=== PATIENT | male | born 1955 | race Caucasian/White ===

== ENCOUNTER → 2020-02-24 18:46 | Outpatient (ROUT) | payer MEDICARE, SELFPAY ==
[2020-02-24 19:03] LABS: Add Manual Diff / Slide Review NO; Basophils Absolute Auto 0 /uL (0-100); Basophils Percent Auto 0.3 % (0-2); Eosinophils Absolute Auto 0 /uL (0-450); Eosinophils Percent Auto 0.2 % (2-4); Hematocrit 49.6 % (41-53); Hemoglobin 16.5 g/dL (13.5-17.5); Lymphocytes Absolute Auto 2300 /uL (1100-4500); Lymphocytes Percent Auto 23.7 % (25-40); Mean Corpuscular HGB Conc 33.3 % (30-36); Mean Corpuscular Hemoglobin 30.3 PG (26-34); Mean Corpuscular Volume 90.8 fL (80-100); Monocytes Absolute Auto 700 /uL (0-900); Monocytes Percent Auto 7.3 % (3-14); Neutrophils Absolute Auto 6500 /uL (1500-7000); Neutrophils Percent Auto 68.5 % (50-75); Platelet Count 314 X10^3/uL (150-400); Red Blood Cell Count 5.47 X10^6/uL (4.5-5.9); Red Cell Distribution Width 14.3 % (11.6-14.8); White Blood Cell Count 9.5 X10^3/uL (4.5-11.0)
[2020-02-24 19:07] LABS: HEMOLYSIS < 15 (0-50); Iron 90 ug/dL (49-181)
[2020-02-24 19:13] LABS: Alanine Aminotransferase 26 IU/L (<50); Albumin 4.9 g/dL (3.5-5.0); Albumin Globulin Ratio 1.8 (1.0-2.8); Alkaline Phosphatase 121 U/L (38-126); Aspartate Aminotransferase 36 IU/L (17-59); BUN Creatinine Ratio 14.7 (6-22); Bilirubin Total 0.7 mg/dL (0.2-1.3); Blood Urea Nitrogen 10 mg/dL (9-20); Carbon Dioxide 21 mmol/L (22-32); Chloride 106 mmol/L (98-107); Cholesterol 255 mg/dL (140-199); Estimated Glomerular Filt Rate > 60.0 mL/min (>60); Globulin 2.8 g/dL (1.7-4.1); Glucose 97 mg/dL (80-110); HDL Cholesterol 46 mg/dL (40-60); HEMOLYSIS < 15 (0-50); LDL Cholesterol Calculated 175 mg/dL (<100); Potassium 4.1 mmol/L (3.4-5.1); Sodium 138 mmol/L (137-145); Total Protein 7.7 g/dL (6.3-8.2); Triglycerides 170 mg/dL (35-150)
[2020-02-24 19:18] LABS: Percent Iron Saturation 24 % (20-50); Total Iron Binding Capacity 377 ug/dL (261-462); Transferrin 296 mg/dL (206-381)
[2020-02-24 19:40] LABS: Prostate Specific Antigen 0.555 ng/mL (0.10-4.00)
[2020-02-24 19:44] LABS: Ferritin 27 ng/mL (18-464)
[2020-02-24 19:58] LABS: Vitamin B12 219 pg/mL (239-931)
== END ==
PROVIDERS: PCP Internal Medicine; Visit Provider Internal Medicine
DX: Z00.00 Encounter for general adult medical examination without abnormal findings (principal); R53.83 Other fatigue; D50.0 Iron deficiency anemia secondary to blood loss (chronic); E53.8 Deficiency of other specified B group vitamins; R39.9 Unspecified symptoms and signs involving the genitourinary system
CPT/HCPCS: 80053; 80061; 82607; 82728; 83540; 83550; 84153; 85025; 87086

== ENCOUNTER 2020-10-19 14:36 | Observation (INO) | payer OTHER, SELFPAY ==
[2020-10-19] VITALS (14 sets, daily range): BP systolic 150–201; BP diastolic 97–114; PULSE 80–99; RESP 17–22; TEMP 36.9; O2SAT 96–99
--- NOTE | 2020-10-19 14:49 | ED_ITS ---
HPI - General Adult General Chief complaint: Chest Pain Stated complaint: Chest pain, left arm pain, elev BP Time Seen by Provider: 10/19/20 14:48 Source: patient Mode of arrival: Ambulatory Limitations: no limitations History of Present Illness HPI narrative: Patient is a 65-year-old male. Has had a prior history of hypertension but is not currently on any medications. He states that he has new provider to come off his medications and he has been maintaining his high blood pressure based on diet and exercise. He states that 3 days ago he started to have upper back discomfort. He thinks that he woke up with the symptoms. Has been worsening slightly since then. Does not seem to get worse with palpation or movement however he does think it is worse with sitting. He denies any chest pain or shortness of breath. He also started to have left arm discomfort this morning. He describes it as a pressure sensation in his left arm and also somewhat into the left side of his neck. Is not worse with movement or touching. He also took his blood pressure today and it was elevated and was not going down on its own so decided come to the emergency department for evaluation. Related Data Allergies Allergy/AdvReac Type Severity Reaction Status Date / Time Morphine Allergy Unknown Uncoded 11/13/17 12:13 Review of Systems Constitutional Constitutional: Denies chills and Denies fever(s) ENT Ears, Nose, Mouth, and Throat: Denies sore throat Cardiovascular Cardiovascular: Denies chest pain, Denies dyspnea and Denies dyspnea on exertion Respiratory Respiratory: Denies cough, Denies dyspnea and Denies dyspnea on exertion Gastrointestinal Gastrointestinal: Denies abdominal pain, Denies nausea and Denies vomiting Musculoskeletal Musculoskeletal: Reports back pain (Upper back pain) Comments: Left arm pain Integumentary/Breasts Skin/Breast: Denies rash Neurologic Neurologic: Denies behavioral changes Psychiatric Psychiatric: Denies behavioral changes Hematologic/Lymphatic On Anticoagulants: No Patient History Medical History Hypertension Social History lives independently: Yes Exam Initial Vital Signs Initial Vital Signs: Vital Signs Temperature 98.5 F 10/19/20 15:05 Pulse Rate 98 H 10/19/20 15:05 Respiratory Rate 22 10/19/20 15:05 Blood Pressure 201/114 H 10/19/20 15:05 Pulse Oximetry 99 10/19/20 15:05 Const General: cooperative Limitations: mental status not altered HENMT Head: normal to inspection and normocephalic Chest Chest: No crepitus and No tenderness Resp Effort & Inspection: normal respiratory effort Auscultation: clear to auscultation bilaterally Cardio Rate: regular rate Rhythm: regular rhythm Pulses: dorsalis pedis present bilaterally GI Inspection: non-distended Palpation: soft, No firm and No tender Back/Spine/Pelvis Cervical Spine: No cervical spinal tenderness Thoracic/Lumbar Spine: No paraspinal tenderness, No thoracic spinal tenderness and No lumbar spinal tenderness Skin Lesions: no lesions Rashes: no rashes Neuro General: patient alert, patient awake and patient oriented x3 Cognition: normal cognition Speech: speech normal Extrem General: normal to inspection and capillary refill normal Psych Appearance: grossly normal and well kempt Scores HEART Score Heart Score history: Moderately Suspicious Heart Score EKG: Non-Specific repolarization disturbance Heart Score Age: > or = 65 years old Heart Score risk factors: 1-2 risk factors Heart Score troponin: < or = to normal limit Heart Score Total: 5 Course Orders Ordered: ED Orders 10/19/20 13:45 Complete Blood Count AUTO DIFF Stat Comprehensive Metabolic Panel Stat Lipase Stat Partial Thromboplastin Time Stat Prothrombin Time INR Stat Troponin & CK Cardiac Panel Stat 10/19/20 14:49 EKG-12 Lead Stat 10/19/20 14:50 XR chest 1V Stat 10/19/20 15:00 CT angio chest abdomen pelvis Stat 10/19/20 17:35 COVID19 - ADMIT ([facility] OPER[facility] swab/PCR) Stat Discontinued Medications Lisinopril (Lisinopril 10 Mg Tablet) 10 mg PO NOW ONE Stop: 10/19/20 17:25 Last Admin: 10/19/20 17:36 Dose: 10 mg Documented by: Vital Signs Vital signs: Vital Signs - 8 hr 10/19/20 15:05 10/19/20 15:38 10/19/20 16:00 Temperature 98.5 F Pulse Rate 98 H 92 H 94 H Respiratory Rate 22 17 20 Blood Pressure 201/114 H 171/108 H Pulse Oximetry 99 98 10/19/20 16:01 10/19/20 16:53 10/19/20 16:54 Temperature Pulse Rate 90 91 H 94 H Respiratory Rate 18 Blood Pressure 199/102 H 195/105 H Pulse Oximetry 98 96 98 10/19/20 17:00 10/19/20 17:30 10/19/20 17:36 Temperature Pulse Rate 93 H 91 H 99 H Respiratory Rate Blood Pressure 195/104 H 199/113 H 199/113 H Pulse Oximetry 98 98 Medical Decision Making Lab Data Lab results reviewed: Yes I reviewed the patient's lab results. Result diagrams: 10/19/20 13:45 10/19/20 13:45 Labs: Lab Results 10/19/20 10/19/20 10/19/20 Range/Units 13:45 13:45 13:45 WBC 13.1 H (4.5-11.0) X10^3/uL RBC 5.64 (4.5-5.9) X10^6/uL Hgb 17.4 (13.5-17.5) g/dL Hct 51.2 (41-53) % MCV 90.8 (80-100) fL MCH 30.8 (26-34) PG MCHC 33.9 (30-36) % RDW 13.2 (11.6-14.8) % Plt Count 362 (150-400) X10^3/uL Neut % (Auto) 56.6 (50-75) % Lymph % (Auto) 32.8 (25-40) % [place] % (Auto) 9.4 (3-14) % Eos % (Auto) 0.4 L (2-4) % Baso % (Auto) 0.8 (0-2) % Neut # (Auto) 7400 H (3597-8145) /uL Lymph # (Auto) 4300 (1840-7587) /uL [place] # (Auto) 1200 H (0-900) /uL Eos # (Auto) 100 (0-450) /uL Baso # (Auto) 100 (0-100) /uL PT 12.1 (10.1-12.7) SECONDS INR 1.1 (0.9-1.3) APTT 34 (26.4-36.2) SECONDS Sodium 138 (137-145) mmol/L Potassium 4.0 (3.4-5.1) mmol/L Chloride 103 (98-107) mmol/L Carbon Dioxide 23 (22-32) mmol/L BUN 14 (9-20) mg/dL Creatinine 0.77 (0.66-1.25) mg/dL Estimated GFR > 60.0 (>60) mL/min BUN/Creatinine Ratio 18.2 (6-22) Glucose 113 H (80-110) mg/dL Calcium 9.6 (8.4-10.2) mg/dL Total Bilirubin 0.4 (0.2-1.3) mg/dL AST 39 (17-59) IU/L ALT 36 (<50) IU/L Alkaline Phosphatase 129 H (38-126) U/L Total Creatine Kinase 98 (55-170) U/L CK-MB (CK-2) TNP CK-MB (CK-2) Rel Index TNP Troponin I < 0.012 (0.01-0.034) ng/mL Total Protein 8.6 H (6.3-8.2) g/dL Albumin 5.1 H (3.5-5.0) g/dL Globulin 3.5 (1.7-4.1) g/dL Albumin/Globulin Ratio 1.5 (1.0-2.8) Lipase 64 (23-300) U/L Imaging Data Chest x-ray: Radiologist's Impression: [address] [id number] ReportSigned Patient: Harrison Will R#: [id number]: 5Acct:[id number]/Sex: 65 / MDate of Service: 10/19/20Loc: EDAccession Number: [id number] Procedure: XR chest 1V Ordering Provider: Ryan Kennedy D.O. PROCEDURE: XR CHEST 1V INDICATIONS: Chest pain TECHNIQUE: One view of the chest was acquired. COMPARISON: None. FINDINGS: Surgical changes and devices: None. Lungs and pleura: Lungs are clear. No pleural effusions or pneumothorax. Mediastinum: Mediastinal contours appear normal. Heart size is normal. Bones and chest wall: No suspicious bony lesions. Overlying soft tissues appear unremarkable. IMPRESSION: No acute cardiopulmonary abnormality. Dictated by: Christopher Dawn M.D. on 10/19/2020 at 14:19 Approved by: Christopher Dawn M.D. on 10/19/2020 at 14:20 CT chest/abd/pelvis: Radiologist's Impression: [place] [id number] [place] [id number] Scan ReportSigned Patient: Harrison Will LMR#: [id number]: 5Acct:[id number]/Sex: 65 / MDate of Service: 10/19/20Loc: EDAccession Number: [id number] Procedure: CT angio chest abdomen pelvis Ordering Provider: Ryan Kennedy D.O. PROCEDURE: CT ANGIO CHEST ABDOMEN PELVIS INDICATIONS: Upper back pain and L arm pain, HTN eval for dissection TECHNIQUE: Precontrast 5 mm thick sections acquired from the lung apices to the iliac crests. After the administration of intravenous contrast, 2.5 mm thick sections again acquired from the lung apices to the iliac crests. Maximum intensity projection (MIP) oblique sagittal and coronal reformats were then acquired. For radiation dose reduction, the following was used: automated exposure control. COMPARISON: Merged With [facility], CT, ABDOMEN/PELVIS WITH CONTRAST, 02/28/2012, 10:01. [facility], CT, CT ABDOMEN PELVIS WITHOUT CONTRAST, 06/12/2017, 17:00. FINDINGS: Image quality: Excellent. AORTA: Aorta is normal in caliber. No dissection. There is mild atherosclerosis. CHEST: Lungs and pleura: Mild ground-glass infiltrates in the right lower lobe. There is a 2 mm nodule in the right upper lobe (series 6 image 100). No pleural effusions or pneumothorax. Central and peripheral airways are patent and normal in caliber. Mediastinum: Heart size is normal. There is moderate coronary artery calcification. No pericardial effusion. No mediastinal or hilar adenopathy by size criteria. Central pulmonary arteries are normal in size. Esophagus is normal in caliber. Small hiatal hernias. Bones and chest wall: No axillary adenopathy by size criteria. Thyroid gland is normal. No suspicious bony lesions. No vertebral body compression fractures. ABDOMEN: Vasculature: Celiac trunk and mesenteric arteries are patent. Renal arteries are also patent. Solid organs: Liver is normal in size and enhancement. Gallbladder is surgically absent. Biliary system is non dilated. Pancreas enhances normally. Spleen is normal in size and enhancement. No adrenal nodules. Both kidneys are normal in size and enhancement, without hydronephrosis. Peritoneum and bowel: No free fluid or air. Bowel loops are normal in caliber and wall thickness. There are numerous colonic diverticula. No CT findings to suggest acute diverticulitis. Nodes and vessels: No retroperitoneal or mesenteric adenopathy by size criteria. Inferior vena cava is normal in morphology. Miscellaneous: There are 3 small ventral hernias. A subxiphoid ventral hernia contains fat only. Just inferior and right, another ventral hernia contains a small segment of transverse colon. A periumbilical hernia contains a small segment of small intestine. Postsurgical changes related to prior ventral hernia repair. PELVIS: Genitourinary: Bladder wall thickness is normal. Miscellaneous: No inguinal adenopathy. Small fat containing inguinal hernias bilaterally. Bones: No suspicious bony lesions. No vertebral body compression fractures. IMPRESSION: 1. No aortic aneurysm or dissection. 2. Moderate coronary artery calcification. 3. A 2 mm right upper lobe lung nodule. Please see in close follow-up recommendation. 4. Diverticulosis without acute diverticulitis. 5. Multiple ventral hernias. Fleischner Society criteria for SOLID lung nodule followup. Nodule size (mm)Low-risk patientHigh-risk patient?4No follow-up neededFollow-up at 12 mo; if no change, no further follow-up>[id number] CT at 12 mo; if no change, no further follow-up needed.Initial follow-up CT at 6-12 mo, then 18-24 mo if no change. >6-8Initial follow-up CT at 6-12 mo, then 18-24 mo if no change. Initial follow- up CT at 3-6 mo, then 9-12 mo and 24 mo if no change. >8Follow-up CT at 3, 9, 24 mo. Or PET and/or biopsy.Same as for low-risk pts. Dictated by: Lucas Milton M.D. on 10/19/2020 at 15:30 Approved by: Lucas Milton M.D. on 10/19/2020 at 15:52 ECG Data Attestation: I personally reviewed and interpreted this ECG as follows: Prior ECG tracings: not available for review Interpretation: Sinus tachycardia Ventricular rate 101 Normal axis Normal QRS Normal QTC Nonspecific ST T wave changes MDM Narrative Medical decision making narrative: Patient does have nonspecific changes on his EKG. Troponin was negative. Has a heart score of 5. CT scan does not show any signs of aortic dissection. Had a discussion with him regarding his symptoms. Discussed options to include being discharged home versus staying for 2nd troponin versus being admitted to the hospital for risk stratification. He opted to be admitted to the hospital. Discussed the case with Dr. Greenberg with Internal Medicine who will admit for further evaluation. Patient expressed understanding and agreement. Discharge Plan Departure Patient Disposition: Admitted as Observation Admit Date/Time: 10/19/20 17:36 Admit Provider: Ash Greenberg
[2020-10-19 14:54] LABS: Add Manual Diff / Slide Review NO; Basophils Absolute Auto 100 /uL (0-100); Basophils Percent Auto 0.8 % (0-2); Eosinophils Absolute Auto 100 /uL (0-450); Eosinophils Percent Auto 0.4 % (2-4); Hematocrit 51.2 % (41-53); Hemoglobin 17.4 g/dL (13.5-17.5); Lymphocytes Absolute Auto 4300 /uL (1100-4500); Lymphocytes Percent Auto 32.8 % (25-40); Mean Corpuscular HGB Conc 33.9 % (30-36); Mean Corpuscular Hemoglobin 30.8 PG (26-34); Mean Corpuscular Volume 90.8 fL (80-100); Monocytes Absolute Auto 1200 /uL (0-900); Monocytes Percent Auto 9.4 % (3-14); Neutrophils Absolute Auto 7400 /uL (1500-7000); Neutrophils Percent Auto 56.6 % (50-75); Platelet Count 362 X10^3/uL (150-400); Red Blood Cell Count 5.64 X10^6/uL (4.5-5.9); Red Cell Distribution Width 13.2 % (11.6-14.8); White Blood Cell Count 13.1 X10^3/uL (4.5-11.0)
[2020-10-19 14:59] LABS: INR 1.1 (0.9-1.3); Prothrombin Time 12.1 SECONDS (10.1-12.7)
--- NOTE | 2020-10-19 15:00 | DI.CT.S_ITS ---
PROCEDURE: CT ANGIO CHEST ABDOMEN PELVIS INDICATIONS: Upper back pain and L arm pain, HTN eval for dissection TECHNIQUE: Precontrast 5 mm thick sections acquired from the lung apices to the iliac crests. After the administration of intravenous contrast, 2.5 mm thick sections again acquired from the lung apices to the iliac crests. Maximum intensity projection (MIP) oblique sagittal and coronal reformats were then acquired. For radiation dose reduction, the following was used: automated exposure control. COMPARISON: [facility], CT, ABDOMEN/PELVIS WITH CONTRAST, 02/28/2012, 10:01. [facility], CT, CT ABDOMEN PELVIS WITHOUT CONTRAST, 06/12/2017, 17:00. FINDINGS: Image quality: Excellent. AORTA: Aorta is normal in caliber. No dissection. There is mild atherosclerosis. CHEST: Lungs and pleura: Mild ground-glass infiltrates in the right lower lobe. There is a 2 mm nodule in the right upper lobe (series 6 image 100). No pleural effusions or pneumothorax. Central and peripheral airways are patent and normal in caliber. Mediastinum: Heart size is normal. There is moderate coronary artery calcification. No pericardial effusion. No mediastinal or hilar adenopathy by size criteria. Central pulmonary arteries are normal in size. Esophagus is normal in caliber. Small hiatal hernias. Bones and chest wall: No axillary adenopathy by size criteria. Thyroid gland is normal. No suspicious bony lesions. No vertebral body compression fractures. ABDOMEN: Vasculature: Celiac trunk and mesenteric arteries are patent. Renal arteries are also patent. Solid organs: Liver is normal in size and enhancement. Gallbladder is surgically absent. Biliary system is non dilated. Pancreas enhances normally. Spleen is normal in size and enhancement. No adrenal nodules. Both kidneys are normal in size and enhancement, without hydronephrosis. Peritoneum and bowel: No free fluid or air. Bowel loops are normal in caliber and wall thickness. There are numerous colonic diverticula. No CT findings to suggest acute diverticulitis. Nodes and vessels: No retroperitoneal or mesenteric adenopathy by size criteria. Inferior vena cava is normal in morphology. Miscellaneous: There are 3 small ventral hernias. A subxiphoid ventral hernia contains fat only. Just inferior and right, another ventral hernia contains a small segment of transverse colon. A periumbilical hernia contains a small segment of small intestine. Postsurgical changes related to prior ventral hernia repair. PELVIS: Genitourinary: Bladder wall thickness is normal. Miscellaneous: No inguinal adenopathy. Small fat containing inguinal hernias bilaterally. Bones: No suspicious bony lesions. No vertebral body compression fractures. IMPRESSION: 1. No aortic aneurysm or dissection. 2. Moderate coronary artery calcification. 3. A 2 mm right upper lobe lung nodule. Please see in close follow-up recommendation. 4. Diverticulosis without acute diverticulitis. 5. Multiple ventral hernias. Fleischner Society criteria for SOLID lung nodule followup. Nodule size (mm)Low-risk patientHigh-risk patient?4No follow-up neededFollow-up at 12 mo; if no change, no further follow-up>[id number] CT at 12 mo; if no change, no further follow-up needed.Initial follow-up CT at 6-12 mo, then 18-24 mo if no change. >6-8Initial follow-up CT at 6-12 mo, then 18-24 mo if no change. Initial follow-up CT at 3-6 mo, then 9-12 mo and 24 mo if no change. >8Follow-up CT at 3, 9, 24 mo. Or PET and/or biopsy.Same as for low-risk pts. Dictated by: Lucas Milton M.D. on 10/19/2020 at 15:30 Approved by: Lucas Milton M.D. on 10/19/2020 at 15:52
[2020-10-19 15:02] LABS: PTT Partial Thromboplastin Tim 34 SECONDS (26.4-36.2)
[2020-10-19 15:04] LABS: Alanine Aminotransferase 36 IU/L (<50); Albumin 5.1 g/dL (3.5-5.0); Albumin Globulin Ratio 1.5 (1.0-2.8); Alkaline Phosphatase 129 U/L (38-126); Aspartate Aminotransferase 39 IU/L (17-59); BUN Creatinine Ratio 18.2 (6-22); Bilirubin Total 0.4 mg/dL (0.2-1.3); Blood Urea Nitrogen 14 mg/dL (9-20); Calcium 9.6 mg/dL (8.4-10.2); Carbon Dioxide 23 mmol/L (22-32); Chloride 103 mmol/L (98-107); Creatine Kinase 98 U/L (55-170); Estimated Glomerular Filt Rate > 60.0 mL/min (>60); Globulin 3.5 g/dL (1.7-4.1); Glucose 113 mg/dL (80-110); HEMOLYSIS 18 (0-50); Lipase 64 U/L (23-300); Sodium 138 mmol/L (137-145); Total Protein 8.6 g/dL (6.3-8.2)
[2020-10-19 15:15] LABS: Troponin I < 0.012 ng/mL (0.01-0.034)
[2020-10-19] MEDS: lisinopriL 10 MG TABLET PO (17:36)
[2020-10-19 19:00] LABS: COVID19 - ADMIT (NP swab/PCR) Negative (Negative)
[2020-10-19 20:00] LABS: Hemoglobin A1C% w Est Avg Glu 5.6 % (4.0-6.0)
--- NOTE | 2020-10-19 20:34 | PM.HP.1 ---
History of Present Illness History of Present Illness Date Patient Seen: 10/19/20 Time Patient Seen: 20:00 Chief complaint: Chest pain, left arm pain, elev BP Narrative: Harrison Will is a 65 y.o. male with a past history of hypertension who presented to the ED after being seen at an urgent care clinic in [place] for elevated blood pressure, back and left arm pain he has had for the past 2 days. He normally takes his own blood pressures at home. He states that it is normally in the 150 over 90s. For the last couple of days it arose to 170/90 and today it was 189/102 rising as high as 190/120 in 3 serial blood pressures. He endorses having a headache, pain in his upper back that radiates to his left arm but no chest pain. He then went into the walk-in clinic and was advised to present to the emergency department due to his elevated blood pressure. He does endorse not being able to keep warm, denies visual changes denies difficulty swallowing denies chest pain or palpitations, denies shortness of breath her cough, denies nausea or vomiting but does have chronic abdominal pain due to having 3 abdominal ventral hernias, he denies dysuria or retention, he has chronic body aches and pains, he denies any skin lesions or rash, denies any numbing or tingling but did have headache which he does not normally have, denies any polyuria, diarrhea or constipation. In the ED, he received Lisinpril 10 mg po X 1 and an EKG done. Initial troponin was negative. Patient is afebrile, blood pressure 160/110, initial presenting blood pressure was 201/114, heart rate 94, respiratory rate 18, oxygen saturation of 98% on room air, he weighs 84.5 kg with a BMI of 30. WBC is mildly elevated at 13.1 rest of his CBC is within normal limits he does have a slight left shift, INR is 1.1, glucose is mildly elevated at 113, alk-phos is elevated at 129, total protein 8.6, albumin globulin ratio is 1.5, lipase is 64, and COVID-19 PCRs negative. Patient History Medical History (Updated 10/19/20 @ 20:36 by CRISTO Manning) History of ventral hernia Hypertension Hypertension Family & Social History Family History (Updated 03/17/21 @ 21:11 by CRISTO Manning) Mother Cancer Father Colon cancer Myocardial infarction Brother Hypertension Diabetes mellitus Brother Diabetes mellitus Hypertension Social History: household members none Prior Living Arrangements Apartment/Condo lives independently Yes Safety & Behavioral: Feels Safe in Current Yes Environment Been Physically Hurt or No Threatened By a Person Suicidal Ideation Description None Suicide Plan Description No Plan Tobacco & Substance use: Smoking Status Never smoker alcohol intake current alcohol intake frequency holiday/special occasion Substance Use Type does not use Meds Home Medications and Allergies Home Medications Medication Instructions Recorded Confirmed Type acetaminophen [Tylenol Extra 2,000 mg PO BEDTIME PRN 10/19/20 10/19/20 History Strength] Allergies Allergy/AdvReac Type Severity Reaction Status Date / Time morphine Allergy Unknown Verified 10/19/20 19:39 Review of Systems Review of Systems ROS: Yes All systems reviewed with the patient and are negative except as otherwise documented Exam Vital Signs (past 8 hours): - 10/19/20 15:05 10/19/20 15:38 10/19/20 16:00 Temperature 98.5 F Pulse Rate 98 H 92 H 94 H Respiratory Rate 22 17 20 Blood Pressure 201/114 H 171/108 H Pulse Oximetry 99 98 10/19/20 16:01 10/19/20 16:53 10/19/20 16:54 Temperature Pulse Rate 90 91 H 94 H Respiratory Rate 18 Blood Pressure 199/102 H 195/105 H Pulse Oximetry 98 96 98 10/19/20 17:00 10/19/20 17:30 10/19/20 17:36 Temperature Pulse Rate 93 H 91 H 99 H Respiratory Rate Blood Pressure 195/104 H 199/113 H 199/113 H Pulse Oximetry 98 98 10/19/20 18:00 10/19/20 19:27 10/19/20 19:50 Temperature 98.5 F Pulse Rate 89 98 H Respiratory Rate 18 Blood Pressure 177/108 H 182/106 H Pulse Oximetry 98 98 98 Oxygen Delivery Method Room Air Narrative Exam Narrative: Gen: Alert, oriented, moderately overweight 65 y.o. male, non-toxic appearing HEENT: normocephalic, atraumatic, conjunctiva clear, sclera non-icteric, oral mucosa pink and moist Neck: supple, full ROM, no JVD, trachea is midline Resp: Lungs CTA, non-labored breathing CV: RRR, no murmur or rubs Abd: soft, non-tender, normoactive BTs Skin: no lesions or rashes, dry and intact Neuro: Alert and oriented X 4 w/no focal deficits. Speech clear and coherent. Extremities: moves all 4 extremities, is ambulatory, negative Tacho?s sign Psyche: normal mood and affect. Objective Labs Result Diagrams: 10/19/20 13:45 10/19/20 13:45 Labs: Laboratory Results - last 24 hr 10/19/20 10/19/20 10/19/20 13:45 13:45 13:45 WBC 13.1 H RBC 5.64 Hgb 17.4 Hct 51.2 MCV 90.8 MCH 30.8 MCHC 33.9 RDW 13.2 Plt Count 362 Neut % (Auto) 56.6 Lymph % (Auto) 32.8 [place] % (Auto) 9.4 Eos % (Auto) 0.4 L Baso % (Auto) 0.8 Neut # (Auto) 7400 H Lymph # (Auto) 4300 [place] # (Auto) 1200 H Eos # (Auto) 100 Baso # (Auto) 100 PT 12.1 INR 1.1 APTT 34 Sodium 138 Potassium 4.0 Chloride 103 Carbon Dioxide 23 BUN 14 Creatinine 0.77 Estimated GFR > 60.0 BUN/Creatinine Ratio 18.2 Glucose 113 H Hemoglobin A1c Calcium 9.6 Total Bilirubin 0.4 AST 39 ALT 36 Alkaline Phosphatase 129 H Total Creatine Kinase 98 CK-MB (CK-2) TNP CK-MB (CK-2) Rel Index TNP Troponin I < 0.012 Total Protein 8.6 H Albumin 5.1 H Globulin 3.5 Albumin/Globulin Ratio 1.5 Lipase 64 SARS-CoV-2 (PCR) 10/19/20 10/19/20 13:45 17:45 WBC RBC Hgb Hct MCV MCH MCHC RDW Plt Count Neut % (Auto) Lymph % (Auto) [place] % (Auto) Eos % (Auto) Baso % (Auto) Neut # (Auto) Lymph # (Auto) [place] # (Auto) Eos # (Auto) Baso # (Auto) PT INR APTT Sodium Potassium Chloride Carbon Dioxide BUN Creatinine Estimated GFR BUN/Creatinine Ratio Glucose Hemoglobin A1c 5.6 Calcium Total Bilirubin AST ALT Alkaline Phosphatase Total Creatine Kinase CK-MB (CK-2) CK-MB (CK-2) Rel Index Troponin I Total Protein Albumin Globulin Albumin/Globulin Ratio Lipase SARS-CoV-2 (PCR) Negative Assessment & Plan Assessment & Plan narrative: Harrison Will will be observed overnight and further evaluated for ACS. Chest pain r/o ACS -Echo in am -Pharmacological stress test -Start ASA 81 tonight -EKG shows possible ischemic changes Hypertension -Start/continue metoprolol after stress test tomorrow -he received 1 dose of labetalol 5 mg x 1 tonight -will receive enalapril 0.625 q.6 hours for blood pressure control with parameters HLD -Lipid panel, pending -Start/continue atorvastatin 80 mg po at bedtime, start tonight Risk stratification -Fasting lipid panel pending -A1c 5.6% VTE prophylaxis: Wells risk score: 0 Enoxaparin 40 mg subQ daily Consults: none Patient is observation status as his stay is not likely to exceed 2 midnights. FEN: saline lock, heart healty no added salt diet, BMP and magnesium in the am. Dispo: probable discharge to home if negative stress test Code Status: DNR/DNI as discussed with patient COVID-19 COVID-19 status: Negative Result date/Date tested (Pos, Neg/Pending): 10/19/20 Scores Wells' Criteria for PE Clinical signs and symptoms of DVT: No PE is #1 Dx or equally likely: No Heart rate > 100: No Immobilization at least 3 days or surg in previous 4 weeks: No History of PE or DVT: No Hemoptysis: No Malignancy w/Treatment within 6 months or palliative: No Wells' PE Score total: 0 Quality VTE Deep Vein Thrombosis/Pulmonary Embolism Present on Admission: No MIPS - Admit Advanced Care Plan / Current Medications Measures: #47 ? Advanced Care Plan Clinician documentation instruction: document at admission. X I confirmed that the patient's Advance Care Plan is present, code status is documented, or surrogate decision maker is listed in the patient?s medical record. [SATISFIES [facility] PERFORMANCE] If Yes, Stop Here [] The patient?s Advance Care plan is not present because: (select) [[facility] PERFORMANCE EXCEPTION/EXCLUSION] [] I confirmed today that the patient does not wish or was not able to name a surrogate decision maker or provide an Advance Care Plan. [] Hospice care is currently being provided or has been provided this calendar year [] I did NOT confirm today the presence of an Advance Care Plan or surrogate decision maker documented within the patient's medical record. [DOES NOT SATISFY MIPS PERFORMANCE] #130 - Documentation of Current Medications in the Medical Record Clinician documentation instruction: use macro the first time you see a patient. X I have utilized all available immediate resources to obtain, update, or review the patient?s current medications. [SATISFIES MIPS PERFORMANCE] If Yes, Stop Here [] The patient is not eligible for medication reconciliation; the patient is in an emergent medical situation where delaying treatment would jeopardize the patient?s health. [MIPS PERFORMANCE EXCEPTION/EXCLUSION] [] I did NOT confirm, update or review the patient's current list of medications today. [DOES NOT SATISFY MIPS PERFORMANCE] MIPS - CL Central Venous Catheter Placement Measure: #76 ? Prevention of Central Venous Catheter (CVC) ? Related Bloodstream Infection Clinician documentation instruction: use macro every time you place a central line. [] All elements of Maximal Sterile Barrier Technique, including hand hygiene, skin prep, and sterile ultrasound technique (if used) were followed. [SATISFIES MIPS PERFORMANCE] If Yes, Stop Here [] If ?No?, the medical reason all elements were NOT used for medical reason [] (ex. emergent condition). [] Maximal Sterile Barrier Technique was not followed, no reason provided [DOES NOT SATISFY MIPS PERFORMANCE] MIPS - DC Heart Failure Measures: #5 - Heart Failure (HF): Angiotensin-Converting Enzyme (TOM) Inhibitor or Angiotensin Receptor Staci (ARB) Therapy for Left Ventricular Systolic Dysfunction (LVSD) and #8 - Heart Failure (HF): Beta-Staci Therapy for Left Ventricular Systolic Dysfunction (LVSD) Clinician documentation instruction: use macro at every CHF discharge. [] The patient has current or prior documentation of left ventricular ejection fraction (LVEF) less than 40%, or moderate or severely depressed left ventricular systolic function. Answer both: [SATISFIES MIPS PERFORMANCE] [] The patient was prescribed or already taking an Angiotensin-Converting Enzyme (TOM) Inhibitor, or Angiotensin Receptor Staci (ARB). [] The patient was prescribed or already taking a beta-staci. If Yes to Both, Stop Here [] Patient not prescribed/taking: [MIPS PERFORMANCE EXCEPTION/EXCLUSION] [] TOM or ARB for medical/patient/system reason(s) including [] (ex. allergy, intolerance, contraindication) [] Beta-staci for medical/patient/system reason(s) including [] (ex. allergy, intolerance, contraindication) [] Patient not prescribed/taking: [DOES NOT SATISFY MIPS PERFORMANCE] [] TOM or ARB, no reason given [] Beta-staci, no reason given
[2020-10-19] MEDS: LABETALOL 20 MG/4 ML SYRINGE 5 MG IV (20:38)
[2020-10-19 20:51] LABS: Troponin I < 0.012 ng/mL (0.01-0.034)
[2020-10-19] MEDS: ATORVASTATIN 20 MG TABLET 80 MG PO (21:58)
[2020-10-19] MEDS: ASPIRIN EC 81 MG TABLET PO (21:58)
[2020-10-19] MEDS: ENALAPRILAT 2.5 MG/ 2 ML VIAL 0.625 MG IV (21:58)
[2020-10-20] VITALS (7 sets, daily range): BP systolic 113–155; BP diastolic 73–100; PULSE 75–80; RESP 18–19; TEMP 36.5–37.3; O2SAT 96–98
--- NOTE | 2020-10-20 | DI.ECHO.S_ITS ---
[facility] +---------+ : : [address] : [place] : : : : [id number] : : : : Phone: [phone]+ Echocardiogram Report + + :Name: AICHA MARIE Study Date: 10/20/2020 Height: 66 in : :[facility] ReadingLocation: Weight: 186 lb : : Gender: Male BSA: 1.9 m2 : :: 1955 Age: 65 yrs BP: 146/93 mmHg: :Reason For Study: R/O ACS : :Ordering Physician: Alissa CHERRYformed By: Breanna Blankenship : :Referring: JULEE CHERRY : + + Interpretation Summary The ejection fraction is estimated to be 70-75%. There is no significant valvular heart disease. Procedure: A two-dimensional transthoracic echocardiogram with color flow and Doppler was performed. The study quality was technically adequate. There is no prior echocardiogram noted for this patient. The patient was in sinus rhythm with heart rates between 83-97 bpm during the exam. Left Ventricle: The left ventricle is normal in size. There is mild concentric left ventricular hypertrophy. The ejection fraction is estimated to be 70-75%. Left ventricular wall motion is normal. Diastolic parameters suggest probable normal left ventricular diastolic function and normal filling pressures. Right Ventricle: The right ventricle is normal in size and function. Atria: The left atrial size is normal. Right atrial size is normal. There is no Doppler evidence for an interatrial shunt. Mitral Valve: The mitral valve is normal in structure and function. There is trace mitral regurgitation. Aortic Valve: The aortic valve is trileaflet. The aortic valve opens well. There is no aortic valve stenosis. No aortic regurgitation is present. Tricuspid Valve: The tricuspid valve is normal in structure and function. Pulmonary artery pressures cannot be estimated because of the lack of a measurable TR jet velocity. No tricuspid regurgitation. Pulmonic Valve: The pulmonic valve leaflets are thin and pliable; valve motion is normal. There is no pulmonic valvular regurgitation. Great Vessels: The aortic root is normal size. The dimensions of the ascending aorta are normal. The inferior vena cava was not well visualized. Pericardium/ Pleura There is no pericardial effusion. There is no pleural effusion. MMode/2D Measurements & Calculations LVIDd: 3.8 cm LVOT diam: 2.0 cm LVIDs: 2.4 cm Ao root diam: 3.3 cm FS: 35.5 % asc Aorta Diam: 3.3 cm EPSS: 1.4 cm Ao Arch Diam (Prox Trans): 3.0 cm IVSd: 1.3 cm LVPWd: 1.1 cm LV mendoza. diameter/BSA (cm/m^2): 1.9 LV sys. diameter/BSA (cm/m^2): 1.3 LA A2 area: 13.4 cm2 RA long axis: 5.1 cm LA A4 area: 14.6 cm2 RA area: 13.2 cm2 LA length (vol): 4.9 cm RA vol: 29.1 ml LA vol: 33.9 ml RA : 15.0 ml/m2 LA vol index: 17.5 ml/m2 RVD1 (basal): 3.7 cm TAPSE: 2.1 cm Doppler Measurements & Calculations Ao V2 max: 171.5 cm/sec LVOT Max Contreras: 110.8 cm/sec Ao V2 mean: 119.4 cm/sec LV V1 max P.9 mmHg Ao max P.8 mmHg LV V1 VTI: 17.1 cm Ao mean P.5 mmHg JETHRO(I,D): 2.2 cm2 Ao V2 VTI: 25.2 cm JETHRO(V,D): 2.1 cm2 sev ratio: 0.68 JETHRO indexed to BSA (cm^2/m^2): 1.1 MV E max contreras: 65.2 cm/sec PA V2 max: 154.7 cm/sec MV A max contreras: 84.3 cm/sec PA V2 mean: 83.3 cm/sec MV E/A: 0.77 PA mean P.5 mmHg Med Peak E' Contreras: 9.1 cm/sec PA pr(Accel): 43.0 mmHg E/E' med: 7.2 Lat Peak E' Contreras: 11.9 cm/sec E/E' lat: 5.5 E/e' average: 6.3 MV dec time: 0.15 sec SV(LVOT): 55.2 ml Reading Physician:01:14 PM
[2020-10-20 02:40] LABS: Add Manual Diff / Slide Review NO; Alanine Aminotransferase 33 IU/L (<50); Albumin 4.2 g/dL (3.5-5.0); Albumin Globulin Ratio 1.6 (1.0-2.8); Alkaline Phosphatase 95 U/L (38-126); Aspartate Aminotransferase 33 IU/L (17-59); BUN Creatinine Ratio 17.9 (6-22); Basophils Absolute Auto 100 /uL (0-100); Basophils Percent Auto 0.7 % (0-2); Bilirubin Total 0.7 mg/dL (0.2-1.3); Bilirubin Unconjugated 0.6 mg/dL (0.0-1.1); Blood Urea Nitrogen 15 mg/dL (9-20); Calcium 9.1 mg/dL (8.4-10.2); Carbon Dioxide 29 mmol/L (22-32); Chloride 103 mmol/L (98-107); Cholesterol 235 mg/dL (140-199); Eosinophils Absolute Auto 100 /uL (0-450); Eosinophils Percent Auto 1.1 % (2-4); Estimated Glomerular Filt Rate > 60.0 mL/min (>60); Globulin 2.7 g/dL (1.7-4.1); Glucose 101 mg/dL (80-110); HDL Cholesterol 32 mg/dL (40-60); HEMOLYSIS 22 (0-50); Hemoglobin 15.5 g/dL (13.5-17.5); LDL Cholesterol Calculated 166 mg/dL (<100); Lymphocytes Absolute Auto 3100 /uL (1100-4500); Lymphocytes Percent Auto 34.7 % (25-40); Magnesium 2.3 mg/dL (1.6-2.3); Mean Corpuscular HGB Conc 33.8 % (30-36); Mean Corpuscular Hemoglobin 30.6 PG (26-34); Mean Corpuscular Volume 90.5 fL (80-100); Monocytes Absolute Auto 1100 /uL (0-900); Monocytes Percent Auto 12.3 % (3-14); Neutrophils Absolute Auto 4600 /uL (1500-7000); Neutrophils Percent Auto 51.2 % (50-75); Platelet Count 305 X10^3/uL (150-400); Potassium 4.2 mmol/L (3.4-5.1); Red Blood Cell Count 5.08 X10^6/uL (4.5-5.9); Red Cell Distribution Width 13.4 % (11.6-14.8); Sodium 136 mmol/L (137-145); Total Protein 6.9 g/dL (6.3-8.2); Triglycerides 185 mg/dL (35-150)
[2020-10-20 02:51] LABS: Troponin I < 0.012 ng/mL (0.01-0.034)
[2020-10-20] MEDS: ENALAPRILAT 2.5 MG/ 2 ML VIAL 0.625 MG IV (03:26)
[2020-10-20 03:34] LABS: Thyroid Stimulating Hormone 3.19 uIU/mL (0.47-4.68)
--- NOTE | 2020-10-20 09:10 | CM.DANOTE ---
DCP: Case received, EMR reviewed and met with patient. Introduced self and role. Was able to obtain information from patient regarding his baseline activity status prior to hospitalization. DCP assessment completed with information currently available. Patient is a 65 year old male who admitted yesterday afternoon to the care of the hospitalist team. PCP: Dr. Figueroa. Payer: confirmed: [employer] Medicare. Patient came to the hospital via private vehicle secondary to having a high blood pressure, as well as left arm discomfort. He initially went to urgent care in [place], but due to his high blood pressure, he was encouraged to come to the ER. Patient was admitted for hypertension. He will be having an echo and stress test today to rule out any cardiac issues. Met with patient in his room. He was sitting up in bed, pleasant. He is independent at baseline, lives alone. Stated he no longer works at [employer], had worked at [employer] for a while before the pandemic. He is now retired. P: DCP to continue to follow. Patient should be able to go home when he is deemed medically stable. Poonam Lenz RN/Nuclear Equipment Research Engineer
[2020-10-20] MEDS: lisinopriL 10 MG TABLET PO (09:17)
[2020-10-20] MEDS: ASPIRIN EC 81 MG TABLET PO (09:17)
[2020-10-20] MEDS: ENOXAPARIN 40 MG/0.4 ML SYRINGE SUBCUT (09:18)
--- NOTE | 2020-10-20 13:06 | PC.NURSE ---
Pt to Radiology for Resting Portion of Stress test via w/c by Radiology transport staff.
--- NOTE | 2020-10-20 15:55 | PM.TREADMILL ---
Cardiac Stress Test Report Referral & Results Date Patient Seen: 10/20/20 Time Patient Seen: 15:55 Requesting provider: Ash Greenberg Indication: chest pain Rest ECG: sinus rhythm with non specific st abnormalities Procedure Note: Standard Hair procotol, 6:06, 6.9 METS Reduced exercise capacity, +17% Normal hemodynamic response to exercise No chest pain or angina symptoms No significant ST changes at peak exercise, no ectopy Impression: Normal exercise stress test Please note: Actual ECG tracings can be found in the PACS system.
--- NOTE | 2020-10-20 17:35 | PM.DS.1 ---
History of Present Illness History of Present Illness Date Patient Seen: 10/20/20 Time Patient Seen: 17:36 Chief complaint: Chest pain, left arm pain, elev BP Narrative: As per CRISTO Manning: Harrison Will is a 65 y.o. male with a past history of hypertension who presented to the ED after being seen at an urgent care clinic in [place] for elevated blood pressure, back and left arm pain he has had for the past 2 days. He normally takes his own blood pressures at home. He states that it is normally in the 150 over 90s. For the last couple of days it arose to 170/90 and today it was 189/102 rising as high as 190/120 in 3 serial blood pressures. He endorses having a headache, pain in his upper back that radiates to his left arm but no chest pain. He then went into the walk-in clinic and was advised to present to the emergency department due to his elevated blood pressure. He does endorse not being able to keep warm, denies visual changes denies difficulty swallowing denies chest pain or palpitations, denies shortness of breath her cough, denies nausea or vomiting but does have chronic abdominal pain due to having 3 abdominal ventral hernias, he denies dysuria or retention, he has chronic body aches and pains, he denies any skin lesions or rash, denies any numbing or tingling but did have headache which he does not normally have, denies any polyuria, diarrhea or constipation. In the ED, he received Lisinpril 10 mg po X 1 and an EKG done. Initial troponin was negative. Patient is afebrile, blood pressure 160/110, initial presenting blood pressure was 201/114, heart rate 94, respiratory rate 18, oxygen saturation of 98% on room air, he weighs 84.5 kg with a BMI of 30. WBC is mildly elevated at 13.1 rest of his CBC is within normal limits he does have a slight left shift, INR is 1.1, glucose is mildly elevated at 113, alk-phos is elevated at 129, total protein 8.6, albumin globulin ratio is 1.5, lipase is 64, and COVID-19 PCRs negative. Discharge Providers Provider Date of admission: 10/19/20 17:36 Discharge Date: 10/20/20 Primary care physician: Benny Figueroa MD Discharge provider: Ash Greenberg DO Summary Hospital Course Discharge Diagnosis: 1. L arm and shoulder pain, acute, present on admission 2. Hypertensive urgency, improved, 3. HLD, present on admission 4. Elevated ASCVD risk 5. Abnormal EKG Hospital Course: Harrison Will is a 65 year old male admitted over concern for possible atypical angina after experiencing L arm and shoudler pain. He did have non-specific EKG changes and was moderate risk based on HEART score. He underwent echocardiogram and stress testing. Troponins were negative. Patient's stress testing was deemed low risk for cardiac ischemia, and his echocardiogram revealed slightly hyperdynamic left ventricle with an EF of 70% and no significant valvular disease. Cholesterol was elevated, ASCVD risk at his lowest blood pressure estimated at 15%. Patient has been suffering from decreased taste sensation over the past year and has increased sugary and salty food intake. (He has had 3 negative COVID tests since symptoms started). His BP improved with enalapril, and he was continued on enalapril as an outpatient. He was also discharged on atorvastatin 40 mg for his elevated ASCVD risk. For his lack of taste, I recommended trial of omeprazole for 14 days and he has also been waking up at night with daytime fatigue concerning for possible sleep apnea, so please consider sleep testing as an outpatient. Exam Vital Signs (past 8 hours): - 10/20/20 11:30 10/20/20 15:20 Temperature 98.8 F 99.0 F Pulse Rate 80 80 Respiratory Rate 18 18 Blood Pressure 154/96 H 155/100 H Pulse Oximetry 96 98 Oxygen Delivery Method Room Air Oxygen Flow Rate 0 Narrative Exam Narrative: Gen: Alert, oriented, moderately overweight 65 y.o. male, non-toxic appearing HEENT: normocephalic, atraumatic, conjunctiva clear, sclera non-icteric, oral mucosa pink and moist Neck: supple, full ROM, no JVD, trachea is midline Resp: Lungs CTA, non-labored breathing CV: RRR, no murmur or rubs Abd: soft, non-tender, normoactive BTs Skin: no lesions or rashes, dry and intact Neuro: Alert and oriented X 4 w/no focal deficits. Speech clear and coherent. Extremities: moves all 4 extremities, is ambulatory, negative Tacho?s sign Psyche: normal mood and affect. Objective Labs Result Diagrams: 10/20/20 02:20 10/20/20 02:20 Labs: Laboratory Results - last 24 hr 10/19/20 10/19/20 10/19/20 13:45 17:45 20:23 WBC RBC Hgb Hct MCV MCH MCHC RDW Plt Count Neut % (Auto) Lymph % (Auto) Mellette % (Auto) Eos % (Auto) Baso % (Auto) Neut # (Auto) Lymph # (Auto) Mellette # (Auto) Eos # (Auto) Baso # (Auto) Sodium Potassium Chloride Carbon Dioxide BUN Creatinine Estimated GFR BUN/Creatinine Ratio Glucose Hemoglobin A1c 5.6 Calcium Magnesium Total Bilirubin Conjugated Bilirubin Unconjugated Bilirubin AST ALT Alkaline Phosphatase Troponin I < 0.012 Total Protein Albumin Globulin Albumin/Globulin Ratio Triglycerides Cholesterol LDL Cholesterol, Calc HDL Cholesterol TSH SARS-CoV-2 (PCR) Negative 10/20/20 10/20/20 10/20/20 02:20 02:20 02:20 WBC 9.0 RBC 5.08 Hgb 15.5 Hct 46.0 MCV 90.5 MCH 30.6 MCHC 33.8 RDW 13.4 Plt Count 305 Neut % (Auto) 51.2 Lymph % (Auto) 34.7 Mellette % (Auto) 12.3 Eos % (Auto) 1.1 L Baso % (Auto) 0.7 Neut # (Auto) 4600 Lymph # (Auto) 3100 Mellette # (Auto) 1100 H Eos # (Auto) 100 Baso # (Auto) 100 Sodium 136 L Potassium 4.2 Chloride 103 Carbon Dioxide 29 BUN 15 Creatinine 0.84 Estimated GFR > 60.0 BUN/Creatinine Ratio 17.9 Glucose 101 Hemoglobin A1c Calcium 9.1 Magnesium 2.3 Total Bilirubin 0.7 Conjugated Bilirubin 0.0 Unconjugated Bilirubin 0.6 AST 33 ALT 33 Alkaline Phosphatase 95 Troponin I Total Protein 6.9 Albumin 4.2 Globulin 2.7 Albumin/Globulin Ratio 1.6 Triglycerides 185 H Cholesterol 235 H LDL Cholesterol, Calc 166 H HDL Cholesterol 32 L TSH 3.19 SARS-CoV-2 (PCR) 10/20/20 02:20 WBC RBC Hgb Hct MCV MCH MCHC RDW Plt Count Neut % (Auto) Lymph % (Auto) Mellette % (Auto) Eos % (Auto) Baso % (Auto) Neut # (Auto) Lymph # (Auto) Mellette # (Auto) Eos # (Auto) Baso # (Auto) Sodium Potassium Chloride Carbon Dioxide BUN Creatinine Estimated GFR BUN/Creatinine Ratio Glucose Hemoglobin A1c Calcium Magnesium Total Bilirubin Conjugated Bilirubin Unconjugated Bilirubin AST ALT Alkaline Phosphatase Troponin I < 0.012 Total Protein Albumin Globulin Albumin/Globulin Ratio Triglycerides Cholesterol LDL Cholesterol, Calc HDL Cholesterol TSH SARS-CoV-2 (PCR) [facility] Medical History (Updated 10/19/20 @ 20:36 by CRISTO Manning) History of ventral hernia Hypertension Hypertension Family History (Updated 10/19/20 @ 21:11 by CRISTO Manning) Mother Cancer Father Colon cancer Myocardial infarction Brother Hypertension Diabetes mellitus Brother Diabetes mellitus Hypertension Social History household members: none lives independently: Yes Smoking Status: Never smoker alcohol intake: current Discharge Plan Discharge Plan Patient Disposition: Home Provider Discharge Comment: You were admitted to the hospital with left sided arm and back pain. You had some minor changes on your EKG as well. Stress testing was performed which was deemed low risk for cardiac ischemia, or a blockage. You should follow up with Dr. Figueroa. I have sent a prescription for a blood pressure medication as your blood pressures were quite high and a cholesterol medication as your risk of stroke is calculated at approx. 15% over the next 10 years. This can be assisted with diet and exercise. Given your lack of taste and fatigue symptoms, would recommend an outpatient sleep study, or trial of omeprazole which can be purchased over the counter. Discharge orders & Medications Prescriptions: New atorvastatin 40 mg tablet 40 mg PO BEDTIME 30 Days Qty: 30 RF: 0 enalapril maleate 5 mg tablet 5 mg PO DAILY 30 Days Qty: 30 RF: 0 Continued acetaminophen 500 mg Capsule 2,000 mg PO BEDTIME PRN (Reason: Pain, Moderate) RF: 0 Follow up/Referrals: Benny Figueroa MD [Primary Care Provider] - Diet/Activity/Treatments Diet: Diet as Tolerated and Low-sodium Activity: As tolerated Visit Report/Discharge Packet Instructions: Low-Sodium Diet, Atorvastatin, Enalapril, Lower Sodium Intake Associated with Lower Blood Pressures and Decreased Str Discharge Data Primary Care Provider: Benny Figueroa V Attending Provider: Ash Greenberg VTE Deep Vein Thrombosis/Pulmonary Embolism Present on Admission: No MIPS - Admit Advanced Care Plan / Current Medications Measures: #47 ? Advanced Care Plan Clinician documentation instruction: document at admission. [] I confirmed that the patient's Advance Care Plan is present, code status is documented, or surrogate decision maker is listed in the patient?s medical record. [SATISFIES MIPS PERFORMANCE] If Yes, Stop Here [] The patient?s Advance Care plan is not present because: (select) [MIPS PERFORMANCE EXCEPTION/EXCLUSION] [] I confirmed today that the patient does not wish or was not able to name a surrogate decision maker or provide an Advance Care Plan. [] Hospice care is currently being provided or has been provided this calendar year [] I did NOT confirm today the presence of an Advance Care Plan or surrogate decision maker documented within the patient's medical record. [DOES NOT SATISFY MIPS PERFORMANCE] #130 - Documentation of Current Medications in the Medical Record Clinician documentation instruction: use macro the first time you see a patient. [] I have utilized all available immediate resources to obtain, update, or review the patient?s current medications. [SATISFIES MIPS PERFORMANCE] If Yes, Stop Here [] The patient is not eligible for medication reconciliation; the patient is in an emergent medical situation where delaying treatment would jeopardize the patient?s health. [MIPS PERFORMANCE EXCEPTION/EXCLUSION] [] I did NOT confirm, update or review the patient's current list of medications today. [DOES NOT SATISFY MIPS PERFORMANCE] MIPS - CL Central Venous Catheter Placement Measure: #76 ? Prevention of Central Venous Catheter (CVC) ? Related Bloodstream Infection Clinician documentation instruction: use macro every time you place a central line. [] All elements of Maximal Sterile Barrier Technique, including hand hygiene, skin prep, and sterile ultrasound technique (if used) were followed. [SATISFIES MIPS PERFORMANCE] If Yes, Stop Here [] If ?No?, the medical reason all elements were NOT used for medical reason [] (ex. emergent condition). [] Maximal Sterile Barrier Technique was not followed, no reason provided [DOES NOT SATISFY MIPS PERFORMANCE] MIPS - DC Heart Failure Measures: #5 - Heart Failure (HF): Angiotensin-Converting Enzyme (TOM) Inhibitor or Angiotensin Receptor Staci (ARB) Therapy for Left Ventricular Systolic Dysfunction (LVSD) and #8 - Heart Failure (HF): Beta-Staci Therapy for Left Ventricular Systolic Dysfunction (LVSD) Clinician documentation instruction: use macro at every CHF discharge. [] The patient has current or prior documentation of left ventricular ejection fraction (LVEF) less than 40%, or moderate or severely depressed left ventricular systolic function. Answer both: [SATISFIES MIPS PERFORMANCE] [] The patient was prescribed or already taking an Angiotensin-Converting Enzyme (TOM) Inhibitor, or Angiotensin Receptor Staci (ARB). [] The patient was prescribed or already taking a beta-staci. If Yes to Both, Stop Here [] Patient not prescribed/taking: [MIPS PERFORMANCE EXCEPTION/EXCLUSION] [] TOM or ARB for medical/patient/system reason(s) including [] (ex. allergy, intolerance, contraindication) [] Beta-staci for medical/patient/system reason(s) including [] (ex. allergy, intolerance, contraindication) [] Patient not prescribed/taking: [DOES NOT SATISFY MIPS PERFORMANCE] [] TOM or ARB, no reason given [] Beta-staci, no reason given
--- NOTE | 2020-10-20 18:31 | PC.NURSE ---
Patient taken for 2nd part of Stress Test this afternoon shortly after shift change at 1500. Upon return A&Ox3, ambulating around the room with steady gait this evening eating dinner. Dr. Greenberg reviewing results of labs and tests with pt at bedside this evening and cleared patient for discharge home. Discharge instructions, medications and follow up appointments reviewed with patient. He verbalized understanding and plans to follow up with PCP as soon as possible. Sister arrived at 1820 and he ambulated out of hospital at 1825 with all of his belongings to private car.
--- NOTE | 2020-10-20 19:50 | DI.NM.S_ITS ---
DATE OF SERVICE: 10/20/2020 PROCEDURE: Exercise perfusion study. INDICATIONS: Chest pain with underlying hypertension and hyperlipidemia. RADIOPHARMACEUTICAL: 25.2 millicurie technetium-99m Myoview IV was injected at stress and 13.3 millicurie technetium-99m Myoview IV was injected at rest. CARDIAC STRESS: The patient underwent exercise perfusion study under the supervision of an attending staff. He walked on Hair protocol for 6 minute and 06 seconds, achieved 90 percent of target heart rate, 7 METs of workload. Baseline blood pressure 132/88 mmHg. Peak blood pressure 162/102 mmHg. Functional aerobic impairment positive 17 percent. No chest pain or anginal symptoms. However, felt fatigue and some dyspnea. Baseline rhythm was sinus. During stress, no convincing ischemic changes seen. No significant arrhythmia seen. RAW DATA: There is increased subdiaphragmatic activity. GATED STUDY: Stress LV ejection fraction 77 percent without any significant wall motion abnormalities. Resting end-diastolic volume 78 mL. TID ratio 1.04, which is within normal limits. Lung/heart ratio 0.36, which is within normal limits. MYOCARDIAL PERFUSION: Stress supine, resting supine and stress prone images were compared to each other. The stress and resting supine images reveal small size, mildly decreased perfusion of basal inferior wall, which got completely resolved during prone images. Prone images suggestive of diaphragmatic tissue attenuation artifact. Prone images revealed normal myocardial perfusion. CONCLUSION: I will call this study a normal exercise perfusion stress test with evidence of diaphragmatic tissue attenuation artifact which got resolved during prone images. Functional aerobic impairment positive 17 percent with diminished exercise tolerance. Mildly hypertensive blood pressure response. No significant arrhythmia seen during exercise. Overall, this is a low-risk myocardial perfusion scan. Harrison Will - EMILY/ethel/maritza doc#: [id number]/job#: [id number] dd: 10/20/2020 17:14:00 dt: 10/20/2020 19:03:00 DICTATING MD/COPIES TO: Brittani Morris MD COPIES MNE: BRIGIDA;
== END 2020-10-20 18:31 | disposition home or self-care (01) ==
LOC: ED 14:48 → AC 17:37
PROVIDERS: Nurse Practitioner Family; Admitting Provider Internal Medicine; Emergency Provider Emergency Medicine; PCP Internal Medicine; Referring Provider Emergency Medicine; Visit Provider Internal Medicine
DX: I16.0 Hypertensive urgency (principal); R07.9 Chest pain, unspecified; M25.512 Pain in left shoulder; I10 Essential (primary) hypertension; E78.5 Hyperlipidemia, unspecified; Z20.822 Contact with and (suspected) exposure to COVID-19
CPT/HCPCS: 36415; 71045; 71275; 74174; 78452; 80048; 80053; 80061; 80076; 82550; 83036; 83690; 83735; 84443; 84484; 85025; 85610; 85730; 87635; 93005; 93010; 93017; 93306; 96372; 96374; 99283; 99284; G0378; A9502; J1650; Q9967

== ENCOUNTER → 2020-10-26 18:54 | Outpatient (ROUT) | payer OTHER, SELFPAY ==
[2020-10-26 19:45] LABS: BUN Creatinine Ratio 16.2 (6-22); Blood Urea Nitrogen 12 mg/dL (9-20); Calcium 9.7 mg/dL (8.4-10.2); Carbon Dioxide 26 mmol/L (22-32); Chloride 105 mmol/L (98-107); Estimated Glomerular Filt Rate > 60.0 mL/min (>60); Glucose 103 mg/dL (80-110); HEMOLYSIS < 15 (0-50); Potassium 4.7 mmol/L (3.4-5.1); Sodium 141 mmol/L (137-145)
== END ==
PROVIDERS: PCP Internal Medicine; Visit Provider Internal Medicine
DX: I10 Essential (primary) hypertension (principal)
CPT/HCPCS: 80048

== ENCOUNTER 2023-03-05 14:51 | Inpatient (IN) | payer MEDICARE, SELFPAY ==
[2023-03-05] VITALS (18 sets, daily range): BP systolic 156–214; BP diastolic 81–129; PULSE 81–101; RESP 16–18; TEMP 37–37.3; O2SAT 95–100; BMI 30.6; BMI 29.5
[2023-03-05 15:34] LABS: Add Manual Diff / Slide Review NO; Basophils Absolute Auto 100 /uL (0-100); Basophils Percent Auto 0.6 % (0-2); Eosinophils Absolute Auto 0 /uL (0-450); Eosinophils Percent Auto 0.2 % (2-4); Hematocrit 49.3 % (41-53); Hemoglobin 16.8 g/dL (13.5-17.5); Lymphocytes Absolute Auto 2400 /uL (1100-4500); Lymphocytes Percent Auto 18.6 % (25-40); Mean Corpuscular HGB Conc 34.1 % (30-36); Mean Corpuscular Hemoglobin 30.1 PG (26-34); Mean Corpuscular Volume 88.3 fL (80-100); Monocytes Absolute Auto 1100 /uL (0-900); Monocytes Percent Auto 8.5 % (3-14); Neutrophils Absolute Auto 9300 /uL (1500-7000); Neutrophils Percent Auto 72.1 % (50-75); Platelet Count 315 X10^3/uL (150-400); Red Blood Cell Count 5.58 X10^6/uL (4.5-5.9); White Blood Cell Count 12.9 X10^3/uL (4.5-11.0)
[2023-03-05 15:51] LABS: Alanine Aminotransferase 26 IU/L (<50); Albumin 4.8 g/dL (3.5-5.0); Albumin Globulin Ratio 1.4 (1.0-2.8); Alkaline Phosphatase 135 U/L (38-126); Aspartate Aminotransferase 30 IU/L (17-59); BUN Creatinine Ratio 15.9 (6-22); Bilirubin Total 0.8 mg/dL (0.2-1.3); Blood Urea Nitrogen 14 mg/dL (9-20); Calcium 9.3 mg/dL (8.4-10.2); Carbon Dioxide 24 mmol/L (22-32); Chloride 103 mmol/L (98-107); Estimated Glomerular Filt Rate > 60 mL/min (>60); Globulin 3.4 g/dL (1.7-4.1); Glucose 116 mg/dL (80-110); HEMOLYSIS 15 (0-50); Lipase 81 U/L (23-300); Potassium 4.3 mmol/L (3.4-5.1); Sodium 137 mmol/L (137-145); Total Protein 8.2 g/dL (6.3-8.2)
--- NOTE | 2023-03-05 16:11 | DI.CT.S_ITS ---
PROCEDURE: CT ABDOMEN PELVIS W CON INDICATIONS: periumbilical and RLQ tendermultiple ventral hernia surg TECHNIQUE: After the administration of intravenous contrast, axial sections acquired from the lung bases to the pubic symphysis. Coronal and sagittal reformats were performed. For radiation dose reduction, the following was used: automated exposure control, adjustment of mA and/or kV according to patient size. COMPARISON: [facility], CT, CT ABDOMEN PELVIS WITHOUT CONTRAST, 06/12/2017, 17:00. [facility], CT, ABDOMEN/PELVIS WITH CONTRAST, 02/28/2012, 10:01. FINDINGS: Image quality: Excellent. Lung bases: Unremarkable. Heart: No significant findings. ABDOMEN: Liver: Very mild diffuse hepatic steatosis. No solid liver lesion. Gallbladder: Surgically absent Biliary ducts: Unremarkable. Pancreas: Unremarkable. Spleen: Unremarkable. Adrenal Glands: Unremarkable. Kidneys and Ureters: Unremarkable. Stomach and Bowel: No dilated loops of bowel. No inflamed loops of bowel. Remote partial colectomy. Severe sigmoid diverticulosis without evidence of diverticulitis. Peritoneum: No abnormal intraperitoneal fluid. No free air. Ventral Wall: On image 42/2 as well as 46/5, there is a midline ventral hernia measuring 1.4 cm in with, which has nonobstructed transverse colon herniated within it. On image 37/2 and image 44/5 is a midline ventral hernia containing noninflamed fat measuring 1 cm in with. On image 38/2 and image 38/5, there is a very small left para midline ventral hernia which contains a very small amount of transverse colon, possibly incarcerated. However, there is no inflammatory change related to this. On image 67/2 and image 48/5 is a periumbilical hernia containing nonobstructed small bowel measuring 2.2 cm in diameter. Abdominal Nodes: No retroperitoneal or mesenteric adenopathy by size criteria. Vessels: Aorta and inferior vena cava are normal in size. PELVIS: Pelvic Organs: Unremarkable. Bladder: Unremarkable. Pelvic Nodes: No enlarged lymph nodes. Miscellaneous: No hernias are seen. Bones: No lytic or blastic bony lesions. No compression fractures. IMPRESSION: 1. There are multiple midline or near midline ventral hernias in fairly close proximity to each other. 1 of these hernias may potentially represent a small amount of incarcerated transverse colon. However, there is no inflammatory change related to this hernia. Another of these hernias contains nonobstructed transverse colon. 2. There is a periumbilical hernia containing nonobstructed small bowel. 3. Severe sigmoid diverticulosis without evidence of diverticulitis. Dictated by: Walter Valenzuela M.D. on 03/05/2023 at 17:04 Approved by: Walter Valenzuela M.D. on 03/05/2023 at 17:13
[2023-03-05 16:12] LABS: Bacteria Urine None Seen; Culture Indicated Urine Cult Not Indicated; RBC Urine 1-5/HPF (0-5/HPF); Squamous Epithelial Cell Urine 0-1 /HPF (0-5/HPF); WBC Urine 0-1/HPF (0-5/HPF)
[2023-03-05 16:38] LABS: Lactate (Lactic Acid) 1.5 mmol/L (0.7-2.1)
[2023-03-05] MEDS: SODIUM CHLORIDE 0.9% 1,000 ML 1000 ML IV (16:54)
--- NOTE | 2023-03-05 19:21 | ED.GENADULT ---
HPI - General Adult General Chief complaint: Abdominal Pain Stated complaint: possible hernia strangulation Time Seen by Provider: 03/05/23 16:11 Source: patient Mode of arrival: Family Vehicle History of Present Illness HPI narrative: 67-year-old gentleman with a history of hypertension and multiple complex abdominal surgeries abdominal hernias partial bowel obstructions presents with increasing abdominal pain and an area of cellulitis extending from the periumbilical area over the right side of his abdomen approximately 10 x 4 cm. There is an area of irritation in the middle of the scar where his umbilicus would typically be. This area is new there is no obvious drainage. Typically with his recurrent abdominal pain he has been able to manage with clear liquid diet and Tylenol to avoid hospitalization and admission. He has been getting worse over the last 24 hours with pain which is why he presents the cellulitis aspect is new. He is never experienced similar complaints. He denies fevers, chills, chest pain, palpitations, headache, myalgias Related Data Home Medications Medication Instructions Recorded Confirmed acetaminophen 500 mg capsule 2,000 mg PO BEDTIME PRN Pain, 10/19/20 03/05/23 Moderate Previous Rx's Medication Instructions Recorded rosuvastatin 10 mg tablet 10 mg PO DAILY #90 tabs 12/12/22 valsartan 160 mg tablet 160 mg PO DAILY #90 tabs 12/12/22 Allergies Allergy/AdvReac Type Severity Reaction Status Date / Time morphine Allergy Unknown Agitated Verified 03/05/23 22:30 amlodipine AdvReac Intermediate constipatio Verified 03/05/23 15:06 n enalapril AdvReac Intermediate Cough Verified 03/05/23 15:06 losartan AdvReac Intermediate Cramping Verified 03/05/23 22:31 of the Muscles Review of Systems Review of Systems Narrative: Pertinent positive and negative findings as per HPI Patient History Medical History Acute bacterial sinusitis Allergic rhinitis Cataracts, bilateral Chronic insomnia Essential hypertension Family history of colon cancer in father History of colonic polyps History of GI bleed History of ventral hernia Hypertension Mixed hyperlipidemia Transient ischemic attack (TIA) Surgical History Anesthesia History of cholecystectomy (~1994) History of hernia repair (~2003) Family History Mother Cancer Hypertension History of heart disease Father Colon cancer Myocardial infarction Brother Hypertension Diabetes mellitus Congestive heart failure Brother Diabetes mellitus Hypertension Social History details: Single, retired household members: none lives independently: Yes Smoking Status: Never smoker alcohol intake: current Smoking Status: Never smoker alcohol intake frequency: holidays/special occasions only Substance Use Type: does not use Exam Initial Vital Signs Initial Vital Signs: Vital Signs Temperature 99.2 F 03/05/23 15:00 Pulse Rate 96 H 03/05/23 15:00 Respiratory Rate 18 03/05/23 15:00 Blood Pressure 205/91 H 03/05/23 15:00 Pulse Oximetry 99 03/05/23 15:00 Oxygen Delivery Method Room Air 03/05/23 15:00 General: Healthy appearing, in mild distress. Able to give a complete and coherent history. Well-nourished well-developed HEENT: Moist mucous membranes, normal sclera with reactive pupils, Neck: No JVD, supple Respiratory: Lungs are clear to auscultation, no wheezing no rales no rhonchi. Full and symmetrical air movement Cardiac: Regular rate and rhythm no murmurs no bruits Abdomen: Mild distention, multiple scars, an area of cellulitis extending from an irritation from lower abdominal scar right side of the abdomen 10 x 14 cm without drainage or abscess. He does have increased left lower quadrant tenderness Skin: Warm and dry, Neurologic: Grossly neurologically intact with no obvious asymmetries or abnormalities Extremities: No trauma, well perfused Psych: Cooperative, appropriate insight and affect Course Orders Ordered: Acetaminophen (Acetaminophen 325 Mg Tablet) 650 mg PO Q6H PRN PRN Reason: Fever/Mild Pain (1-3) Atorvastatin Calcium (Atorvastatin 20 Mg Tablet) 20 mg PO BEDTIME RAMILA Last Admin: 03/06/23 00:52 Dose: 20 mg Documented By: JOSE Hydromorphone HCl (Hydromorphone 0.5 Mg Inj) 0.5 mg IV Q15MIN PRN PRN Reason: Pain, Last Admin: 03/05/23 20:27 Dose: 0.5 mg Documented By: RICARDO Hydromorphone HCl (Hydromorphone 0.5 Mg Inj) 0.5 mg IV Q2H PRN PRN Reason: Pain, Severe (7-10) Last Admin: 03/06/23 00:13 Dose: 0.5 mg Documented By: JOSE Sodium Chloride (Normal Saline 0.9%) 1,000 mls @ 150 mls/hr IV CONT RAMILA Last Infusion: 03/05/23 21:03 Dose: 0 mls/hr Documented By: Admin: 03/05/23 20:21 Dose: 150 mls/hr Documented By: IRCARDO Dextrose/Sodium Chloride (Dextrose 5%-0.9% Ns) 1,000 mls @ 100 mls/hr IV CONT RAMILA Last Admin: 03/05/23 22:00 Dose: 100 mls/hr Documented By: JOSE Piperacillin Sod/Tazobactam (Sod 3.375 gm/ Sodium Chloride) 100 mls @ 25 mls/hr IV Q8H RAMILA Last Infusion: 03/06/23 04:19 Dose: 0 mls/hr Documented By: Admin: 03/06/23 00:09 Dose: 25 mls/hr Documented By: JOSE Naloxone HCl (Naloxone 0.4 Mg/Ml Vial) 0.2 mg IV Q2MIN PRN PRN Reason: Opiate Reversal Non-Formulary Medication (Acetaminophen) 2,000 mg PO BEDTIME PRN PRN Reason: Pain, Moderate Ondansetron HCl (Ondansetron 4 Mg Odt) 4 mg PO NOW PRN PRN Reason: Nausea And Vomiting Ondansetron HCl (Ondansetron 4 Mg/2 Ml Inj) 4 mg IV Q4HR PRN PRN Reason: Nausea And Vomiting Valsartan (Valsartan 80 Mg Tablet) 160 mg PO BEDTIME RAMILA Last Admin: 03/06/23 00:09 Dose: 160 mg Documented By: JOSE Discontinued Medications Atorvastatin Calcium (Atorvastatin 20 Mg Tablet) 20 mg PO DAILY COUNTS INCLUDE 234 BEDS AT THE [facility] Atorvastatin Calcium (Atorvastatin 20 Mg Tablet) 20 mg PO BEDTIME RAMILA Sodium Chloride (Normal Saline 0.9%) 1,000 mls @ 1,000 mls/hr IV BOLUS ONE Stop: 03/05/23 17:10 Last Infusion: 03/05/23 17:58 Dose: 0 mls/hr Documented By: Admin: 03/05/23 16:54 Dose: 1,000 mls/hr Documented By: KARLENE Piperacillin Sod/Tazobactam (Sod 4.5 gm/ Sodium Chloride) 100 mls @ 200 mls/hr IV NOW ONE Stop: 03/05/23 19:59 Last Infusion: 03/05/23 21:03 Dose: 0 mls/hr Documented By: Admin: 03/05/23 20:23 Dose: 200 mls/hr Documented By: RICARDO Ondansetron HCl (Ondansetron 4 Mg/2 Ml Inj) 4 mg IV NOW PRN PRN Reason: Nausea And Vomiting Valsartan (Valsartan 80 Mg Tablet) 160 mg PO DAILY RAMILA Vital Signs Vital signs: Vital Signs - 8 hr 03/05/23 15:00 03/05/23 16:43 03/05/23 17:00 Temperature 99.2 F Pulse Rate 96 H 90 86 Respiratory Rate 18 Blood Pressure 205/91 H Pulse Oximetry 99 95 96 Oxygen Delivery Method Room Air 03/05/23 17:30 03/05/23 18:00 03/05/23 18:30 Temperature Pulse Rate 86 84 86 Respiratory Rate Blood Pressure Pulse Oximetry 100 97 100 Oxygen Delivery Method 03/05/23 19:00 Temperature Pulse Rate 88 Respiratory Rate Blood Pressure Pulse Oximetry 96 Oxygen Delivery Method Medical Decision Making Lab Data 03/05/23 15:13 03/05/23 21:22 Labs: Lab Results 03/05/23 03/05/23 03/05/23 Range/Units 15:13 15:13 15:16 WBC 12.9 H (4.5-11.0) X10^3/uL RBC 5.58 (4.5-5.9) X10^6/uL Hgb 16.8 (13.5-17.5) g/dL Hct 49.3 (41-53) % MCV 88.3 (80-100) fL MCH 30.1 (26-34) PG MCHC 34.1 (30-36) % RDW 14.0 (11.6-14.8) % Plt Count 315 (150-400) X10^3/uL Neut % (Auto) 72.1 (50-75) % Lymph % (Auto) 18.6 L (25-40) % [place] % (Auto) 8.5 (3-14) % Eos % (Auto) 0.2 L (2-4) % Baso % (Auto) 0.6 (0-2) % Neut # (Auto) 9300 H (0203-4456) /uL Lymph # (Auto) 2400 (7845-1518) /uL [place] # (Auto) 1100 H (0-900) /uL Eos # (Auto) 0 (0-450) /uL Baso # (Auto) 100 (0-100) /uL Sodium 137 (137-145) mmol/L Potassium 4.3 (3.4-5.1) mmol/L Chloride 103 (98-107) mmol/L Carbon Dioxide 24 (22-32) mmol/L BUN 14 (9-20) mg/dL Creatinine 0.88 (0.66-1.25) mg/dL Estimated GFR > 60 (>60) mL/min BUN/Creatinine Ratio 15.9 (6-22) Glucose 116 H (80-110) mg/dL Lactate 1.5 (0.7-2.1) mmol/L Calcium 9.3 (8.4-10.2) mg/dL Total Bilirubin 0.8 (0.2-1.3) mg/dL AST 30 (17-59) IU/L ALT 26 (<50) IU/L Alkaline Phosphatase 135 H (38-126) U/L Total Protein 8.2 (6.3-8.2) g/dL Albumin 4.8 (3.5-5.0) g/dL Globulin 3.4 (1.7-4.1) g/dL Albumin/Globulin Ratio 1.4 (1.0-2.8) Lipase 81 (23-300) U/L Urine RBC (0-5/HPF) Urine WBC (0-5/HPF) Ur Squamous Epith Cells (0-5/HPF) Urine Bacteria (None) Ur Culture Indicated? 03/05/23 Range/Units 15:21 WBC (4.5-11.0) X10^3/uL RBC (4.5-5.9) X10^6/uL Hgb (13.5-17.5) g/dL Hct (41-53) % MCV (80-100) fL MCH (26-34) PG MCHC (30-36) % RDW (11.6-14.8) % Plt Count (150-400) X10^3/uL Neut % (Auto) (50-75) % Lymph % (Auto) (25-40) % [place] % (Auto) (3-14) % Eos % (Auto) (2-4) % Baso % (Auto) (0-2) % Neut # (Auto) (8860-9836) /uL Lymph # (Auto) (4242-8560) /uL [place] # (Auto) (0-900) /uL Eos # (Auto) (0-450) /uL Baso # (Auto) (0-100) /uL Sodium (137-145) mmol/L Potassium (3.4-5.1) mmol/L Chloride (98-107) mmol/L Carbon Dioxide (22-32) mmol/L BUN (9-20) mg/dL Creatinine (0.66-1.25) mg/dL Estimated GFR (>60) mL/min BUN/Creatinine Ratio (6-22) Glucose (80-110) mg/dL Lactate (0.7-2.1) mmol/L Calcium (8.4-10.2) mg/dL Total Bilirubin (0.2-1.3) mg/dL AST (17-59) IU/L ALT (<50) IU/L Alkaline Phosphatase (38-126) U/L Total Protein (6.3-8.2) g/dL Albumin (3.5-5.0) g/dL Globulin (1.7-4.1) g/dL Albumin/Globulin Ratio (1.0-2.8) Lipase (23-300) U/L Urine RBC 1-5/hpf (0-5/HPF) Urine WBC 0-1/hpf (0-5/HPF) Ur Squamous Epith Cells 0-1 /hpf (0-5/HPF) Urine Bacteria None seen (None) Ur Culture Indicated? Cult not indicated Urine Dip Bedside Urine Glucose Negative Bedside Urine Bilirubin - Negative Bedside Urine Ketone - Negative Urine Specific [place] 1.015 Bedside Urine Occult Blood + Bedside Urine pH 6.0 Bedside Urine Protein - Negative Bedside Urine Urobilinogen - Negative Bedside Urine Nitrite - Negative Bedside Urine Leukocytes - Negative Esterase Point of care testing: Urine Dip Bedside Urine Glucose Negative Bedside Urine Bilirubin - Negative Bedside Urine Ketone - Negative Urine Specific [place] 1.015 Bedside Urine Occult Blood + Bedside Urine pH 6.0 Bedside Urine Protein - Negative Bedside Urine Urobilinogen - Negative Bedside Urine Nitrite - Negative Bedside Urine Leukocytes - Negative Esterase MDM Narrative Medical decision making narrative: CC: Recurrent abdominal pain with new area of cellulitis over the abdomen, this is a new complication to a chronic problem uncertain prognosis Complicating co-morbidities: Multiple significant abdominal surgeries hernias and portions of bowel adherent to ventral wall Data collected from: patient, Medical records reviewed: Recent primary care notes are reviewed and discharge summary for a chest pain admission in October of 2020 reviewed Differential considered: Exam documented above, pertinent findings include: Abdominal pain, 10 x 4 area of cellulitis without abscess or drainage Lab Test results independently reviewed as above. Pertinent findings: Mild leukocytosis at 12.9 with out significant anemia Chemistries are reassuring with normal creatinine Lactic is 1.5 Lipase is 81 Imaging studies independently reviewed: CT of the abdomen official radiology read indicates: There are multiple midline or near midline ventral hernias in fairly close proximityto each other.? 1 of these hernias may potentially represent a small amount of incarcerated transverse colon.? However, there is no inflammatory change related to this hernia.? Another of these hernias contains nonobstructed transverse colon. There is a periumbilical hernia containing nonobstructed small bowel. Severe sigmoid diverticulosis without evidence of diverticulitis. ? ? Consultations: Care is reviewed with Dr. Lawrence. He will personally review the CT scan at this point he agrees with hospitalization, in absence of acute surgical findings this evening he was in the patient morning. Dr Cohn, tele hospitalist who agrees with plan and admission. Treatments: Parenteral antibiotics, narcotics Re-evaluations: Discussed concerns with patient including cellulitis secondary to developing fistula. He notes that his father, who was on hospice at the time, had similar findings that ended up being dramatically complicated and eventually caused his . Patient is willing to consider hospitalization. Discussion: 67-year-old gentleman with chronic history of abdominal pain partial obstructions and today has new irritation midline lower abdominal scar without obvious abscess or drainage but expanding cellulitis from that area. Concern for fistulization. I am not seeing evidence of bowel obstruction or sepsis at this time. Patient will be admitted to the hospitalist service Discharge Plan Departure Patient Disposition: Admitted as Observation Clinical Impression: Abdominal wall cellulitis Ventral hernia Qualifiers: Obstruction and gangrene presence: with obstruction but without gangrene Qualified Code(s): K43.6 - Other and unspecified ventral hernia with obstruction, without gangrene Partial intestinal obstruction Qualifiers: Intestinal obstruction type: obstruction due to adhesions Qualified Code(s): K56.51 - Intestinal adhesions [bands], with partial obstruction Admit Date/Time: 03/05/23 20:17 Admit Provider: Cain Cohn
[2023-03-05] MEDS: SODIUM CHLORIDE 0.9% 1,000 ML 150 ML IV (20:21)
[2023-03-05] MEDS: PIPERACILLIN/TAZO 4.5 GM in SODIUM CHLORIDE 0.9% 100 ML IV (20:23)
[2023-03-05] MEDS: HYDROMORPHONE 0.5 MG INJ IV (20:27)
[2023-03-05 21:44] LABS: BUN Creatinine Ratio 14.5 (6-22); Blood Urea Nitrogen 11 mg/dL (9-20); Calcium 8.7 mg/dL (8.4-10.2); Carbon Dioxide 18 mmol/L (22-32); Chloride 107 mmol/L (98-107); Estimated Glomerular Filt Rate > 60 mL/min (>60); Glucose 99 mg/dL (80-110); HEMOLYSIS < 15 (0-50); Potassium 3.8 mmol/L (3.4-5.1); Sodium 138 mmol/L (137-145)
[2023-03-05] MEDS: DEXTROSE 5%-0.9% NS 1,000 ML 100 ML IV (22:00)
[2023-03-06] VITALS (13 sets, daily range): BP systolic 98–183; BP diastolic 66–104; PULSE 67–117; RESP 13–22; TEMP 36.1–37.4; O2SAT 93–97; BMI 30.6
--- NOTE | 2023-03-06 | DI.RAD.S_ITS ---
PROCEDURE: XR GASTROGRAFIN CHALLENGE COMPARISON: None. INDICATIONS: sbo FINDINGS: Single supine view of the abdomen at two and a corner hours was obtained. This demonstrates Gastrografin in a decompressed stomach, throughout small bowel loops, and throughout the colon. There are surgical changes of prior cholecystectomy and ventral hernia repair. IMPRESSION: 1. No radiographic evidence of acute small bowel obstruction. Dictated by: Carolina Christiansen M.D. on 03/06/2023 at 18:32 Approved by: Carolina Christiansen M.D. on 03/06/2023 at 18:33
--- NOTE | 2023-03-06 | PATH_ITS ---
[facility] Accession Number: [id number] No. of containers..02 Tissue . 01 Material submitted: . PART A: small bowel - SMALL BOWEL PART B: body - MESH . 01 Diagnosis: A. Small Bowel, Segmental Resection: Small bowel with mild submucosal hemorrhage firmly adherent to surgical mesh. Skin with superficial active inflammation/cellulitis and subcutaneous abscess (see comment). Negative for active, chronic and microscopic colitis. Negative for acute ischemia. Negative for granulomas, dysplasia, and malignancy. B. Mesh, Removal: Surgical mesh with adherent fibroadipose tissue. [facility] 03/18/2023 1734 Local . 01 Comment: A. 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 No gross or microscopic evidence of fistula tract is identified. . 01 Electronically signed: . Carito Garcia MD, Pathologist NPI- [id number] . 01 Gross description: . A. Received in formalin labeled with the patient's name, , and small bowel, and consists of an unoriented segment of small bowel measuring 11.1 cm in length by 3.4 cm in average diameter and mesentery extending out to 3.2 cm. Adherent to the central portion of the specimen is abel, membranous material consistent with mesh along with an adherent fragment of adipose tissue with an attached ellipse of skin. The adherent skin and adipose tissue measures 7.8 x 5.1 x 2.0 cm. The cut surface is [place]-abel and wrinkled, with no lesions or punctate areas grossly identified. The skin margins are inked orange. The serosa is brown and roughened with no additional adhesed areas. One staple line is inked blue while the opposite staple line is inked black, and the mesenteric margin is inked green. The mucosa is abel and velvety with normal appearing folds. No polyps, lesions, or perforations are identified. Sectioning through the bowel, area of attachment, and skin reveals yellow to abel fibroconnective tissue. There is an outpouching of the bowel wall measuring 1.6 cm in depth, and a cyst-like structure located under the cutaneous surface measuring 1.8 x 1.1 x 0.7 cm and filled with abel grumous material. Photographs are taken. No fistula tract or discrete lesions are grossly identified. The bowel crane average 0.3 cm thick with no discrete lesions or perforations identified. No lymph node candidates are identified upon palpation. Reversing [place] sections are submitted as follows: A1: Reversing [place] margins en face. A2-A4: Composite section from skin to small bowel. A5: Reversing [place] unremarkable bowel. Photographs taken. A6-A7: Additional cutaneous surface. A8: Mucosa in relation to underlying mesh. ([id number]) B. Received in formalin labeled with the patient's name, , and mesh, and consists of a abel, membranous fragment of material consistent with mesh with adherent yellow to abel soft tissue measuring 10.2 x 3.6 x 1.3 cm. Sectioning reveals a soft, yellow to abel, and gritty cut surface possibly consistent with calcification adjacent to the mesh. No distinct lesions are grossly identified. Reversing [place] sections of adjacent soft tissue are submitted in cassette B1. ([id number]) /[facility] 03/13/2023 [facility]8 Local . 01 Pathologist provided ICD-10: K43.0 . 01 CPT . 428932, [id number] Specimen Comment: A courtesy copy of this report has been sent to [phone] Performed at: 01 [facility] [address] [place] [address] [address], [place], [place] [id number] MD Luciano Garcia MD Phone: [phone]
[2023-03-06] MEDS: VALSARTAN 80 MG TABLET 160 MG PO ×2 (00:09→20:31)
[2023-03-06] MEDS: PIPERACILLIN/TAZO 3.375 GM in SODIUM CHLORIDE 0.9% 100 ML IV ×3 (00:09→15:51)
[2023-03-06] MEDS: HYDROMORPHONE 0.5 MG INJ IV ×3 (00:13→20:33)
[2023-03-06] MEDS: ATORVASTATIN 20 MG TABLET PO ×2 (00:52→20:30)
--- NOTE | 2023-03-06 01:38 | PM.HP.1 ---
History of Present Illness History of Present Illness Chief complaint: possible hernia strangulation Narrative: 67-year-old gentleman with a history of hypertension and multiple complex abdominal surgeries abdominal hernias partial bowel obstructions presents with increasing abdominal pain and an area of cellulites extending from the periumbilical area over the right side of his abdomen approximately 10 x 4 cm.? There is an area of irritation in the middle of the scar where his umbilicus would typically be.? This area is new and there is no obvious drainage.? Typically with his recurrent abdominal pain he has been able to manage with clear liquid diet and Tylenol to avoid hospitalization and admission.? He has been getting worse over the last 24 hours with pain which is why he presents the cellulitis aspect is new.? He is never experienced similar complaints.? He denies fevers, chills, chest pain, palpitations, headache, myalgias. Surgery was consulted and will see the patient in the morning. Currently without any abdominal pain. [facility] Medical History Acute bacterial sinusitis Allergic rhinitis Cataracts, bilateral Chronic insomnia Essential hypertension Family history of colon cancer in father History of colonic polyps History of GI bleed History of ventral hernia Hypertension Mixed hyperlipidemia Transient ischemic attack (TIA) Surgical History Anesthesia History of cholecystectomy (~1994) History of hernia repair (~2003) Family History Mother Cancer Hypertension History of heart disease Father Colon cancer Myocardial infarction Brother Hypertension Diabetes mellitus Congestive heart failure Brother Diabetes mellitus Hypertension Social History details: Single, retired household members: none lives independently: Yes Smoking Status: Never smoker alcohol intake: current Meds Home Medications and Allergies Home Medications Medication Instructions Recorded Confirmed Type acetaminophen 500 mg capsule 2,000 mg PO BEDTIME PRN Pain, 10/19/20 03/05/23 History Moderate rosuvastatin 10 mg tablet 10 mg PO DAILY #90 tabs 12/12/22 03/05/23 Rx valsartan 160 mg tablet 160 mg PO DAILY #90 tabs 12/12/22 03/05/23 Rx Allergies Allergy/AdvReac Type Severity Reaction Status Date / Time morphine Allergy Unknown Agitated Verified 03/05/23 22:30 amlodipine AdvReac Intermediate constipatio Verified 03/05/23 15:06 n enalapril AdvReac Intermediate Cough Verified 03/05/23 15:06 losartan AdvReac Intermediate Cramping Verified 03/05/23 22:31 of the Muscles Review of Systems Constitutional Constitutional: Reports as per HPI and Reports system reviewed and no additional complaints, except as documented Eyes Eyes: Reports as per HPI and Reports system reviewed and no additional complaints, except as documented ENT Ears, Nose, Mouth, and Throat: Yes as per HPI, Yes system reviewed and no additional complaints, except as documented, No dysphagia, No neck pain and No odynophagia Cardiovascular Cardiovascular: Reports system reviewed and no additional complaints, except as documented Respiratory Respiratory: Reports system reviewed and no additional complaints, except as documented Gastrointestinal Gastrointestinal: Reports abdominal pain, Denies belching, Denies melena, Denies bloating, Denies hematochezia, Reports change in bowel habits, Denies tenesmus, Denies change in stool character, Denies coffee ground emesis, Denies constipation, Denies cramping, Denies dysphagia, Denies excessive flatus, Denies heartburn, Denies loose stools, Denies nausea, Denies odynophagia, Denies vomiting and Denies hematemesis Musculoskeletal Musculoskeletal: Denies as per HPI, Denies system reviewed and no additional complaints, except as documented, Denies abnormal gait, Denies back pain, Denies myalgias, Denies arthralgias, Denies joint swelling, Denies muscle cramps, Denies muscle weakness, Denies neck pain, Denies numbness and Denies radiating pain into limb Neurologic Neurologic: Denies abnormal gait, Denies confusion and Denies numbness Psychiatric Psychiatric: Denies as per HPI, Reports system reviewed and no additional complaints, except as documented, Denies abnormal sleep pattern, Denies anxiety, Denies change in appetite, Denies confusion, Denies depression and Denies auditory hallucinations Exam Vital Signs (past 8 hours): - 03/05/23 18:00 03/05/23 18:30 03/05/23 19:00 Temperature Pulse Rate 84 86 88 Respiratory Rate Blood Pressure Pulse Oximetry 97 100 96 Oxygen Delivery Method Oxygen Flow Rate 03/05/23 19:21 03/05/23 19:22 03/05/23 19:22 Temperature Pulse Rate 96 H 101 H Respiratory Rate Blood Pressure 169/100 H Pulse Oximetry 98 99 Oxygen Delivery Method Room Air Oxygen Flow Rate 03/05/23 19:30 03/05/23 19:31 03/05/23 19:31 Temperature Pulse Rate 92 H 90 Respiratory Rate Blood Pressure 214/129 H Pulse Oximetry 99 100 Oxygen Delivery Method Room Air Oxygen Flow Rate 03/05/23 19:36 03/05/23 19:36 03/05/23 20:00 Temperature Pulse Rate 88 Respiratory Rate Blood Pressure 156/97 H 183/113 H Pulse Oximetry 99 Oxygen Delivery Method Oxygen Flow Rate 03/05/23 20:00 03/05/23 20:30 03/05/23 20:31 Temperature Pulse Rate 87 94 H Respiratory Rate Blood Pressure 191/108 H Pulse Oximetry 99 98 Oxygen Delivery Method Room Air Room Air Oxygen Flow Rate 03/05/23 20:31 03/05/23 21:00 03/05/23 21:01 Temperature Pulse Rate 95 H 81 Respiratory Rate Blood Pressure 183/103 H Pulse Oximetry 100 98 Oxygen Delivery Method Room Air Room Air Oxygen Flow Rate 03/05/23 21:01 03/05/23 21:25 03/05/23 22:08 Temperature 98.6 F Pulse Rate 83 97 H Respiratory Rate 16 Blood Pressure 171/81 H Pulse Oximetry 98 98 Oxygen Delivery Method Room Air Room Air Oxygen Flow Rate 0 03/06/23 00:20 Temperature 98.6 F Pulse Rate 67 Respiratory Rate 18 Blood Pressure 162/91 H Pulse Oximetry 95 Oxygen Delivery Method Oxygen Flow Rate 0 Oxygen Delivery Method Room Air Oxygen Flow Rate 0 Const General: cooperative, comfortable and well developed Orientation: alert and oriented x3 HENMT Head: normal to inspection and atraumatic Face and sinus: normal facial exam Mouth: oral mucosae normal and moist mucous membranes Throat: posterior oropharynx normal Eyes General: appearance normal, both eyes and all related structures Pupils: PERRL EOM: EOM intact bilaterally Neck Neck: normal visual inspection and full ROM Chest Chest: normal inspection of the chest Resp Effort & Inspection: normal respiratory effort and able to speak in complete sentences Auscultation: clear to auscultation bilaterally Cardio Palpation: normal PMI Rate: regular rate Rhythm: regular rhythm Heart Sounds: S1 normal and S2 normal GI Inspection: normal to inspection Palpation: soft and no hepatosplenomegaly Auscultation: normal bowel sounds Other: Mild distention, multiple scars, an area of cellulitis extending from an irritation from lower abdominal scar right side of the abdomen 10 x 14 cm without drainage or abscess.? He does have increased left lower quadrant tenderness Skin General: no rashes or lesions noted Neuro General: patient alert, patient awake, patient oriented x3 and no focal motor deficits Cognition: normal cognition Motor: muscle tone normal throughout Sensory Exam: no sensory deficits noted Extrem General: full ROM and no calf tenderness Psych Appearance: grossly normal Mental Status: mental status grossly normal Speech and Movement: speech and movement normal Objective Labs 03/05/23 15:13 03/05/23 21:22 Labs: Laboratory Results - last 24 hr 03/05/23 03/05/23 03/05/23 15:13 15:13 15:16 WBC 12.9 H RBC 5.58 Hgb 16.8 Hct 49.3 MCV 88.3 MCH 30.1 MCHC 34.1 RDW 14.0 Plt Count 315 Neut % (Auto) 72.1 Lymph % (Auto) 18.6 L [place] % (Auto) 8.5 Eos % (Auto) 0.2 L Baso % (Auto) 0.6 Neut # (Auto) 9300 H Lymph # (Auto) 2400 [place] # (Auto) 1100 H Eos # (Auto) 0 Baso # (Auto) 100 Sodium 137 Potassium 4.3 Chloride 103 Carbon Dioxide 24 BUN 14 Creatinine 0.88 Estimated GFR > 60 BUN/Creatinine Ratio 15.9 Glucose 116 H Lactate 1.5 Calcium 9.3 Total Bilirubin 0.8 AST 30 ALT 26 Alkaline Phosphatase 135 H Total Protein 8.2 Albumin 4.8 Globulin 3.4 Albumin/Globulin Ratio 1.4 Lipase 81 Urine RBC Urine WBC Ur Squamous Epith Cells Urine Bacteria Ur Culture Indicated? 03/05/23 03/05/23 15:21 21:22 WBC RBC Hgb Hct MCV MCH MCHC RDW Plt Count Neut % (Auto) Lymph % (Auto) [place] % (Auto) Eos % (Auto) Baso % (Auto) Neut # (Auto) Lymph # (Auto) [place] # (Auto) Eos # (Auto) Baso # (Auto) Sodium 138 Potassium 3.8 Chloride 107 Carbon Dioxide 18 L BUN 11 Creatinine 0.76 Estimated GFR > 60 BUN/Creatinine Ratio 14.5 Glucose 99 Lactate Calcium 8.7 Total Bilirubin AST ALT Alkaline Phosphatase Total Protein Albumin Globulin Albumin/Globulin Ratio Lipase Urine RBC 1-5/hpf Urine WBC 0-1/hpf Ur Squamous Epith Cells 0-1 /hpf Urine Bacteria None seen Ur Culture Indicated? Cult not indicated Assessment & Plan Assessment and plan (1) Abdominal wall cellulitis: Status: Acute Plan: -Antibiotics of Zosyn, -Blood cultures -Pain medications and Tylenol for fever when necessary, -surgery consult (2) Ventral hernia: Qualifiers: Obstruction and gangrene presence: with obstruction but without gangrene Qualified Code(s): K43.6 - Other and unspecified ventral hernia with obstruction, without gangrene Status: Acute Plan: -surgery consult (3) Mixed hyperlipidemia: Status: Acute Plan: -restart Lipitor (4) Essential hypertension: Status: Acute Plan: -restart Diovan (5) Chronic insomnia: Status: Acute Plan: -melatonin when necessary Time Spent With Patient Time with patient: 50 to 69 minutes with 50% spent counseling/coordinating care Quality VTE Deep Vein Thrombosis/Pulmonary Embolism Present on Admission: No MIPS - Admit I confirm the patient?s Advance Care Plan is present, Code status is documented, Surrogate decision maker is in patient?s record [If Yes, STOP here]: Yes MIPS - Meds 'Current medications' to include all prescriptions, [id number] products, herbals, cannabis/cannabidiol products, and vitamin/mineral/dietary (nutritional) supplements. I have utilized all available resources to obtain, update, or review the patient?s current medications. [If Yes, STOP here]: Yes
[2023-03-06] MEDS: DEXTROSE 5%-0.9% NS 1,000 ML 100 ML IV ×2 (08:33→23:11)
--- NOTE | 2023-03-06 12:25 | PC.NURSE ---
Addendum entered by Cristina Lipscomb R.N. 03/06/23 12:41: notified provider regarding patient's high blood pressure. no new orders. pt had a bowel movement after taking contrast. Original Note: provider ordered gastrografin challenge, provider request to take xray in 3hrs instead of 4
--- NOTE | 2023-03-06 12:56 | P.HP_ITS ---
History of Present Illness History of Present Illness Date Patient Seen: 03/06/23 Time Patient Seen: 12:56 Chief complaint: possible hernia strangulation Narrative: 67-year-old gentleman with a history of hypertension and multiple complex abdominal surgerie, abdominal hernias, and partial bowel obstructions presents with increasing abdominal pain and an area of pain and redness extending from the periumbilical area over the right side of his abdomen.? There is an area of irritation in the middle of the scar where his umbilicus would typically be.? This area is new and there is no obvious drainage.? Typically with his recurrent abdominal pain he has been able to manage with clear liquid diet and Tylenol to avoid hospitalization and admission.? He has been getting worse over the last 24 hours with pain which is why he presents the cellulitis aspect is new.? He is never experienced similar complaints.? He denies fevers, chills, chest pain, palpitations, headache, myalgias. Surgery was consulted and have ordered a gastrograffin study with concern for possible enterocutaneous fistula and possible bowel obstruction noted on CT imaging. Redness is improved this morning after antibiotic therapy. [facility] Medical History Acute bacterial sinusitis Allergic rhinitis Cataracts, bilateral Chronic insomnia Essential hypertension Family history of colon cancer in father History of colonic polyps History of GI bleed History of ventral hernia Hypertension Mixed hyperlipidemia Transient ischemic attack (TIA) Surgical History Anesthesia History of cholecystectomy (~1994) History of hernia repair (~2003) Family History Mother Cancer Hypertension History of heart disease Father Colon cancer Myocardial infarction Brother Hypertension Diabetes mellitus Congestive heart failure Brother Diabetes mellitus Hypertension Social History details: Single, retired household members: none lives independently: Yes Smoking Status: Never smoker alcohol intake: current Meds Home Medications and Allergies Home Medications Medication Instructions Recorded Confirmed Type acetaminophen 500 mg capsule 2,000 mg PO BEDTIME PRN Pain, 10/19/20 03/05/23 History Moderate rosuvastatin 10 mg tablet 10 mg PO DAILY #90 tabs 05/10/23 08/01/23 Rx valsartan 160 mg tablet 160 mg PO DAILY #90 tabs 12/12/22 03/05/23 Rx Allergies Allergy/AdvReac Type Severity Reaction Status Date / Time morphine Allergy Unknown Agitated Verified 03/05/23 22:30 amlodipine AdvReac Intermediate constipatio Verified 03/05/23 15:06 n enalapril AdvReac Intermediate Cough Verified 03/05/23 15:06 losartan AdvReac Intermediate Cramping Verified 03/05/23 22:31 of the Muscles Review of Systems Review of Systems Narrative: All other systems reviewed with the patient and are negative unless otherwise stated. Exam Vital Signs (past 8 hours): - 03/06/23 08:00 03/06/23 08:37 03/06/23 12:00 Temperature 98.4 F 98.6 F Pulse Rate 69 80 Respiratory Rate 22 20 Blood Pressure 173/101 H 169/90 H Pulse Oximetry 95 95 Oxygen Delivery Method Room Air Oxygen Flow Rate 0 0 Oxygen Delivery Method Room Air Oxygen Flow Rate 0 Narrative Exam Narrative: General:? Patient is well developed and well nourished, in no distress at this time. HEENT:? Normocephalic, atraumatic, extraocular muscles intact, oral pharynx is clear and mucous membranes are moist. Neck: supple and symmetric, trachea is midline, no cervical adenopathy. Negative for JVD Chest:? Normal AP diameter and contour without kyphoscoliosis, no tachypnea, equal chest rise bilaterally. Lungs:? CTA b/l no wheezing rhonchi or rales. Cardio:?RRR no m/r/g. Abdomen: soft, non-distended. Multiple prior abdominal surgery scars, midline scar with mild erythema, marked improvement from area previously demarcated in the ER. Musculoskeletal:? Muscle strength and tone are equal within normal limits, no deformity. Extremities: No edema or joint effusions. No cyanosis or clubbing. Skin:? Pale,? Warm to touch,dry and intact without rashes, ulcerations or petechiae.? Neuro:? Alert and orientated x3,? sensation to touch intact in all extremities, no gross deficits noted of cranial nerves. Psych:? Patient has a well-kept appearance, appropriate affect, mental status attitude thought context and judgment are appropriate for age. Objective Labs 03/05/23 15:13 03/05/23 21:22 Labs: Laboratory Results - last 24 hr 03/05/23 03/05/23 03/05/23 15:13 15:13 15:16 WBC 12.9 H RBC 5.58 Hgb 16.8 Hct 49.3 MCV 88.3 MCH 30.1 MCHC 34.1 RDW 14.0 Plt Count 315 Neut % (Auto) 72.1 Lymph % (Auto) 18.6 L [place] % (Auto) 8.5 Eos % (Auto) 0.2 L Baso % (Auto) 0.6 Neut # (Auto) 9300 H Lymph # (Auto) 2400 [place] # (Auto) 1100 H Eos # (Auto) 0 Baso # (Auto) 100 Sodium 137 Potassium 4.3 Chloride 103 Carbon Dioxide 24 BUN 14 Creatinine 0.88 Estimated GFR > 60 BUN/Creatinine Ratio 15.9 Glucose 116 H Lactate 1.5 Calcium 9.3 Total Bilirubin 0.8 AST 30 ALT 26 Alkaline Phosphatase 135 H Total Protein 8.2 Albumin 4.8 Globulin 3.4 Albumin/Globulin Ratio 1.4 Lipase 81 Urine RBC Urine WBC Ur Squamous Epith Cells Urine Bacteria Ur Culture Indicated? 03/05/23 03/05/23 15:21 21:22 WBC RBC Hgb Hct MCV MCH MCHC RDW Plt Count Neut % (Auto) Lymph % (Auto) [place] % (Auto) Eos % (Auto) Baso % (Auto) Neut # (Auto) Lymph # (Auto) [place] # (Auto) Eos # (Auto) Baso # (Auto) Sodium 138 Potassium 3.8 Chloride 107 Carbon Dioxide 18 L BUN 11 Creatinine 0.76 Estimated GFR > 60 BUN/Creatinine Ratio 14.5 Glucose 99 Lactate Calcium 8.7 Total Bilirubin AST ALT Alkaline Phosphatase Total Protein Albumin Globulin Albumin/Globulin Ratio Lipase Urine RBC 1-5/hpf Urine WBC 0-1/hpf Ur Squamous Epith Cells 0-1 /hpf Urine Bacteria None seen Ur Culture Indicated? Cult not indicated Assessment & Plan Assessment & Plan narrative: Abdominal wall cellulitis with concern for possible enterocutaneous fistula - follow up gastrograffin challenge - cutaneous findings responding to antibiotics - continue zosyn - appreciate surgery consultation and assistance with management. ? ? ? Ventral hernia with possible obstruction - follow up gastrograffin challenge - having bowel movements with gastrograffin this afternoon so likely not complete obstruction. Mixed hyperlipidemia: - continue home rosuvastatin 10 Essential hypertension: - continue home valsartan 160, likely elevated now in setting of infection / pain. Continue to follow. ? Chronic insomnia: - melatonin prn Code; FULL with surrogate being his daughter's DVT: SCD in case of possible surgery Diet: NPO for now I have utilized all available immediate resources to obtain, update, or review the patient's current medications. Dispo: Admitted as inpatient Additional history obtained via discussion with overnight provider, review of patient's documentation, and discussion with case management staff. I have reviewed patient's current labs, imaging peronsally. Quality VTE Deep Vein Thrombosis/Pulmonary Embolism Present on Admission: No
--- NOTE | 2023-03-06 13:33 | PM.CN ---
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 For the past several months he reports feeling bloated nauseous and at times difficulty emptying his bowels. He is had prior small-bowel obstructions and was hoping that this would resolve with simple measures at home but it has not. Yesterday he developed severe pain around his umbilicus with associated erythema. CT abdomen pelvis demonstrates multiple ventral hernias with a inflammatory response near the umbilicus with an adjacent loop small bowel likely ileum. No wound drainage at this point he has been started on antibiotic therapy and the erythema has slightly decreased but his pain is not improved. His surgical history is significant for an open cholecystectomy 40 years ago. He had a laparoscopic ventral hernia repair performed proximally 15 years ago which was complicated by missed enterotomy and he subsequently underwent numerous abdominal surgeries and multiple ventral hernia repairs. His last surgery was proximally 10 years ago but the details of this are unclear. He knows that at some point his original mesh was removed but he is unsure as to whether he has current mesh in place or not. Imaging demonstrates multiple tacks within the abdominal wall and what appears to be ventral abdominal wall mesh. No major cardiopulmonary disease, he has generally been healthy of late, albumin is 4.8 at admission Meds Home Medications and Allergies Home Medications Medication Instructions Recorded Confirmed Type acetaminophen 500 mg capsule 2,000 mg PO BEDTIME PRN Pain, 10/19/20 03/05/23 History Moderate rosuvastatin 10 mg tablet 10 mg PO DAILY #90 tabs 12/12/22 03/05/23 Rx valsartan 160 mg tablet 160 mg PO DAILY #90 tabs 12/12/22 03/05/23 Rx Allergies Allergy/AdvReac Type Severity Reaction Status Date / Time morphine Allergy Unknown Agitated Verified 03/06/23 14:07 amlodipine AdvReac Intermediate constipatio Verified 03/06/23 14:07 n enalapril AdvReac Intermediate Cough Verified 03/06/23 14:07 losartan AdvReac Intermediate Cramping Verified 03/06/23 14:07 of the Muscles Exam Vital Signs (past 8 hours): - 03/06/23 08:00 03/06/23 08:37 03/06/23 12:00 Temperature 98.4 F 98.6 F Pulse Rate 69 80 Respiratory Rate 22 20 Blood Pressure 173/101 H 169/90 H Pulse Oximetry 95 95 Oxygen Delivery Method Room Air Oxygen Flow Rate 0 0 Oxygen Delivery Method Room Air Oxygen Flow Rate 0 Narrative Exam Narrative: General adult man alert oriented no acute distress Chest nonlabored respiration Abdomen 5 x 5 cm area of erythema around the umbilicus with severe tenderness. No carlos peritonitis. No active drainage. Objective Labs 03/05/23 15:13 03/05/23 21:22 Labs: Laboratory Results - last 24 hr 03/05/23 03/05/23 03/05/23 15:13 15:13 15:16 WBC 12.9 H RBC 5.58 Hgb 16.8 Hct 49.3 MCV 88.3 MCH 30.1 MCHC 34.1 RDW 14.0 Plt Count 315 Neut % (Auto) 72.1 Lymph % (Auto) 18.6 L [place] % (Auto) 8.5 Eos % (Auto) 0.2 L Baso % (Auto) 0.6 Neut # (Auto) 9300 H Lymph # (Auto) 2400 [place] # (Auto) 1100 H Eos # (Auto) 0 Baso # (Auto) 100 Sodium 137 Potassium 4.3 Chloride 103 Carbon Dioxide 24 BUN 14 Creatinine 0.88 Estimated GFR > 60 BUN/Creatinine Ratio 15.9 Glucose 116 H Lactate 1.5 Calcium 9.3 Total Bilirubin 0.8 AST 30 ALT 26 Alkaline Phosphatase 135 H Total Protein 8.2 Albumin 4.8 Globulin 3.4 Albumin/Globulin Ratio 1.4 Lipase 81 Urine RBC Urine WBC Ur Squamous Epith Cells Urine Bacteria Ur Culture Indicated? 03/05/23 03/05/23 15:21 21:22 WBC RBC Hgb Hct MCV MCH MCHC RDW Plt Count Neut % (Auto) Lymph % (Auto) [place] % (Auto) Eos % (Auto) Baso % (Auto) Neut # (Auto) Lymph # (Auto) [place] # (Auto) Eos # (Auto) Baso # (Auto) Sodium 138 Potassium 3.8 Chloride 107 Carbon Dioxide 18 L BUN 11 Creatinine 0.76 Estimated GFR > 60 BUN/Creatinine Ratio 14.5 Glucose 99 Lactate Calcium 8.7 Total Bilirubin AST ALT Alkaline Phosphatase Total Protein Albumin Globulin Albumin/Globulin Ratio Lipase Urine RBC 1-5/hpf Urine WBC 0-1/hpf Ur Squamous Epith Cells 0-1 /hpf Urine Bacteria None seen Ur Culture Indicated? Cult not indicated PFSH Medical History Acute bacterial sinusitis Allergic rhinitis Cataracts, bilateral Chronic insomnia Essential hypertension Family history of colon cancer in father History of colonic polyps History of GI bleed History of ventral hernia Hypertension Mixed hyperlipidemia Transient ischemic attack (TIA) Surgical History Anesthesia History of cholecystectomy (~1994) History of hernia repair (~2003) Family History Mother Cancer Hypertension History of heart disease Father Colon cancer Myocardial infarction Brother Hypertension Diabetes mellitus Congestive heart failure Brother Diabetes mellitus Hypertension Social History details: Single, retired household members: none lives independently: Yes Tobacco & Substance Use Smoking Status: Never smoker alcohol intake: current Assessment & Plan Assessment and plan (1) Abdominal wall cellulitis: Status: Acute Assessment & Plan narrative: 67-year-old man with multiple abdominal surgeries here with a developing enterocutaneous fistula. I reviewed his CT abdomen pelvis personally with the radiologist and near the umbilicus there is the beginnings of a fluid collection and there is an adjacent loop of herniated small bowel. There is no evidence of significant bowel obstruction on CT or on Gastrografin challenge, perhaps partial. There appears to be mesh within the abdominal wall as well. His last abdominal surgery was 10-15 years ago and I suspect that a small portion of his small bowel became incarcerated within the ventral hernia and is now attempting to decompress through an enterocutaneous fistula. He is generally healthy and his nutritional status is quite good at this point. I had a long discussion with the patient his brother and sister present where I discussed these findings. I explained to him that my recommendations to proceed to the operating room for an exploratory laparotomy possible small-bowel resection possible ostomy. I explained to him that these are challenging cases and it can require prolonged hospitalization, long-term medical care and potentially multiple operations. I explained that risks of this surgery include but are not limited to hemorrhage, infection, enterotomy, hernia formation. They expressed their understanding. His questions have been answered and he is in agreement with this plan. Exploratory laparotomy
--- NOTE | 2023-03-06 14:08 | SUR.HOLD ---
Report received from Janina Lipscomb RN. Received pt to holding after xray.
--- NOTE | 2023-03-06 14:57 | CM.DANOTE ---
Initial DCP Assessment Note Pt is a 67 yo male, resident of [place], presents with increasing abd pain, hx of abd surgeries Dr Lawrence has consulted and patient scheduled for ex lap this afternoon for what katie suspects is a a developing enterocutaneous fistula PCP: Benny Figueroa Payer: KEISHA MONZON Reviewed chart, met w/patient to introduce self and role. Patient in good spirits and expresses gratitude for his care. Patient lives alone, indp in all ADLs and has 4 siblings that all live in [place] and are willing to help me out Patient admits it is difficult to accept help but his siblings are there for me if he needs them Patient denies needs from this MINE DEVELOPMENT ENGINEER currently. Suggested this MINE DEVELOPMENT ENGINEER return over the next 24-48 hrs to review DCP and patient agrees. No barriers identified at this time to patient's safe discharge home w/family to assist; close outpatient f/u recommended. CM team planning to follow closely for any DC needs or concerns that may arise SANDRA Stewart Discharge Planning/Care Management Advanced directive, confirm from FAMILY Start: 03/05/23 22:07 Freq: Q24H Status: Active Protocol: Document 03/05/23 22:07 (Rec: 03/05/23 22:20 [id number]) Advance Directive, confirm on record Time 22:00 Person contacted none available Copy received No Copy received No Advanced directive available on record No CM Discharge Assessment Start: 03/06/23 14:51 Freq: Status: Active Protocol: Document 03/06/23 14:51 SHEKHAR (Rec: 03/06/23 14:57 SHEKHAR [id number]) Discharge Planning Assessment Assigned Applications Programmer SANDRA Oliver DPOA/Assigned Designee Name sister Elder Contact Information [phone] Advance Directives? Yes Advance Directives on File No History Provided By Patient,Medical Record Prior Living Arrangements Apartment/Condo Household Members none Type of transporation used prior to Drives own vehicle admit Facility Name Admitted From: [facility] Willing to Return to Facility? Yes Independent with ADL's Yes Is patient alert and oriented? Yes Barriers to Discharge No Comment LIkely home w/the support of his siblings, per patient Discharge Plan Home with Home Health Transportation Arrangement Friend Referrals Initiated None needed
[2023-03-06] MEDS: LACTATED RINGERS 1,000 ML 42 ML IV (15:18)
--- NOTE | 2023-03-06 15:55 | SUR.OPER ---
Supine on padded OR bed, head on pillow, arms secured on padded arm boards at <90 degrees abduction, legs uncrossed, safety belt at thigh, tape over blanket over lower legs.
[2023-03-06] MEDS: BUPIVACAINE 0.25% (PF) VIAL 30 ML INJ (16:15)
--- NOTE | 2023-03-06 17:30 | PM.OP.1 ---
Operative Date/Time/Diagnoses Date of procedure: 03/06/23 Time of procedure: 17:30 Pre-op diagnosis: enterocutaneous fistula Post-op diagnosis: same Procedure & Clinicians Procedure: exploratory laparotomy lysis of adhesions explantation of mesh enterectomy x 2 Same procedure as scheduled: Yes Indications: 59-year-old man with numerous prior abdominal surgeries following a complicated ventral hernia repair with a missed enterotomy. He presented to the hospital today with symptoms of a partial bowel obstruction and development of a abscess on the anterior abdominal wall overlaying a loop herniated small bowel. Surgeon: Elvin Lawrence Underwriting Director: Ezequiel Smith Click Yes if Unassisted: Yes Anesthesia Type: General Operative Notes Findings: Dense intra-abdominal adhesions. Enterocutaneous fistula originating from a loop ileum where it had herniated into the anterior abdominal wall. A 2nd portion of small bowel was densely adherent to the anterior abdominal wall with mesh requiring a 2nd small bowel resection Specimen(s): other (Small-bowel resection, mesh, abdominal wall abscess for culture) Estimated Blood Loss (mL): 100 Procedure in detail: Patient was brought to the operating room placed supine on the table. Bilateral lower extremity compression devices were applied. He received 3.375 g of Zosyn prior to skin incision. General anesthesia was induced he was intubated with an endotracheal tube. Lomeli catheter was sterilely placed. He was then prepped and draped in sterile fashion and a time-out performed. We began with a lower midline incision. Near the umbilicus there was purulent material draining and this was sent for culture. We made an elliptical incision to encompass the suspected enterocutaneous fistula with its associated abscess and the scar tissue. We encountered dense intra-abdominal adhesions in particular to the intra-abdominal mesh and its associated tacks. A lysis of adhesions was performed with sharp dissection. A loop of distal ileum was found incarcerated within a midline ventral hernia where it was adherent to the abdominal wall and forming a fistula. This was taken down with the accompanying skin and soft tissue. We performed an enterectomy to release the fistulized portion of small bowel. Window within the mesentery on either side was created and then the bowel was divided with a MIHIR stapler blue load 75 mm. We performed a [id number] functional end to end anastomosis. An enterotomy was made in either limb 3rd staple load was fired creating a common channel. We inspected the anastomosis and it was widely patent and hemostatic it was not under tension. The common opening was then closed with a running 3-0 PDS suture and then the suture line was imbricated with interrupted silk suture. The anastomosis was tested there was no evidence of leak and it was well perfused. We examined the mesh which had been involved in the fistula and it was a very large piece. We removed as much of the mesh as feasible. On the left side of the lower abdomen there was a second loop of small bowel that was adherent to the mesh. In seperating the mesh from the small bowel an enterotomy occurred which was repaired with a second small bowel resection of a short segment about 8 cm. Again a window was made in the mesentery and then bowel was divided in the same fashion using the MIHIR stapler blue load. A [id number] anastomosis was then formed using a 3rd firing of the stapler the anastomosis was inspected it was hemostatic and widely patent and then the common channel was closed with a 3-0 PDS followed by imbricating silk suture. Anastomosis was tested and it was patent and well perfused. At this point we decided to remove no further mesh given the risk of causing damage. The abdomen was irrigated with several L of saline and lavaged returned clear. Hemostasis was checked and the small bowel was examined as much as feasible although its entire length could not be run secondary to adhesive disease. There was no other evidence of serosal tear enterotomy. The fascia was closed with 1. PDS suture. Quality of the fascia was fairly attenuated. The subcutaneous space was irrigated and then reapproximated using 3-0 Vicryl and the skin closed with judson. He tolerated the operation well was extubated and transferred to recovery room in stable condition. Total of 30 mL of 0.25% bupivacaine was used for local anesthesia. Complications: none Post-operative Condition: stable Disposition: Acute Care
[2023-03-06] MEDS: ACETAMINOPHEN 325 MG TABLET 975 MG PO (20:31)
[2023-03-07] VITALS (7 sets, daily range): BP systolic 106–153; BP diastolic 65–95; PULSE 85–99; RESP 18–20; TEMP 36.1–37.1; O2SAT 93–97
[2023-03-07] MEDS: PIPERACILLIN/TAZO 3.375 GM in SODIUM CHLORIDE 0.9% 100 ML IV ×3 (02:00→16:32)
[2023-03-07] MEDS: HYDROMORPHONE 0.5 MG INJ IV ×4 (02:01→20:14)
[2023-03-07] MEDS: ACETAMINOPHEN 325 MG TABLET 650 MG PO (06:10)
[2023-03-07] MEDS: DEXTROSE 5%-0.9% NS 1,000 ML 100 ML IV ×2 (10:44→20:13)
--- NOTE | 2023-03-07 12:16 | PC.NURSE ---
Addendum entered by Tiffany Marte R.N. 03/07/23 16:39: Pt resting at intervals Had a walk in the hallway w/o incidence. IVF continue as per orders. Call light w/in reach, pt calls appropriately for needs. Continue w/plan of care Original Note: Pt A/O, ABdominal binder intact. Sitting in chair, Med @ 1045 w/ IVP Dilaudid as per orders for 7/10 px IVF infusing via pump into the RAC w/o incidence. Call light w/in reach, pt calls appropriately for needs. COntinue w/plan of care
--- NOTE | 2023-03-07 14:05 | P.PN_ITS ---
Subjective Subjective Interval history: 67 M now POD #1 s/p bowel resection for enterocutaneous fistula. Doing well, tolerating small amounts of clears today. Occasional abdominal pain but appropriate after surgery. No gas or bowel movements. No fever, chills. He feels better today than yesterday prior to surgery. Exam Vital Signs (past 8 hours): - 03/07/23 07:45 03/07/23 11:00 03/07/23 11:30 Temperature 98.4 F 98.3 F Pulse Rate 98 H 85 Respiratory Rate 18 Blood Pressure 107/72 106/65 Pulse Oximetry 95 95 Oxygen Flow Rate 0 0 Oxygen Delivery Method Room Air Oxygen Flow Rate 0 Narrative Exam Narrative: General:? Patient is well developed and well nourished, in no distress at this time. HEENT:? Normocephalic, atraumatic, extraocular muscles intact, oral pharynx is clear and mucous membranes are moist. Neck: supple and symmetric, trachea is midline, no cervical adenopathy. Negative for JVD Chest:? Normal AP diameter and contour without kyphoscoliosis, no tachypnea, equal chest rise bilaterally. Lungs:? CTA b/l no wheezing rhonchi or rales. Cardio:?RRR no m/r/g. Abdomen: in abdominal binder in the chair, no epigastric distension, soft. Musculoskeletal:? Muscle strength and tone are equal within normal limits, no deformity. Extremities: No edema or joint effusions. No cyanosis or clubbing. Skin:? Pale,? Warm to touch,dry and intact without rashes, ulcerations or petechiae.? Neuro:? Alert and orientated x3,? sensation to touch intact in all extremities, no gross deficits noted of cranial nerves. Psych:? Patient has a well-kept appearance, appropriate affect, mental status attitude thought context and judgment are appropriate for age. Objective Labs 03/05/23 15:13 03/05/23 21:22 [facility] Medical History Acute bacterial sinusitis Allergic rhinitis Cataracts, bilateral Chronic insomnia Essential hypertension Family history of colon cancer in father History of colonic polyps History of GI bleed History of ventral hernia Hypertension Mixed hyperlipidemia Transient ischemic attack (TIA) Surgical History Anesthesia History of cholecystectomy (~1994) History of hernia repair (~2003) Family History Mother Cancer Hypertension History of heart disease Father Colon cancer Myocardial infarction Brother Hypertension Diabetes mellitus Congestive heart failure Brother Diabetes mellitus Hypertension Social History details: Single, retired household members: none lives independently: Yes Smoking Status: Never smoker alcohol intake: current Assessment & Plan Assessment & Plan narrative: 1. Abdominal wall cellulitis secondary to enterocutaneous fistula secondary to #2 - now POD #1 s/p small bowel resection and mesh removal. - appreciate general surgery consultation - diet per surgery - prn pain control - consider antibiotic cessation in the next 1-2 days ? ? ? 2. Ventral hernia with possible obstruction - see above, now s/p mesh removal. Mixed hyperlipidemia: - continue home rosuvastatin 10 Essential hypertension: - continue home valsartan 160, likely elevated now in setting of infection / pain. Continue to follow. ? Chronic insomnia: - melatonin prn Code; FULL with surrogate being his daughter's DVT: SCD, lovenox to start tomorrow. Diet: clears, advance per surgical service I have utilized all available immediate resources to obtain, update, or review the patient's current medications. Dispo: Admitted as inpatient, probably home in a few days time depending on bowel activity after resection. Quality VTE Deep Vein Thrombosis/Pulmonary Embolism Present on Admission: No
--- NOTE | 2023-03-07 17:12 | PM.PNPO.1 ---
Subjective Subjective Date Patient Seen: 03/07/23 Time Patient Seen: 17:12 Interval history: Postoperative day 1 status post exploratory laparotomy with enterectomy x2 for a enterocutaneous fistula. Overall feeling well today. Pain has been fairly well controlled he has been ambulatory Lomeli catheter has been removed and he is urinating normally. No return of bowel function yet. He is tolerating sips clears. Exam Vital Signs (past 8 hours): - 03/07/23 11:00 03/07/23 11:30 03/07/23 15:00 Temperature 98.3 F Pulse Rate 85 Respiratory Rate 18 Blood Pressure 106/65 Pulse Oximetry 95 96 Oxygen Flow Rate 0 Oxygen Delivery Method Room Air Oxygen Flow Rate 0 Narrative Exam Narrative: General adult man alert oriented no acute distress Abdomen soft appropriately tender to palpation. Objective Labs 03/05/23 15:13 03/05/23 21:22 PFSH Medical History Acute bacterial sinusitis Allergic rhinitis Cataracts, bilateral Chronic insomnia Essential hypertension Family history of colon cancer in father History of colonic polyps History of GI bleed History of ventral hernia Hypertension Mixed hyperlipidemia Transient ischemic attack (TIA) Surgical History Anesthesia History of cholecystectomy (~1994) History of hernia repair (~2003) Family History Mother Cancer Hypertension History of heart disease Father Colon cancer Myocardial infarction Brother Hypertension Diabetes mellitus Congestive heart failure Brother Diabetes mellitus Hypertension Social History details: Single, retired household members: none lives independently: Yes Smoking Status: Never smoker alcohol intake: current Assessment & Plan Post-op Postoperative Procedures: Procedures Operation Date: 03/06/23 15:45 Actual Procedure Side Surgeon p Exploratory Laparotomy GEN Elvin Lawrence MD Postoperative status narrative: 67-year-old man postoperative day 1 status post exploratory laparotomy and enterectomy x2 for an enterocutaneous fistula. Overall he is appropriate for purpose operative day 1. I anticipate he will have a prolonged postoperative ileus. Okay to continue clears but wait to advance diet until he clearly has return of bowel function. -discontinue IV fluids -out of bed ambulate -PT eval -SCDs and prophylactic Lovenox -continue clears Quality VTE Deep Vein Thrombosis/Pulmonary Embolism Present on Admission: No
[2023-03-07] MEDS: VALSARTAN 80 MG TABLET 160 MG PO (20:15)
[2023-03-07] MEDS: ATORVASTATIN 20 MG TABLET PO (20:16)
--- NOTE | 2023-03-07 20:45 | PC.NURSE ---
Abdominal sugical site noted to be saturated with serosanguineous drainage on assessment. Dr. Morgan contacted. ABD dressings applied. WCTM.
[2023-03-08] MEDS: PIPERACILLIN/TAZO 3.375 GM in SODIUM CHLORIDE 0.9% 100 ML IV ×3 (01:58→17:08)
[2023-03-08] MEDS: DEXTROSE 5%-0.9% NS 1,000 ML 100 ML IV ×2 (06:08→17:08)
[2023-03-08 07:38] LABS: Add Manual Diff / Slide Review NO; Basophils Absolute Auto 100 /uL (0-100); Basophils Percent Auto 0.6 % (0-2); Eosinophils Absolute Auto 0 /uL (0-450); Hematocrit 35.5 % (41-53); Hemoglobin 11.8 g/dL (13.5-17.5); Lymphocytes Absolute Auto 3400 /uL (1100-4500); Lymphocytes Percent Auto 19.4 % (25-40); Mean Corpuscular HGB Conc 33.3 % (30-36); Mean Corpuscular Hemoglobin 30.1 PG (26-34); Mean Corpuscular Volume 90.3 fL (80-100); Monocytes Absolute Auto 1600 /uL (0-900); Monocytes Percent Auto 9.1 % (3-14); Neutrophils Absolute Auto 12200 /uL (1500-7000); Neutrophils Percent Auto 70.9 % (50-75); Platelet Count 270 X10^3/uL (150-400); Red Blood Cell Count 3.93 X10^6/uL (4.5-5.9); White Blood Cell Count 17.3 X10^3/uL (4.5-11.0)
[2023-03-08 07:49] LABS: Alanine Aminotransferase 23 IU/L (<50); Albumin 3.6 g/dL (3.5-5.0); Albumin Globulin Ratio 1.3 (1.0-2.8); Alkaline Phosphatase 66 U/L (38-126); Aspartate Aminotransferase 20 IU/L (17-59); BUN Creatinine Ratio 18.8 (6-22); Bilirubin Total 0.9 mg/dL (0.2-1.3); Blood Urea Nitrogen 21 mg/dL (9-20); Calcium 8.3 mg/dL (8.4-10.2); Carbon Dioxide 24 mmol/L (22-32); Chloride 112 mmol/L (98-107); Estimated Glomerular Filt Rate > 60 mL/min (>60); Globulin 2.7 g/dL (1.7-4.1); Glucose 157 mg/dL (80-110); HEMOLYSIS < 15 (0-50); Magnesium 2.1 mg/dL (1.6-2.3); Potassium 4.2 mmol/L (3.4-5.1); Sodium 142 mmol/L (137-145); Total Protein 6.3 g/dL (6.3-8.2)
--- NOTE | 2023-03-08 08:53 | PT-IP ANOTE ---
Attempted to see patient for PT evaluation, RN reports pt currently on bed rest due to excessive bleeding from surgical incision. Will need check again at a later time.
[2023-03-08 09:10] VITALS: BP 176/93; PULSE 91; RESP 18; TEMP 36.7; O2SAT 96
[2023-03-08] MEDS: ONDANSETRON 4 MG/2 ML INJ IV (09:21)
[2023-03-08] MEDS: CALCIUM CARBONATE 500 MG TAB PO (09:25)
[2023-03-08] MEDS: OXYCODONE IR 10 MG TABLET PO ×4 (09:25→22:43)
--- NOTE | 2023-03-08 10:20 | PT-IP ANOTE ---
Spoke about pt in rounds and pt with possible bleed, may go back to surgery and MD recommends hold therapies today. Will hold PT 03/08/23.
[2023-03-08 13:00] VITALS: BP 171/91; PULSE 96; RESP 17; TEMP 36.7; O2SAT 95
--- NOTE | 2023-03-08 13:15 | P.PN_ITS ---
Subjective Subjective Interval history: 67 M now POD #2 s/p bowel resection for enterocutaneous fistula. Last night noted to have increase bleeding from abdominal incision. Also this AM was noted to have dark guaiac + stool but unclear if this was true melena. WBC inc today. Exam Vital Signs (past 8 hours): - 03/08/23 09:10 03/08/23 13:00 Temperature 98.0 F 98.1 F Pulse Rate 91 H 96 H Respiratory Rate 18 17 Blood Pressure 176/93 H 171/91 H Pulse Oximetry 96 95 Oxygen Flow Rate 0 0 Oxygen Delivery Method Room Air Oxygen Flow Rate 0 Narrative Exam Narrative: Gen: alert, NAD Lungs: clear Abd: distended Ext: no edema Objective Labs 03/08/23 07:30 03/08/23 07:30 Labs: Laboratory Results - last 24 hr 03/08/23 03/08/23 07:30 07:30 WBC 17.3 H RBC 3.93 L Hgb 11.8 L Hct 35.5 L MCV 90.3 MCH 30.1 MCHC 33.3 RDW 14.0 Plt Count 270 Neut % (Auto) 70.9 Lymph % (Auto) 19.4 L [place] % (Auto) 9.1 Eos % (Auto) 0.0 L Baso % (Auto) 0.6 Neut # (Auto) 55074 H Lymph # (Auto) 3400 [place] # (Auto) 1600 H Eos # (Auto) 0 Baso # (Auto) 100 Sodium 142 Potassium 4.2 Chloride 112 H Carbon Dioxide 24 BUN 21 H Creatinine 1.12 Estimated GFR > 60 BUN/Creatinine Ratio 18.8 Glucose 157 H Calcium 8.3 L Magnesium 2.1 Total Bilirubin 0.9 AST 20 ALT 23 Alkaline Phosphatase 66 D Total Protein 6.3 Albumin 3.6 Globulin 2.7 Albumin/Globulin Ratio 1.3 PFSH Medical History Acute bacterial sinusitis Allergic rhinitis Cataracts, bilateral Chronic insomnia Essential hypertension Family history of colon cancer in father History of colonic polyps History of GI bleed History of ventral hernia Hypertension Mixed hyperlipidemia Transient ischemic attack (TIA) Surgical History Anesthesia History of cholecystectomy (~1994) History of hernia repair (~2003) Family History Mother Cancer Hypertension History of heart disease Father Colon cancer Myocardial infarction Brother Hypertension Diabetes mellitus Congestive heart failure Brother Diabetes mellitus Hypertension Social History details: Single, retired household members: none lives independently: Yes Smoking Status: Never smoker alcohol intake: current Assessment & Plan Assessment & Plan narrative: 1. 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 ?- diet per surgery ?- prn pain control ?- cont Zosyn until d/c by surg ? ? ? 2. Ventral hernia with possible obstruction ?- see above, now s/p mesh removal. 3. Mixed hyperlipidemia: ?- continue home rosuvastatin 10 4. Essential hypertension: ?- continue home valsartan 160, BP likely elevated now in setting of infection / pain. Continue to follow. ? 5. Chronic insomnia: ?- melatonin prn Quality VTE Deep Vein Thrombosis/Pulmonary Embolism Present on Admission: No
--- NOTE | 2023-03-08 13:32 | P.PN_ITS ---
Subjective Subjective Interval history: 67 yo male with HTN, HL admitted with acute CHF and afib. He has remote h/o afib in the when he was consuming massive amounts of coffee. Exam Vital Signs (past 8 hours): - 03/08/23 09:10 03/08/23 13:00 Temperature 98.0 F 98.1 F Pulse Rate 91 H 96 H Respiratory Rate 18 17 Blood Pressure 176/93 H 171/91 H Pulse Oximetry 96 95 Oxygen Flow Rate 0 0 Oxygen Delivery Method Room Air Oxygen Flow Rate 0 Objective Labs 03/08/23 07:30 03/08/23 07:30 Labs: Laboratory Results - last 24 hr 03/08/23 03/08/23 07:30 07:30 WBC 17.3 H RBC 3.93 L Hgb 11.8 L Hct 35.5 L MCV 90.3 MCH 30.1 MCHC 33.3 RDW 14.0 Plt Count 270 Neut % (Auto) 70.9 Lymph % (Auto) 19.4 L [place] % (Auto) 9.1 Eos % (Auto) 0.0 L Baso % (Auto) 0.6 Neut # (Auto) 75689 H Lymph # (Auto) 3400 [place] # (Auto) 1600 H Eos # (Auto) 0 Baso # (Auto) 100 Sodium 142 Potassium 4.2 Chloride 112 H Carbon Dioxide 24 BUN 21 H Creatinine 1.12 Estimated GFR > 60 BUN/Creatinine Ratio 18.8 Glucose 157 H Calcium 8.3 L Magnesium 2.1 Total Bilirubin 0.9 AST 20 ALT 23 Alkaline Phosphatase 66 D Total Protein 6.3 Albumin 3.6 Globulin 2.7 Albumin/Globulin Ratio 1.3 PFSH Medical History Acute bacterial sinusitis Allergic rhinitis Cataracts, bilateral Chronic insomnia Essential hypertension Family history of colon cancer in father History of colonic polyps History of GI bleed History of ventral hernia Hypertension Mixed hyperlipidemia Transient ischemic attack (TIA) Surgical History Anesthesia History of cholecystectomy (~1994) History of hernia repair (~2003) Family History Mother Cancer Hypertension History of heart disease Father Colon cancer Myocardial infarction Brother Hypertension Diabetes mellitus Congestive heart failure Brother Diabetes mellitus Hypertension Social History details: Single, retired household members: none lives independently: Yes Smoking Status: Never smoker alcohol intake: current Quality VTE Deep Vein Thrombosis/Pulmonary Embolism Present on Admission: No
--- NOTE | 2023-03-08 16:22 | PM.PNPO.1 ---
Subjective Subjective Date Patient Seen: 03/08/23 Time Patient Seen: 16:22 Interval history: Midline wound drainage overnight. Lower abdominal pain. Melanotic stool. Tolerating small sips but feels bloated Exam Vital Signs (past 8 hours): - 03/08/23 09:10 03/08/23 13:00 Temperature 98.0 F 98.1 F Pulse Rate 91 H 96 H Respiratory Rate 18 17 Blood Pressure 176/93 H 171/91 H Pulse Oximetry 96 95 Oxygen Flow Rate 0 0 Oxygen Delivery Method Room Air Oxygen Flow Rate 0 Narrative Exam Narrative: General adult male alert oriented no acute distress Abdomen soft appropriately tender to palpation. Midline incision intact. Serosanguineous fluid expressed from midline less than 2 tbsp Objective Labs 03/08/23 07:30 03/08/23 07:30 Labs: Laboratory Results - last 24 hr 03/08/23 03/08/23 07:30 07:30 WBC 17.3 H RBC 3.93 L Hgb 11.8 L Hct 35.5 L MCV 90.3 MCH 30.1 MCHC 33.3 RDW 14.0 Plt Count 270 Neut % (Auto) 70.9 Lymph % (Auto) 19.4 L [place] % (Auto) 9.1 Eos % (Auto) 0.0 L Baso % (Auto) 0.6 Neut # (Auto) 37465 H Lymph # (Auto) 3400 [place] # (Auto) 1600 H Eos # (Auto) 0 Baso # (Auto) 100 Sodium 142 Potassium 4.2 Chloride 112 H Carbon Dioxide 24 BUN 21 H Creatinine 1.12 Estimated GFR > 60 BUN/Creatinine Ratio 18.8 Glucose 157 H Calcium 8.3 L Magnesium 2.1 Total Bilirubin 0.9 AST 20 ALT 23 Alkaline Phosphatase 66 D Total Protein 6.3 Albumin 3.6 Globulin 2.7 Albumin/Globulin Ratio 1.3 PFSH Medical History Acute bacterial sinusitis Allergic rhinitis Cataracts, bilateral Chronic insomnia Essential hypertension Family history of colon cancer in father History of colonic polyps History of GI bleed History of ventral hernia Hypertension Mixed hyperlipidemia Transient ischemic attack (TIA) Surgical History Anesthesia History of cholecystectomy (~1994) History of hernia repair (~2003) Family History Mother Cancer Hypertension History of heart disease Father Colon cancer Myocardial infarction Brother Hypertension Diabetes mellitus Congestive heart failure Brother Diabetes mellitus Hypertension Social History details: Single, retired household members: none lives independently: Yes Smoking Status: Never smoker alcohol intake: current Assessment & Plan Post-op Postoperative Procedures: Procedures Operation Date: 03/06/23 15:45 Actual Procedure Side Surgeon p Exploratory Laparotomy GEN Elvin Lawrence MD Postoperative status narrative: 67-year-old man postoperative day 2 status post exploratory laparotomy 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 As expected he has a postoperative ileus which I anticipate may be prolonged. -clear liquid diet but if increasing abdominal distention and nausea NPO -continue Zosyn for a total of 5 days intra-abdominal infection -ambulate as tolerated, physical therapy. -okay to shower -SCDs and prophylactic Lovenox. Quality VTE Deep Vein Thrombosis/Pulmonary Embolism Present on Admission: No
[2023-03-08 16:30] VITALS: BP 174/93; PULSE 90; RESP 16; TEMP 36.7; O2SAT 96
[2023-03-08 19:55] VITALS: BP 149/85; PULSE 86; RESP 16; TEMP 36.8; O2SAT 98
[2023-03-08] MEDS: VALSARTAN 80 MG TABLET 160 MG PO (20:13)
[2023-03-08] MEDS: ATORVASTATIN 20 MG TABLET PO (20:13)
[2023-03-08] MEDS: PANTOPRAZOLE DR 40 MG TABLET PO (20:13)
[2023-03-09] VITALS (7 sets, daily range): BP systolic 136–153; BP diastolic 70–90; PULSE 82–92; RESP 18; TEMP 36.6–37.4; O2SAT 93–96
[2023-03-09] MEDS: PIPERACILLIN/TAZO 3.375 GM in SODIUM CHLORIDE 0.9% 100 ML IV ×3 (01:26→17:43)
[2023-03-09] MEDS: DEXTROSE 5%-0.9% NS 1,000 ML 100 ML IV ×2 (01:31→12:06)
[2023-03-09 06:14] LABS: Add Manual Diff / Slide Review NO; Basophils Absolute Auto 100 /uL (0-100); Basophils Percent Auto 0.4 % (0-2); Eosinophils Absolute Auto 0 /uL (0-450); Eosinophils Percent Auto 0.3 % (2-4); Hematocrit 30.3 % (41-53); Hemoglobin 10.4 g/dL (13.5-17.5); Lymphocytes Absolute Auto 3100 /uL (1100-4500); Lymphocytes Percent Auto 24.1 % (25-40); Mean Corpuscular HGB Conc 34.1 % (30-36); Mean Corpuscular Hemoglobin 30.5 PG (26-34); Mean Corpuscular Volume 89.5 fL (80-100); Monocytes Absolute Auto 1100 /uL (0-900); Monocytes Percent Auto 8.8 % (3-14); Neutrophils Absolute Auto 8400 /uL (1500-7000); Neutrophils Percent Auto 66.4 % (50-75); Platelet Count 208 X10^3/uL (150-400); Red Blood Cell Count 3.39 X10^6/uL (4.5-5.9); Red Cell Distribution Width 13.8 % (11.6-14.8); White Blood Cell Count 12.7 X10^3/uL (4.5-11.0)
[2023-03-09 06:19] LABS: Alanine Aminotransferase 20 IU/L (<50); Albumin 3.1 g/dL (3.5-5.0); Albumin Globulin Ratio 1.2 (1.0-2.8); Alkaline Phosphatase 47 U/L (38-126); Aspartate Aminotransferase 24 IU/L (17-59); BUN Creatinine Ratio 21.5 (6-22); Blood Urea Nitrogen 17 mg/dL (9-20); Carbon Dioxide 24 mmol/L (22-32); Chloride 111 mmol/L (98-107); Estimated Glomerular Filt Rate > 60 mL/min (>60); Globulin 2.6 g/dL (1.7-4.1); Glucose 131 mg/dL (80-110); HEMOLYSIS 36 (0-50); Magnesium 2.1 mg/dL (1.6-2.3); Potassium 3.6 mmol/L (3.4-5.1); Sodium 139 mmol/L (137-145); Total Protein 5.7 g/dL (6.3-8.2)
[2023-03-09] MEDS: PANTOPRAZOLE DR 40 MG TABLET PO (06:46)
[2023-03-09] MEDS: OXYCODONE IR 10 MG TABLET PO (08:50)
--- NOTE | 2023-03-09 11:14 | PT.IIE ---
Current Diagnoses Mixed hyperlipidemia (03/05/23) Psychophysiologic insomnia (03/05/23) Essential (primary) hypertension (03/05/23) Other and unspecified ventral hernia with obstruction, without gangrene (03/05/23) Cellulitis of abdominal wall (03/05/23) Surgery Performed Operation Date: 03/06/23 15:45 Actual Procedures p Exploratory Laparotomy - Elvin Lawrence MD Surgical History (Last Reviewed 03/06/23 @ 13:40 by Elvin Lawrence MD) Anesthesia History of cholecystectomy (~1994) History of hernia repair (~2003) Medical History (Last Reviewed 03/06/23 @ 13:40 by Elvin Lawrence MD) Acute bacterial sinusitis Allergic rhinitis Cataracts, bilateral Chronic insomnia Essential hypertension Family history of colon cancer in father History of colonic polyps History of GI bleed History of ventral hernia Hypertension Mixed hyperlipidemia Transient ischemic attack (TIA) Physical Therapy Inpatient Evaluation/Re-Eval M1 PT/OT-IP Prior Functional Status Start: 03/09/23 13:54 Freq: NEEDED Status: Active Protocol: Document 03/09/23 11:14 AB (Rec: 03/09/23 14:06 AB [email or web address]) Medical Review Prior Functional Status Medical History Reviewed Yes Communication able t make needs known Mobility and Gait pt stated that he is independent with all mobilities and ambulation without AD; stated that he was very active and walks ~ 2miles daily and goes to the gym Social History Household Members none Living Arrangements Apartment/Condo Number of Floors (Floors) One Floor Number of Stairs To Enter/Railing? pt lives on a senior housing/ apartment no steps to enter Home Environment High Toilet,Walk in Shower Home Equipment Hand Held Shower,Grab Bars In Shower Additional Social History Comment pt has siblings that may be able to assist him if needed M2 PT-IP Current Condition Start: 03/09/23 13:54 Freq: NEEDED Status: Active Protocol: Document 03/09/23 11:14 AB (Rec: 03/09/23 14:06 AB [email or web address]) Physical Therapy Current Condition Current Condition Evaluation Date 03/09/23 Treatment Diagnosis s/p small bowel resection; difficulty in walking Onset Date 03/05/23 M3 PT-IP Subjective Start: 03/09/23 13:54 Freq: NEEDED Status: Active Protocol: Document 03/09/23 11:14 AB (Rec: 03/09/23 14:06 AB [email or web address]) Subjective Physical Therapy Visit Type Type Initial Evaluation Visit Start Time 11:14 Visit Stop Time 11:44 Total Visit Minutes 30 Number of [employer] Visits 0 Physical Therapy Visit Comments Patient Comments agreeble to do PT Therapy Pain Assessment Pain When Pain Assessed At Rest Pain Present Pain Present Pain Reported Location low abdominal Intensity 7 Pain Management Techniques Modification of Treatment,Re- positioning,Timing of Activity with Medications M4 PT-IP Mobility and Gait Start: 03/09/23 13:54 Freq: NEEDED Status: Active Protocol: Document 03/09/23 11:14 AB (Rec: 03/09/23 14:06 AB [id number]) PT-Bed Mobility Assessment Rolling Type of Rolling Log Rolling Level of Assist Standby Assistance Supine to Sit Supine to Sit Standby Assistance Sit to Supine Sit to Supine Standby Assistance PT-Transfer Assessment Sit to and From Stand Sit to and from Stand Standby Assistance Equipment Transfer Assistive Device None,Gait Belt Orthotic/Prosthetic Devices or Brace: Yes Transfer Ability Level of Assist Standby Assistance Comments Mobility Comments pt supine in bed. sister in room. pt with abdominal binder on. educated pt regarding abdominal precautions and log roll bed mobility. pt completed supine to sit log roll with max cues . sit to stand SBA and ambulated in room without AD SBA and agreed to ambulate in the hallway and completed ~ 225ft SBA. pt without LOB. pt ambulated back to the room and sat on EOB. bed mobility training conducted: pt completed log roll sit<>supine and able to perform SBA without needing cues. pt requested to stay in bed. positioned in bed. call light and table placed within reach. informed pt regarding no further PT intervention needed at this time and pt agreed. Cleared pt to be independent in his room but agreed to inform nursing when he has to walk in the hallway for safety . informed nurse. Gait Assessment Gait Gait Assistance Required: Standby Assistance Distance (Feet) 225 Able to Maintain Weight Bearing Status Yes During Gait Assistive Devices Assistive Device None,Gait Belt Orthotic/Prosthetic Devices or Brace: Yes Factors Limiting Gait Function Factors Limiting Gait Function Decreased Activity Tolerance, Decreased Strength PT-Balance Assessment Sitting Balance and Reactions Static Sitting Balance Ability Normal Dynamic Sitting Balance Ability Normal Standing Balance and Reactions Static Standing Balance Ability Good Dynamic Standing Balance Ability Good Device Used without AD M5 PT-IP Objective Assessments Start: 03/09/23 13:54 Freq: NEEDED Status: Active Protocol: Document 03/09/23 11:14 AB (Rec: 03/09/23 14:06 AB [id number]) Orientation Orientation/Cognition Level of Alertness Alert Orientation Name,Age,Birthday,Date Language Function Ability No Deficits Noted Safety Awareness Understands Safety Issues Memory Description No Deficits Noted Gross Range of Motion Lower Extremity ROM Assessment Within Functional Limits Strength Lower Extremity Strength Assessment Within Functional Limits Coordination Assessment Gross Coordination Gross Coordination WNL Sensation Assessment Sensation Gross Sensation WNL Muscle Tone Muscle Tone WNL Yes M6 PT-IP Treatment Start: 03/09/23 13:54 Freq: NEEDED Status: Active Protocol: Document 03/09/23 11:14 AB (Rec: 03/09/23 14:06 AB [id number]) Physical Therapy Treatment Education Education Provided Precautions,Weight Bearing Status,Post-Op Packet,Safety M7 PT-IP Assessment and Plan Start: 03/09/23 13:54 Freq: NEEDED Status: Active Protocol: Document 03/09/23 11:14 AB (Rec: 03/09/23 14:06 AB [email or web address]) PT Summary Assessment and Plan Potential Rehabilitation Potential Good Status of Condition at Evaluation Stable Summary Impairments Gait,Activity Tolerance Progress Towards Goals Safe For Discharge Assessment Summary Pt admitted for abdominal wall cellulitis but also has SBO and underwent surgery yesterday for ex-lap, lysis of adhessions and small bowel resection POD 3. pt is cleared to be independent in his room and able to ambulate without AD. For safety, will need supervision for long distance ambulation. No further PT intervention indicated at this time. Pt may go home when medically stable. Frequency of Treatment Frequency Of Treatment Discharge Precautions Abdominal Surgery Precautions Log Roll,Lifting Restrictions, Gait Belt above Incisional Area Recommendations To Nursing Amount of Assist Needed Standby Assistance Discharge Recommendations PT Discharge Recommendations Home Transportation Needs at Discharge Private Vehicle
[2023-03-09] MEDS: OXYCODONE IR 5 MG TABLET PO ×2 (14:59→20:57)
--- NOTE | 2023-03-09 15:06 | P.PN_ITS ---
Subjective Subjective Date Patient Seen: 03/09/23 Time Patient Seen: 12:00 Interval history: Doing well denying nausea he has had a couple episodes of nausea which have subsided. He is not passing flatus. He says his pain is better than yesterday and also he feels like he is less distended. Overall he feels like he is better today than yesterday. He has been walking around in the room, not yet in the rosario because last time he did that there was some bleeding from his wound and he was afraid to do it again. Exam Vital Signs (past 8 hours): - 03/09/23 08:00 03/09/23 12:00 Temperature 97.9 F 98.7 F Pulse Rate 86 82 Respiratory Rate 18 18 Blood Pressure 153/90 H 136/79 Pulse Oximetry 93 94 Oxygen Flow Rate 0 0 Oxygen Delivery Method Room Air Oxygen Flow Rate 0 Narrative Exam Narrative: He is awake alert oriented in no acute distress he is healthy appearing comfortable and pleasant The wound is clean dry and intact with judson in place there are some ecchymoses at the bottom of the abdomen which are stable and within normal limits. The abdomen is distended and tympanitic but soft and appropriately tender. Objective Labs 03/09/23 05:15 03/09/23 05:15 Labs: Laboratory Results - last 24 hr 03/09/23 03/09/23 05:15 05:15 WBC 12.7 H RBC 3.39 L Hgb 10.4 L Hct 30.3 L MCV 89.5 MCH 30.5 MCHC 34.1 RDW 13.8 Plt Count 208 Neut % (Auto) 66.4 Lymph % (Auto) 24.1 L Walker % (Auto) 8.8 Eos % (Auto) 0.3 L Baso % (Auto) 0.4 Neut # (Auto) 8400 H Lymph # (Auto) 3100 [place] # (Auto) 1100 H Eos # (Auto) 0 Baso # (Auto) 100 Sodium 139 Potassium 3.6 Chloride 111 H Carbon Dioxide 24 BUN 17 Creatinine 0.79 Estimated GFR > 60 BUN/Creatinine Ratio 21.5 Glucose 131 H Calcium 8.0 L Magnesium 2.1 Total Bilirubin 1.0 AST 24 ALT 20 Alkaline Phosphatase 47 Total Protein 5.7 L Albumin 3.1 L Globulin 2.6 Albumin/Globulin Ratio 1.2 [facility] Medical History Acute bacterial sinusitis Allergic rhinitis Cataracts, bilateral Chronic insomnia Essential hypertension Family history of colon cancer in father History of colonic polyps History of GI bleed History of ventral hernia Hypertension Mixed hyperlipidemia Transient ischemic attack (TIA) Surgical History Anesthesia History of cholecystectomy (~1994) History of hernia repair (~2003) Family History Mother Cancer Hypertension History of heart disease Father Colon cancer Myocardial infarction Brother Hypertension Diabetes mellitus Congestive heart failure Brother Diabetes mellitus Hypertension Social History details: Single, retired household members: none lives independently: Yes Smoking Status: Never smoker alcohol intake: current Assessment & Plan Post-op Postoperative Procedures: Procedures Operation Date: 03/06/23 15:45 Actual Procedure Side Surgeon p Exploratory Laparotomy GEN Elvin Lawrence MD Postoperative day: 3 Postoperative status: post-op ileus Postoperative status narrative: 67-year-old man postoperative day3 status post exploratory laparotomy 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 has a postoperative ileus- anticipate may be prolonged - seems improved overall today. -continue clear liquid diet but if increasing abdominal distention and nausea NPO. Will stop IVFs and monitor. -continue Zosyn for a total of 5 days intra-abdominal infection -ambulate as tolerated, physical therapy--> cleared for independent ambulation. Ambulate in halls and to chair TId -okay to shower. leave wound open to air. -SCDs and prophylactic Lovenox. Postoperative plan: see orders and ambulate Time Spent With Patient Time with patient: 15-24 minutes Quality VTE Deep Vein Thrombosis/Pulmonary Embolism Present on Admission: No
--- NOTE | 2023-03-09 15:28 | P.PN_ITS ---
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 Pt is tolerating sips of water. Not passing flatus but has bowel sounds. States pain is improved and is not having nausea. Exam Vital Signs (past 8 hours): - 03/09/23 08:00 03/09/23 12:00 Temperature 97.9 F 98.7 F Pulse Rate 86 82 Respiratory Rate 18 18 Blood Pressure 153/90 H 136/79 Pulse Oximetry 93 94 Oxygen Flow Rate 0 0 Oxygen Delivery Method Room Air Oxygen Flow Rate 0 Narrative Exam Narrative: Gen: alert, pleasant, NAD Lungs: clear Abd: distended, BS present, incision intact w/o sig drainage Ext: no edema Objective Labs 03/09/23 05:15 03/09/23 05:15 Labs: Laboratory Results - last 24 hr 03/09/23 03/09/23 05:15 05:15 WBC 12.7 H RBC 3.39 L Hgb 10.4 L Hct 30.3 L MCV 89.5 MCH 30.5 MCHC 34.1 RDW 13.8 Plt Count 208 Neut % (Auto) 66.4 Lymph % (Auto) 24.1 L [place] % (Auto) 8.8 Eos % (Auto) 0.3 L Baso % (Auto) 0.4 Neut # (Auto) 8400 H Lymph # (Auto) 3100 [place] # (Auto) 1100 H Eos # (Auto) 0 Baso # (Auto) 100 Sodium 139 Potassium 3.6 Chloride 111 H Carbon Dioxide 24 BUN 17 Creatinine 0.79 Estimated GFR > 60 BUN/Creatinine Ratio 21.5 Glucose 131 H Calcium 8.0 L Magnesium 2.1 Total Bilirubin 1.0 AST 24 ALT 20 Alkaline Phosphatase 47 Total Protein 5.7 L Albumin 3.1 L Globulin 2.6 Albumin/Globulin Ratio 1.2 PFSH Medical History Acute bacterial sinusitis Allergic rhinitis Cataracts, bilateral Chronic insomnia Essential hypertension Family history of colon cancer in father History of colonic polyps History of GI bleed History of ventral hernia Hypertension Mixed hyperlipidemia Transient ischemic attack (TIA) Surgical History Anesthesia History of cholecystectomy (~1994) History of hernia repair (~2003) Family History Mother Cancer Hypertension History of heart disease Father Colon cancer Myocardial infarction Brother Hypertension Diabetes mellitus Congestive heart failure Brother Diabetes mellitus Hypertension Social History details: Single, retired household members: none lives independently: Yes Smoking Status: Never smoker alcohol intake: current Assessment & Plan Assessment & Plan narrative: 1. 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 ?- on clear liquids ?- prn pain control ?- cont Zosyn x 5 days total, thru 03/10/23 - enc ambulation ? ? ? 2. Ventral hernia with partial bowel obstruction ?- s/p ex lap with mesh removal 3. Mixed hyperlipidemia: ?- continue home rosuvastatin 10 4. Essential hypertension, improved control ?- continue home valsartan 160 ? 5. Chronic insomnia: ?- melatonin prn Quality VTE Deep Vein Thrombosis/Pulmonary Embolism Present on Admission: No
[2023-03-09] MEDS: ACETAMINOPHEN 325 MG TABLET 650 MG PO (17:42)
[2023-03-09] MEDS: VALSARTAN 80 MG TABLET 160 MG PO (20:57)
[2023-03-09] MEDS: ATORVASTATIN 20 MG TABLET PO (20:58)
[2023-03-10 00:39] VITALS: BP 136/77; PULSE 83; RESP 16; TEMP 37.1; O2SAT 96
[2023-03-10] MEDS: OXYCODONE IR 5 MG TABLET PO ×2 (01:10→06:11)
[2023-03-10] MEDS: PIPERACILLIN/TAZO 3.375 GM in SODIUM CHLORIDE 0.9% 100 ML IV ×3 (01:11→16:22)
[2023-03-10 06:05] VITALS: BP 147/81; PULSE 82; RESP 18; TEMP 37.2; O2SAT 99
[2023-03-10 06:20] LABS: Add Manual Diff / Slide Review NO; Basophils Absolute Auto 0 /uL (0-100); Basophils Percent Auto 0.3 % (0-2); Eosinophils Absolute Auto 100 /uL (0-450); Eosinophils Percent Auto 1.2 % (2-4); Hematocrit 29.7 % (41-53); Hemoglobin 10.2 g/dL (13.5-17.5); Lymphocytes Absolute Auto 2500 /uL (1100-4500); Lymphocytes Percent Auto 22.2 % (25-40); Mean Corpuscular HGB Conc 34.4 % (30-36); Mean Corpuscular Hemoglobin 30.6 PG (26-34); Mean Corpuscular Volume 88.9 fL (80-100); Monocytes Absolute Auto 1000 /uL (0-900); Monocytes Percent Auto 9.3 % (3-14); Neutrophils Absolute Auto 7500 /uL (1500-7000); Platelet Count 220 X10^3/uL (150-400); Red Blood Cell Count 3.34 X10^6/uL (4.5-5.9); Red Cell Distribution Width 13.3 % (11.6-14.8); White Blood Cell Count 11.1 X10^3/uL (4.5-11.0)
[2023-03-10 06:32] LABS: Alanine Aminotransferase 28 IU/L (<50); Albumin 3.3 g/dL (3.5-5.0); Albumin Globulin Ratio 1.3 (1.0-2.8); Alkaline Phosphatase 67 U/L (38-126); Aspartate Aminotransferase 32 IU/L (17-59); BUN Creatinine Ratio 18.8 (6-22); Bilirubin Total 2.4 mg/dL (0.2-1.3); Blood Urea Nitrogen 15 mg/dL (9-20); Calcium 8.2 mg/dL (8.4-10.2); Carbon Dioxide 24 mmol/L (22-32); Chloride 106 mmol/L (98-107); Estimated Glomerular Filt Rate > 60 mL/min (>60); Globulin 2.6 g/dL (1.7-4.1); Glucose 89 mg/dL (80-110); HEMOLYSIS < 15 (0-50); Potassium 3.2 mmol/L (3.4-5.1); Sodium 136 mmol/L (137-145); Total Protein 5.9 g/dL (6.3-8.2)
--- NOTE | 2023-03-10 07:30 | PM.PN.1 ---
Subjective Subjective Date Patient Seen: 03/10/23 Interval history: He is seen today to follow-up his colovesical/enterocutaneous fistula on post op day 4. He is on Zosyn for a total of 5 days. His potassium is low at 3.2, down from 3.6 so he will be given oral potassium. His total bilirubin is 2.4. The white blood count has dropped from 17, down to 12, now down to 11.1. The hgb is stable at 10.2. The blood pressure is 147/81. He is in a good mood. Exam Vital Signs (past 8 hours): - 03/10/23 00:39 03/10/23 06:05 Temperature 98.7 F 99.0 F Pulse Rate 83 82 Respiratory Rate 16 18 Blood Pressure 136/77 147/81 H Pulse Oximetry 96 99 Oxygen Flow Rate 0 0 Oxygen Delivery Method Room Air Oxygen Flow Rate 0 Narrative Exam Narrative: He is alert and oriented x3. No apparent distress. His abdomen is very distended which he says is actually improved. The judson and the incision are quite tight. Heart is regular rate and rhythm with 2/6 harsh systolic blowing murmur. Lungs are clear to auscultation bilaterally Extremities have no ankle edema There is a few drops of blood at bottom of the abdominal incision site. Objective Labs 03/10/23 06:10 03/10/23 06:10 Labs: Laboratory Results - last 24 hr 03/10/23 03/10/23 06:10 06:10 WBC 11.1 H RBC 3.34 L Hgb 10.2 L Hct 29.7 L MCV 88.9 MCH 30.6 MCHC 34.4 RDW 13.3 Plt Count 220 Neut % (Auto) 67.0 Lymph % (Auto) 22.2 L [place] % (Auto) 9.3 Eos % (Auto) 1.2 L Baso % (Auto) 0.3 Neut # (Auto) 7500 H Lymph # (Auto) 2500 [place] # (Auto) 1000 H Eos # (Auto) 100 Baso # (Auto) 0 Sodium 136 L Potassium 3.2 L Chloride 106 Carbon Dioxide 24 BUN 15 Creatinine 0.80 Estimated GFR > 60 BUN/Creatinine Ratio 18.8 Glucose 89 Calcium 8.2 L Magnesium 2.0 Total Bilirubin 2.4 H AST 32 ALT 28 Alkaline Phosphatase 67 Total Protein 5.9 L Albumin 3.3 L Globulin 2.6 Albumin/Globulin Ratio 1.3 PFSH Medical History Acute bacterial sinusitis Allergic rhinitis Cataracts, bilateral Chronic insomnia Essential hypertension Family history of colon cancer in father History of colonic polyps History of GI bleed History of ventral hernia Hypertension Mixed hyperlipidemia Transient ischemic attack (TIA) Surgical History Anesthesia History of cholecystectomy (~1994) History of hernia repair (~2003) Family History Mother Cancer Hypertension History of heart disease Father Colon cancer Myocardial infarction Brother Hypertension Diabetes mellitus Congestive heart failure Brother Diabetes mellitus Hypertension Social History details: Single, retired household members: none lives independently: Yes Smoking Status: Never smoker alcohol intake: current Assessment & Plan Assessment & Plan narrative: 1. 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 ?- on clear liquids ?- prn pain control ?- Completed Zosyn x 5 days total, thru 03/11/23 ?- enc ambulation ? ? ? 2. Ventral hernia with partial bowel obstruction ?- s/p ex lap with mesh removal 3. Mixed hyperlipidemia: ?- continue home rosuvastatin 10 4. Essential hypertension, improved control ?- continue home valsartan 160 ? 5. Chronic insomnia: ?- melatonin prn 6. Hypokalemia -Unclear etiology, perhaps from decreased intake -Kcl 20 meq BID for 3-4 doses and follow BMP Quality VTE Deep Vein Thrombosis/Pulmonary Embolism Present on Admission: No
[2023-03-10 07:43] VITALS: BP 162/78; PULSE 98; RESP 18; TEMP 37.3; O2SAT 98
[2023-03-10] MEDS: OXYCODONE IR 10 MG TABLET PO ×2 (08:17→21:31)
[2023-03-10] MEDS: POTASSIUM CHLORIDE 20 MEQ TAB PO ×2 (08:17→16:22)
[2023-03-10 11:00] VITALS: BP 156/85; PULSE 81; RESP 18; TEMP 37.2; O2SAT 96
--- NOTE | 2023-03-10 12:04 | PM.PNPO.1 ---
Subjective Subjective Date Patient Seen: 03/10/23 Time Patient Seen: 12:04 Interval history: Mr. Will states that overall he is feeling better today than yesterday. His pain is under good control. He had some bowel function and a little incontinence with diarrhea. The bedside nurse relates that the stool was guaiac positive and a little dark colored. He is drinking clear liquids though he is still feeling pretty distended and was worried that he is not able to drink enough to stay hydrated since he noticed that the IV fluids were stopped yesterday. He denies nausea however. He is urinating a copious amount and his urine is a light color. He has been ambulating in the halls. He states he is passing gas as well. Exam Vital Signs (past 8 hours): - 03/10/23 06:05 03/10/23 07:43 03/10/23 11:00 Temperature 99.0 F 99.1 F 98.9 F Pulse Rate 82 98 H 81 Respiratory Rate 18 18 18 Blood Pressure 147/81 H 162/78 H 156/85 H Pulse Oximetry 99 98 96 Oxygen Flow Rate 0 0 Oxygen Delivery Method Room Air Oxygen Flow Rate 0 Narrative Exam Narrative: He is awake alert oriented in no acute distress pleasant and appropriate His abdomen is still markedly distended. Perhaps even more so than yesterday but nontender and still soft. The wound is clean dry and intact. There are ecchymoses around the inferior portion of the wound and lower abdomen that are stable and within normal limits Objective Labs 03/10/23 06:10 03/10/23 06:10 Labs: Laboratory Results - last 24 hr 03/10/23 03/10/23 06:10 06:10 WBC 11.1 H RBC 3.34 L Hgb 10.2 L Hct 29.7 L MCV 88.9 MCH 30.6 MCHC 34.4 RDW 13.3 Plt Count 220 Neut % (Auto) 67.0 Lymph % (Auto) 22.2 L [place] % (Auto) 9.3 Eos % (Auto) 1.2 L Baso % (Auto) 0.3 Neut # (Auto) 7500 H Lymph # (Auto) 2500 [place] # (Auto) 1000 H Eos # (Auto) 100 Baso # (Auto) 0 Sodium 136 L Potassium 3.2 L Chloride 106 Carbon Dioxide 24 BUN 15 Creatinine 0.80 Estimated GFR > 60 BUN/Creatinine Ratio 18.8 Glucose 89 Calcium 8.2 L Magnesium 2.0 Total Bilirubin 2.4 H AST 32 ALT 28 Alkaline Phosphatase 67 Total Protein 5.9 L Albumin 3.3 L Globulin 2.6 Albumin/Globulin Ratio 1.3 [facility] Medical History Acute bacterial sinusitis Allergic rhinitis Cataracts, bilateral Chronic insomnia Essential hypertension Family history of colon cancer in father History of colonic polyps History of GI bleed History of ventral hernia Hypertension Mixed hyperlipidemia Transient ischemic attack (TIA) Surgical History Anesthesia History of cholecystectomy (~1994) History of hernia repair (~2003) Family History Mother Cancer Hypertension History of heart disease Father Colon cancer Myocardial infarction Brother Hypertension Diabetes mellitus Congestive heart failure Brother Diabetes mellitus Hypertension Social History details: Single, retired household members: none lives independently: Yes Smoking Status: Never smoker alcohol intake: current Assessment & Plan Post-op Postoperative Procedures: Procedures Operation Date: 03/06/23 15:45 Actual Procedure Side Surgeon p Exploratory Laparotomy GEN Elvin Lawrence MD Postoperative day: 4 Postoperative status: post-op ileus Postoperative status narrative: On exam his abdomen remains markedly distended and I would not advance his diet at this time. I think that he could be a little overloaded and I would hold off on starting IV fluids until a decrease in urine output was noted. I encouraged him to drink sips of clears as tolerated but not worry about forcing anything since we are monitoring his fluid status. He still has a significant postoperative ileus however this was an expected outcome and he is ambulating in the halls and passing some flatus even an overall feeling better so I am encouraged that he is continuing to make positive progress. I would continue DVT prophylaxis and IV antibiotics per Dr. Lawrence's original recommendations. Postoperative plan: ambulate and advance diet (Do not advance diet) Time Spent With Patient Time with patient: 15-24 minutes Quality VTE Deep Vein Thrombosis/Pulmonary Embolism Present on Admission: No
[2023-03-10 12:43] LABS: Bilirubin Direct 1.3 mg/dL (0.0-0.4)
[2023-03-10 15:00] VITALS: BP 165/81; PULSE 87; RESP 17; TEMP 37.1; O2SAT 100
[2023-03-10] MEDS: ATORVASTATIN 20 MG TABLET PO (20:31)
[2023-03-10] MEDS: VALSARTAN 80 MG TABLET 160 MG PO (20:31)
[2023-03-10 20:36] VITALS: BP 150/77; PULSE 83; RESP 18; TEMP 37.4; O2SAT 97
[2023-03-11] VITALS (8 sets, daily range): BP systolic 145–164; BP diastolic 80–86; PULSE 75–90; RESP 16–18; TEMP 36.9–37.6; O2SAT 95–99
[2023-03-11 06:10] LABS: Blood Urea Nitrogen 13 mg/dL (9-20); Calcium 8.3 mg/dL (8.4-10.2); Carbon Dioxide 21 mmol/L (22-32); Chloride 103 mmol/L (98-107); Estimated Glomerular Filt Rate > 60 mL/min (>60); Glucose 89 mg/dL (80-110); HEMOLYSIS < 15 (0-50); Potassium 3.2 mmol/L (3.4-5.1); Sodium 133 mmol/L (137-145)
[2023-03-11] MEDS: OXYCODONE IR 5 MG TABLET PO ×2 (08:16→17:15)
[2023-03-11] MEDS: ACETAMINOPHEN 325 MG TABLET 650 MG PO (08:16)
[2023-03-11] MEDS: POTASSIUM CHLORIDE 20 MEQ TAB PO ×2 (08:17→17:15)
--- NOTE | 2023-03-11 12:25 | PM.PN.1 ---
Subjective Subjective Date Patient Seen: 03/11/23 Interval history: Feeling better today. Ambulating in the halls. Tolerated clear liquid diet. Passing some liquid bowel movement. Exam Vital Signs (past 8 hours): - 03/11/23 05:02 03/11/23 08:15 03/11/23 08:16 Temperature 99.6 F 99 F 99.0 F Pulse Rate 79 89 Respiratory Rate 18 16 Blood Pressure 149/80 H 145/80 H Pulse Oximetry 95 96 Oxygen Flow Rate 0 0 03/11/23 09:30 Temperature 98.4 F Pulse Rate Respiratory Rate Blood Pressure Pulse Oximetry Oxygen Flow Rate Oxygen Delivery Method Room Air Oxygen Flow Rate 0 Narrative Exam Narrative: Abdomen soft Incision is clean dry and intact Objective Labs 03/10/23 06:10 03/11/23 05:20 Labs: Laboratory Results - last 24 hr 03/10/23 03/11/23 06:10 05:20 Sodium 133 L Potassium 3.2 L Chloride 103 Carbon Dioxide 21 L BUN 13 Creatinine 0.65 L Estimated GFR > 60 BUN/Creatinine Ratio 20.0 Glucose 89 Calcium 8.3 L Direct Bilirubin 1.3 H PFSH Medical History Acute bacterial sinusitis Allergic rhinitis Cataracts, bilateral Chronic insomnia Essential hypertension Family history of colon cancer in father History of colonic polyps History of GI bleed History of ventral hernia Hypertension Mixed hyperlipidemia Transient ischemic attack (TIA) Surgical History Anesthesia History of cholecystectomy (~1994) History of hernia repair (~2003) Family History Mother Cancer Hypertension History of heart disease Father Colon cancer Myocardial infarction Brother Hypertension Diabetes mellitus Congestive heart failure Brother Diabetes mellitus Hypertension Social History details: Single, retired household members: none lives independently: Yes Smoking Status: Never smoker alcohol intake: current Assessment & Plan Assessment and plan (1) Postoperative examination: Status: Acute Plan Doing well following surgery. He is progressing. Advance to regular diet today. Quality VTE Deep Vein Thrombosis/Pulmonary Embolism Present on Admission: No
--- NOTE | 2023-03-11 13:16 | P.PN_ITS ---
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 He is on Zosyn for a total of 5 days. He is doing well, has some liquid bowel movements, minimal nausea and wants to try more than liquids. Has been ordered for regular diet by surgeons today. Exam Vital Signs (past 8 hours): - 03/11/23 08:15 03/11/23 08:16 03/11/23 09:30 Temperature 99 F 99.0 F 98.4 F Pulse Rate 89 Respiratory Rate 16 Blood Pressure 145/80 H Pulse Oximetry 96 Oxygen Flow Rate 0 03/11/23 12:00 Temperature 98.4 F Pulse Rate 75 Respiratory Rate 16 Blood Pressure 160/83 H Pulse Oximetry 98 Oxygen Flow Rate 0 Oxygen Delivery Method Room Air Oxygen Flow Rate 0 Narrative Exam Narrative: He is alert and oriented x3. No apparent distress. His abdomen is soft, but mildly distended. Heart is regular rate and rhythm with no m/r/g. Lungs are clear to auscultation bilaterally Extremities have no ankle edema. Objective Labs 03/10/23 06:10 03/11/23 05:20 Labs: Laboratory Results - last 24 hr 03/11/23 05:20 Sodium 133 L Potassium 3.2 L Chloride 103 Carbon Dioxide 21 L BUN 13 Creatinine 0.65 L Estimated GFR > 60 BUN/Creatinine Ratio 20.0 Glucose 89 Calcium 8.3 L [facility] Medical History Acute bacterial sinusitis Allergic rhinitis Cataracts, bilateral Chronic insomnia Essential hypertension Family history of colon cancer in father History of colonic polyps History of GI bleed History of ventral hernia Hypertension Mixed hyperlipidemia Transient ischemic attack (TIA) Surgical History Anesthesia History of cholecystectomy (~1994) History of hernia repair (~2003) Family History Mother Cancer Hypertension History of heart disease Father Colon cancer Myocardial infarction Brother Hypertension Diabetes mellitus Congestive heart failure Brother Diabetes mellitus Hypertension Social History details: Single, retired household members: none lives independently: Yes Smoking Status: Never smoker alcohol intake: current Assessment & Plan Assessment & Plan narrative: 1. 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 ?- now advanced to general diet ?- prn pain control ?- Completed Zosyn x 5 days total, thru 03/11/23 ?- enc ambulation ? ? ? 2. Ventral hernia with partial bowel obstruction ?- s/p ex lap with mesh removal 3. Mixed hyperlipidemia: ?- continue home rosuvastatin 10 4. Essential hypertension, improved control ?- continue home valsartan 160 ? 5. Chronic insomnia: ?- melatonin prn 6. Hypokalemia -Unclear etiology, perhaps from decreased intake -Kcl 20 meq BID for 3-4 doses and follow BMP Dispo: Home likely when ready per surgical service. Advanced to regular diet today. Quality VTE Deep Vein Thrombosis/Pulmonary Embolism Present on Admission: No
--- NOTE | 2023-03-11 14:41 | CM.DPC ---
DCP Cont: Per Surgeon, pt having some liquid stool and tolerating liquid diet and will advance to general diet today to see how pt tolerates. Per PT, recommending safe d/c home via POV and pt has been ambulating the hallways independently. Per MD, pt may likely be ready for d/c by tomorrow if tolerating diet. Plan: SW to follow closely to confirm pt tolerating advancing diet today and plan is home with sibling support and outpt f/u. SANDRA Don
[2023-03-11] MEDS: ATORVASTATIN 20 MG TABLET PO (20:58)
[2023-03-11] MEDS: VALSARTAN 80 MG TABLET 160 MG PO (20:58)
[2023-03-11] MEDS: OXYCODONE IR 10 MG TABLET PO (21:03)
[2023-03-12] MEDS: OXYCODONE IR 10 MG TABLET PO (01:01)
[2023-03-12 01:08] VITALS: PULSE 121; RESP 18; TEMP 38.7
[2023-03-12] MEDS: ONDANSETRON 4 MG/2 ML INJ IV ×3 (01:11→09:35)
[2023-03-12] MEDS: HYDROMORPHONE 0.5 MG INJ IV ×5 (01:19→19:24)
--- NOTE | 2023-03-12 01:22 | PC.NURSE ---
pt was given 10mg of oxycodone and vomited 75 ml of light green emesis. pt given ondansetron ivp and dilaudid ivp.
[2023-03-12 01:32] VITALS: BP 157/79; PULSE 93; RESP 18; TEMP 36.7; O2SAT 94
[2023-03-12] MEDS: LACTATED RINGERS 1,000 ML 100 ML IV ×2 (03:56→13:57)
--- NOTE | 2023-03-12 04:03 | PC.NURSE ---
Contacted Dr. Morgan this am around 0335 due to pt having 2 emesis episodes tonight. Per Arun Morgan pt is now NPO and started on LR at 10 ml. May insert an NGT if patient keeps having frequent emesis. Pt awared of new orders.
[2023-03-12 08:00] VITALS: BP 177/97; PULSE 102; RESP 16; TEMP 37.1; O2SAT 97
--- NOTE | 2023-03-12 08:11 | DI.RAD.S_ITS ---
PROCEDURE: XR ABDOMEN 1V INDICATIONS: ileus? TECHNIQUE: One view of the abdomen acquired. COMPARISON: [facility], CT, CT ABDOMEN PELVIS W CON, 03/05/2023, 16:23. FINDINGS: Mildly dilated gas-filled loops of small bowel are present. Scattered air-fluid levels also demonstrated. Gas is present in the colon to at least the level of the hepatic flexure, possibly the distal colon. Abdominal wall hernia repair markers and skin judson are present. No definite or substantial pneumoperitoneum identified. IMPRESSION: Small-bowel dilation and scattered air-fluid levels are present, consistent with ileus in the appropriate clinical setting however mechanical small bowel obstruction cannot be excluded. Dictated by: Sharan Elliott M.D. on 03/12/2023 at 9:11 Approved by: Sharan Elliott M.D. on 03/12/2023 at 9:12
[2023-03-12] MEDS: ENOXAPARIN 40 MG/0.4 ML SYRINGE SUBCUT (09:35)
--- NOTE | 2023-03-12 11:58 | PM.PN.1 ---
Subjective Subjective Interval history: Developed nausea and vomiting, distension and pain overnight. Xray with probable ileus. feeling a bit better later this morning when seen but pretty miserable overall. He is better when up and walking, took a couple of laps earlier. Exam Vital Signs (past 8 hours): - 03/12/23 08:00 03/12/23 07:30 Temperature 98.8 F Pulse Rate 102 H Respiratory Rate 16 Blood Pressure 177/97 H Pulse Oximetry 97 Oxygen Delivery Method Room Air Oxygen Flow Rate 0 Oxygen Delivery Method Room Air Oxygen Flow Rate 0 Narrative Exam Narrative: He is alert and oriented x3. No apparent distress. His abdomen is soft, a bit more distended, tender over incisions. Heart is regular rate and rhythm with no m/r/g. Lungs are clear to auscultation bilaterally Extremities have no ankle edema. Objective Labs 03/10/23 06:10 03/11/23 05:20 [facility] Medical History Acute bacterial sinusitis Allergic rhinitis Cataracts, bilateral Chronic insomnia Essential hypertension Family history of colon cancer in father History of colonic polyps History of GI bleed History of ventral hernia Hypertension Mixed hyperlipidemia Transient ischemic attack (TIA) Surgical History Anesthesia History of cholecystectomy (~1994) History of hernia repair (~2003) Family History Mother Cancer Hypertension History of heart disease Father Colon cancer Myocardial infarction Brother Hypertension Diabetes mellitus Congestive heart failure Brother Diabetes mellitus Hypertension Social History details: Single, retired household members: none lives independently: Yes Smoking Status: Never smoker alcohol intake: current Assessment & Plan Assessment & Plan narrative: 1. 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 ?- now complicated by ileus on 03/12 ?- prn pain control ?- Completed Zosyn x 5 days total, thru 03/11/23 ?- enc ambulation ? ? ? 2. Ventral hernia with partial bowel obstruction ?- s/p ex lap with mesh removal 3. Mixed hyperlipidemia: ?- continue home rosuvastatin 10 4. Essential hypertension, improved control ?- continue home valsartan 160 ? 5. Chronic insomnia: ?- melatonin prn 6. Hypokalemia -Unclear etiology, perhaps from decreased intake -Kcl 20 meq BID for 3-4 doses and follow BMP Dispo: Home likely when ready per surgical service. Now with ileus maybe in a couple of days again assuming no further issues. Code: Full Quality VTE Deep Vein Thrombosis/Pulmonary Embolism Present on Admission: No
[2023-03-12 12:41] LABS: Blood Urea Nitrogen 18 mg/dL (9-20); Calcium 8.3 mg/dL (8.4-10.2); Carbon Dioxide 25 mmol/L (22-32); Chloride 100 mmol/L (98-107); Estimated Glomerular Filt Rate > 60 mL/min (>60); Glucose 117 mg/dL (80-110); HEMOLYSIS < 15 (0-50); Magnesium 2.1 mg/dL (1.6-2.3); Potassium 3.8 mmol/L (3.4-5.1); Sodium 134 mmol/L (137-145)
--- NOTE | 2023-03-12 13:15 | PM.PNPO.1 ---
Subjective Subjective Date Patient Seen: 03/12/23 Time Patient Seen: 13:15 Interval history: Several bouts of emesis overnight. Feels distended and burping. Passing flatus stool. Exam Vital Signs (past 8 hours): - 03/12/23 08:00 03/12/23 07:30 Temperature 98.8 F Pulse Rate 102 H Respiratory Rate 16 Blood Pressure 177/97 H Pulse Oximetry 97 Oxygen Delivery Method Room Air Oxygen Flow Rate 0 Oxygen Delivery Method Room Air Oxygen Flow Rate 0 Narrative Exam Narrative: General adult man alert oriented. Abdomen distended appropriately tender to palpation. Objective Labs 03/10/23 06:10 03/12/23 12:18 Labs: Laboratory Results - last 24 hr 03/12/23 12:18 Sodium 134 L Potassium 3.8 Chloride 100 Carbon Dioxide 25 BUN 18 Creatinine 0.72 Estimated GFR > 60 BUN/Creatinine Ratio 25.0 H Glucose 117 H Calcium 8.3 L Magnesium 2.1 PFSH Medical History Acute bacterial sinusitis Allergic rhinitis Cataracts, bilateral Chronic insomnia Essential hypertension Family history of colon cancer in father History of colonic polyps History of GI bleed History of ventral hernia Hypertension Mixed hyperlipidemia Transient ischemic attack (TIA) Surgical History Anesthesia History of cholecystectomy (~1994) History of hernia repair (~2003) Family History Mother Cancer Hypertension History of heart disease Father Colon cancer Myocardial infarction Brother Hypertension Diabetes mellitus Congestive heart failure Brother Diabetes mellitus Hypertension Social History details: Single, retired household members: none lives independently: Yes Smoking Status: Never smoker alcohol intake: current Assessment & Plan Post-op Postoperative Procedures: Procedures Operation Date: 03/06/23 15:45 Actual Procedure Side Surgeon p Exploratory Laparotomy GEN Elvin Lawrence MD Postoperative status narrative: 67-year-old man postoperative day 6 status post exploratory laparotomy with small-bowel resection x2 with a postoperative ileus. Abdominal x-rays reviewed demonstrates ileus. Await return of bowel function. -scheduled Reglan -okay for sips of clears -continue IV fluids -ambulate Quality VTE Deep Vein Thrombosis/Pulmonary Embolism Present on Admission: No
[2023-03-12 13:22] VITALS: BP 156/93; PULSE 96; RESP 16; TEMP 37.1; O2SAT 95
[2023-03-12] MEDS: METOCLOPRAMIDE 10 MG/2 ML INJ 5 MG IV ×2 (13:55→18:02)
[2023-03-12 16:00] VITALS: BP 114/71; PULSE 60; RESP 16; TEMP 37.4; O2SAT 97
[2023-03-12 20:35] VITALS: BP 150/91; PULSE 94; RESP 18; TEMP 37.3; O2SAT 94
[2023-03-13] MEDS: METOCLOPRAMIDE 10 MG/2 ML INJ IV ×4 (00:05→17:34)
[2023-03-13] MEDS: LACTATED RINGERS 1,000 ML 100 ML IV ×2 (00:59→11:38)
[2023-03-13 01:26] VITALS: BP 168/83; PULSE 100; RESP 18; TEMP 37.2; O2SAT 93
[2023-03-13 05:00] VITALS: BP 160/83; PULSE 100; RESP 18; TEMP 36.9; O2SAT 95
[2023-03-13] MEDS: OXYCODONE IR 5 MG TABLET PO ×3 (05:56→17:46)
[2023-03-13 06:59] LABS: Add Manual Diff / Slide Review NO; Basophils Absolute Auto 0 /uL (0-100); Basophils Percent Auto 0.2 % (0-2); Eosinophils Absolute Auto 0 /uL (0-450); Eosinophils Percent Auto 0.2 % (2-4); Hematocrit 30.8 % (41-53); Hemoglobin 10.7 g/dL (13.5-17.5); Lymphocytes Absolute Auto 1500 /uL (1100-4500); Mean Corpuscular HGB Conc 34.7 % (30-36); Mean Corpuscular Hemoglobin 30.4 PG (26-34); Mean Corpuscular Volume 87.4 fL (80-100); Monocytes Absolute Auto 1300 /uL (0-900); Monocytes Percent Auto 18.6 % (3-14); Neutrophils Absolute Auto 4300 /uL (1500-7000); Platelet Count 317 X10^3/uL (150-400); Red Blood Cell Count 3.53 X10^6/uL (4.5-5.9); Red Cell Distribution Width 13.6 % (11.6-14.8); White Blood Cell Count 7.1 X10^3/uL (4.5-11.0)
[2023-03-13 07:10] LABS: BUN Creatinine Ratio 32.3 (6-22); Blood Urea Nitrogen 21 mg/dL (9-20); Carbon Dioxide 25 mmol/L (22-32); Chloride 103 mmol/L (98-107); Estimated Glomerular Filt Rate > 60 mL/min (>60); Glucose 114 mg/dL (80-110); HEMOLYSIS < 15 (0-50); Magnesium 2.2 mg/dL (1.6-2.3); Potassium 3.4 mmol/L (3.4-5.1); Sodium 136 mmol/L (137-145)
--- NOTE | 2023-03-13 08:00 | PM.PNPO.1 ---
Subjective Subjective Date Patient Seen: 03/13/23 Time Patient Seen: 08:00 Interval history: Feels significantly improved. ++Flatus, and BM. Hungry. Exam Vital Signs (past 8 hours): - 03/13/23 01:26 03/13/23 05:00 Temperature 99.0 F 98.5 F Pulse Rate 100 H 100 H Respiratory Rate 18 18 Blood Pressure 168/83 H 160/83 H Pulse Oximetry 93 95 Oxygen Flow Rate 0 0 Oxygen Delivery Method Room Air Oxygen Flow Rate 0 Narrative Exam Narrative: Gen-Adult man alert and oriented Abdomen-Soft, compressible, less distended then yesterday Objective Labs 03/13/23 06:30 03/13/23 06:30 Labs: Laboratory Results - last 24 hr 03/12/23 03/13/23 03/13/23 12:18 06:30 06:30 WBC 7.1 RBC 3.53 L Hgb 10.7 L Hct 30.8 L MCV 87.4 MCH 30.4 MCHC 34.7 RDW 13.6 Plt Count 317 Neut % (Auto) 60.0 Lymph % (Auto) 21.0 L [place] % (Auto) 18.6 H Eos % (Auto) 0.2 L Baso % (Auto) 0.2 Neut # (Auto) 4300 Lymph # (Auto) 1500 [place] # (Auto) 1300 H Eos # (Auto) 0 Baso # (Auto) 0 Sodium 134 L 136 L Potassium 3.8 3.4 Chloride 100 103 Carbon Dioxide 25 25 BUN 18 21 H Creatinine 0.72 0.65 L Estimated GFR > 60 > 60 BUN/Creatinine Ratio 25.0 H 32.3 H Glucose 117 H 114 H Calcium 8.3 L 8.0 L Magnesium 2.1 2.2 PFSH Medical History Acute bacterial sinusitis Allergic rhinitis Cataracts, bilateral Chronic insomnia Essential hypertension Family history of colon cancer in father History of colonic polyps History of GI bleed History of ventral hernia Hypertension Mixed hyperlipidemia Transient ischemic attack (TIA) Surgical History Anesthesia History of cholecystectomy (~1994) History of hernia repair (~2003) Family History Mother Cancer Hypertension History of heart disease Father Colon cancer Myocardial infarction Brother Hypertension Diabetes mellitus Congestive heart failure Brother Diabetes mellitus Hypertension Social History details: Single, retired household members: none lives independently: Yes Smoking Status: Never smoker alcohol intake: current Assessment & Plan Post-op Postoperative Procedures: Procedures Operation Date: 03/06/23 15:45 Actual Procedure Side Surgeon p Exploratory Laparotomy GEN Elvin Lawrence MD Postoperative status narrative: 67M 1 week sp exlap, small bowel resection for enterocutaneous fistula. Prolonged post op ileus is resolving. -Full liquid diet. DC IVF if tolerating diet -Anticipate discharge within the next couple of days Quality VTE Deep Vein Thrombosis/Pulmonary Embolism Present on Admission: No
[2023-03-13 09:00] VITALS: BP 144/78; PULSE 95; RESP 16; TEMP 37.1; O2SAT 95
[2023-03-13 13:00] VITALS: BP 145/75; PULSE 90; RESP 16; TEMP 37.1; O2SAT 95
--- NOTE | 2023-03-13 16:10 | PM.PN.1 ---
Subjective Subjective Interval history: 67-year-old male with multiple prior abdominal surgeries, multiple prior small bowel obstructions, who is presently hospital day 7. And postoperative day 7. From exploratory laparotomy with lysis of adhesions, explantation of mesh, and enterectomy x2. Postoperative course has been complicated by an ileus as well as abdominal wall cellulitis secondary to colovesicular / enterocutaneous fistula. He is also had hypokalemia. Patient reports he is feeling significantly improved today compared to yesterday. Notes that he is less distended. He is passing gas. He has had a bowel movement as well. He notes that his surgeon will be advancing his diet to full liquids today and he has just finished ordering some cream of wheat. He denies any significant chest pain or shortness of breath. Exam Vital Signs (past 8 hours): - 03/13/23 09:00 03/13/23 08:30 Temperature 98.7 F Pulse Rate 95 H Respiratory Rate 16 Blood Pressure 144/78 H Pulse Oximetry 95 Oxygen Delivery Method Room Air Oxygen Delivery Method Room Air Oxygen Flow Rate 0 Narrative Exam Narrative: GEN: very pleasant middle-aged male,Alert and oriented x 3, NAD HEENT:NC, Face symmetric CHEST: Respiratory excursions symmetric, CTAB CV: RRR, no M/R/G ABD: Soft, moderately distended, mildly tender, hypoactiveBT present in all 4 quadrants, no organomegaly or masses, multiple old surgical scars noted, bruising noted to the left lower and right lower quadrant EXTR: warm, well perfused, no C/C/E SKIN: warm and dry, no rash NEURO: Alert and oriented x 3, nonfocal Objective Labs 03/13/23 06:30 03/13/23 06:30 Labs: Laboratory Results - last 24 hr 03/13/23 03/13/23 06:30 06:30 WBC 7.1 RBC 3.53 L Hgb 10.7 L Hct 30.8 L MCV 87.4 MCH 30.4 MCHC 34.7 RDW 13.6 Plt Count 317 Neut % (Auto) 60.0 Lymph % (Auto) 21.0 L [place] % (Auto) 18.6 H Eos % (Auto) 0.2 L Baso % (Auto) 0.2 Neut # (Auto) 4300 Lymph # (Auto) 1500 [place] # (Auto) 1300 H Eos # (Auto) 0 Baso # (Auto) 0 Sodium 136 L Potassium 3.4 Chloride 103 Carbon Dioxide 25 BUN 21 H Creatinine 0.65 L Estimated GFR > 60 BUN/Creatinine Ratio 32.3 H Glucose 114 H Calcium 8.0 L Magnesium 2.2 PFSH Medical History Acute bacterial sinusitis Allergic rhinitis Cataracts, bilateral Chronic insomnia Essential hypertension Family history of colon cancer in father History of colonic polyps History of GI bleed History of ventral hernia Hypertension Mixed hyperlipidemia Transient ischemic attack (TIA) Surgical History Anesthesia History of cholecystectomy (~1994) History of hernia repair (~2003) Family History Mother Cancer Hypertension History of heart disease Father Colon cancer Myocardial infarction Brother Hypertension Diabetes mellitus Congestive heart failure Brother Diabetes mellitus Hypertension Social History details: Single, retired household members: none lives independently: Yes Smoking Status: Never smoker alcohol intake: current Assessment & Plan Assessment & Plan narrative: 1. Ventral hernia, partial bowel obstruction, and postop ileus overall improving. Diet is being advanced. He may possibly be good enough to discharge tomorrow. 2. Abdominal wall cellulitis secondary to colovesicular/ enterocutaneous fistula patient completed a course of Zosyn therapy on March 11. No significant residual cellulitis noted. 3. Hypokalemia improved after repletion. We will follow. 4. Hyperlipidemia continue rosuvastatin 5. Hypertension patient declined his valsartan last night. Blood pressures have been moderately elevated today. I have added IV hydralazine as needed. 6. Normocytic anemia hemoglobin is stable at 10.7. 7. Hyponatremia Improving. Sodium up from 133 to 136. Code status Full Prophy On Lovenox. Dispo Possible d/c tomorrow. PT cleared him for d/c home w/assist. Quality VTE Deep Vein Thrombosis/Pulmonary Embolism Present on Admission: No
[2023-03-13] MEDS: POTASSIUM CHLORIDE 20 MEQ TAB 40 MEQ PO (17:33)
[2023-03-13 20:06] VITALS: BP 159/85; PULSE 89; RESP 16; TEMP 36.4; O2SAT 98
[2023-03-13] MEDS: VALSARTAN 80 MG TABLET 160 MG PO (20:34)
[2023-03-13] MEDS: ATORVASTATIN 20 MG TABLET PO (20:34)
[2023-03-13 23:50] VITALS: BP 169/95; PULSE 106; RESP 20; TEMP 36.5; O2SAT 99
--- NOTE | 2023-03-14 00:58 | PC.NURSE ---
Pt IV infiltrated in left forearm, DC IV. Attempted new IV access x3 with no success. Informed Dr. Lawrence and he stated patient does not need the scheduled IV reglan. Will leave IV out. Pt complains of no pain or n/v. Pt in chair with call light in reach.
[2023-03-14 05:00] VITALS: BP 156/80; PULSE 90; RESP 18; TEMP 36.2; O2SAT 99
[2023-03-14 06:29] LABS: Add Manual Diff / Slide Review NO; Basophils Absolute Auto 0 /uL (0-100); Basophils Percent Auto 0.1 % (0-2); Eosinophils Absolute Auto 100 /uL (0-450); Eosinophils Percent Auto 0.8 % (2-4); Hematocrit 31.2 % (41-53); Hemoglobin 10.9 g/dL (13.5-17.5); Lymphocytes Absolute Auto 1300 /uL (1100-4500); Lymphocytes Percent Auto 16.2 % (25-40); Mean Corpuscular HGB Conc 34.8 % (30-36); Mean Corpuscular Hemoglobin 30.6 PG (26-34); Monocytes Absolute Auto 1200 /uL (0-900); Neutrophils Absolute Auto 5400 /uL (1500-7000); Neutrophils Percent Auto 67.9 % (50-75); Platelet Count 326 X10^3/uL (150-400); Red Blood Cell Count 3.55 X10^6/uL (4.5-5.9); Red Cell Distribution Width 13.6 % (11.6-14.8)
[2023-03-14 06:47] LABS: BUN Creatinine Ratio 30.5 (6-22); Blood Urea Nitrogen 18 mg/dL (9-20); Carbon Dioxide 24 mmol/L (22-32); Chloride 104 mmol/L (98-107); Estimated Glomerular Filt Rate > 60 mL/min (>60); Glucose 100 mg/dL (80-110); HEMOLYSIS < 15 (0-50); Magnesium 2.2 mg/dL (1.6-2.3); Potassium 3.3 mmol/L (3.4-5.1); Sodium 135 mmol/L (137-145)
[2023-03-14 09:00] VITALS: BP 155/87; PULSE 90; RESP 17; TEMP 36.7; O2SAT 98
[2023-03-14] MEDS: POTASSIUM CHLORIDE 20 MEQ TAB 40 MEQ PO ×2 (10:08→14:53)
--- NOTE | 2023-03-14 11:00 | P.PN_ITS ---
Subjective Subjective Date Patient Seen: 03/14/23 Time Patient Seen: 11:00 Interval history: One week after an exploratory laparotomy small-bowel resection for enter ocutaneous fistula. Tolerated regular food yesterday no further nausea or emesis. Continues to have bowel function. Exam Vital Signs (past 8 hours): - 03/14/23 05:00 03/14/23 09:00 Temperature 97.2 F L 98.1 F Pulse Rate 90 90 Respiratory Rate 18 17 Blood Pressure 156/80 H 155/87 H Pulse Oximetry 99 98 Oxygen Flow Rate 0 0 Oxygen Delivery Method Room Air Oxygen Flow Rate 0 Narrative Exam Narrative: General adult man alert oriented no acute distress Abdomen soft minimal distention appropriately tender to palpation. Objective Labs 03/14/23 05:55 03/14/23 05:55 Labs: Laboratory Results - last 24 hr 03/14/23 03/14/23 05:55 05:55 WBC 8.0 RBC 3.55 L Hgb 10.9 L Hct 31.2 L MCV 88.0 MCH 30.6 MCHC 34.8 RDW 13.6 Plt Count 326 Neut % (Auto) 67.9 Lymph % (Auto) 16.2 L [place] % (Auto) 15.0 H Eos % (Auto) 0.8 L Baso % (Auto) 0.1 Neut # (Auto) 5400 Lymph # (Auto) 1300 [place] # (Auto) 1200 H Eos # (Auto) 100 Baso # (Auto) 0 Sodium 135 L Potassium 3.3 L Chloride 104 Carbon Dioxide 24 BUN 18 Creatinine 0.59 L Estimated GFR > 60 BUN/Creatinine Ratio 30.5 H Glucose 100 Calcium 8.0 L Magnesium 2.2 PFSH Medical History Acute bacterial sinusitis Allergic rhinitis Cataracts, bilateral Chronic insomnia Essential hypertension Family history of colon cancer in father History of colonic polyps History of GI bleed History of ventral hernia Hypertension Mixed hyperlipidemia Transient ischemic attack (TIA) Surgical History Anesthesia History of cholecystectomy (~1994) History of hernia repair (~2003) Family History Mother Cancer Hypertension History of heart disease Father Colon cancer Myocardial infarction Brother Hypertension Diabetes mellitus Congestive heart failure Brother Diabetes mellitus Hypertension Social History details: Single, retired household members: none lives independently: Yes Smoking Status: Never smoker alcohol intake: current Assessment & Plan Post-op Postoperative Procedures: Procedures Operation Date: 03/06/23 15:45 Actual Procedure Side Surgeon p Exploratory Laparotomy GEN Elvin Lawrence MD Postoperative status narrative: 67-year-old man postoperative day 8 status post exploratory laparotomy with small-bowel resection x2 for a enterocutaneous fistula. He is recovered from the operation appropriately. Postoperative ileus has resolved. -regular diet -follow-up within the next 2 weeks with General surgery for evaluation and staple removal Quality VTE Deep Vein Thrombosis/Pulmonary Embolism Present on Admission: No
[2023-03-14 13:00] VITALS: BP 155/85; PULSE 88; RESP 17; TEMP 36.9; O2SAT 100
--- NOTE | 2023-03-14 14:11 | P.PN_ITS ---
Subjective Subjective Interval history: 67 M s/p bowel resection and mesh removal for enterocutaneous fistula. Some nausea this morning with general diet, but overall tolerating well. Exam Vital Signs (past 8 hours): - 03/14/23 09:00 Temperature 98.1 F Pulse Rate 90 Respiratory Rate 17 Blood Pressure 155/87 H Pulse Oximetry 98 Oxygen Flow Rate 0 Oxygen Delivery Method Room Air Oxygen Flow Rate 0 Narrative Exam Narrative: GEN: very pleasant middle-aged male,Alert and oriented x 3, NAD HEENT:NC, Face symmetric CHEST: Respiratory excursions symmetric, CTAB CV: RRR, no M/R/G ABD: Soft, moderately distended, mildly tender, hypoactiveBT present in all 4 quadrants, no organomegaly or masses, multiple old surgical scars noted, bruising noted to the left lower and right lower quadrant EXTR: warm, well perfused, no C/C/E SKIN: warm and dry, no rash NEURO: Alert and oriented x 3, nonfocal Objective Labs 03/14/23 05:55 03/14/23 05:55 Labs: Laboratory Results - last 24 hr 03/14/23 03/14/23 05:55 05:55 WBC 8.0 RBC 3.55 L Hgb 10.9 L Hct 31.2 L MCV 88.0 MCH 30.6 MCHC 34.8 RDW 13.6 Plt Count 326 Neut % (Auto) 67.9 Lymph % (Auto) 16.2 L [place] % (Auto) 15.0 H Eos % (Auto) 0.8 L Baso % (Auto) 0.1 Neut # (Auto) 5400 Lymph # (Auto) 1300 [place] # (Auto) 1200 H Eos # (Auto) 100 Baso # (Auto) 0 Sodium 135 L Potassium 3.3 L Chloride 104 Carbon Dioxide 24 BUN 18 Creatinine 0.59 L Estimated GFR > 60 BUN/Creatinine Ratio 30.5 H Glucose 100 Calcium 8.0 L Magnesium 2.2 PFSH Medical History Acute bacterial sinusitis Allergic rhinitis Cataracts, bilateral Chronic insomnia Essential hypertension Family history of colon cancer in father History of colonic polyps History of GI bleed History of ventral hernia Hypertension Mixed hyperlipidemia Transient ischemic attack (TIA) Surgical History Anesthesia History of cholecystectomy (~1994) History of hernia repair (~2003) Family History Mother Cancer Hypertension History of heart disease Father Colon cancer Myocardial infarction Brother Hypertension Diabetes mellitus Congestive heart failure Brother Diabetes mellitus Hypertension Social History details: Single, retired household members: none lives independently: Yes Smoking Status: Never smoker alcohol intake: current Assessment & Plan Assessment & Plan narrative: 1. 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 ?- now complicated by ileus on 03/12 ?- prn pain control ?- Completed Zosyn x 5 days total, thru 03/11/23 ?- enc ambulation ? ? ? 2. Ventral hernia with partial bowel obstruction ?- s/p ex lap with mesh removal 3. Mixed hyperlipidemia: ?- continue home rosuvastatin 10 4. Essential hypertension, improved control ?- continue home valsartan 160 ? 5. Chronic insomnia: ?- melatonin prn 6. Hypokalemia -Unclear etiology, perhaps from decreased intake -Kcl 20 meq BID for 3-4 doses and follow BMP Dispo: Home tomorrow if tolerating diet, potassium stable Code: Full Quality VTE Deep Vein Thrombosis/Pulmonary Embolism Present on Admission: No
[2023-03-14] MEDS: ACETAMINOPHEN 325 MG TABLET 650 MG PO (14:53)
[2023-03-14 17:00] VITALS: BP 117/58; PULSE 77; RESP 17; TEMP 36.6; O2SAT 96
[2023-03-14] MEDS: VALSARTAN 80 MG TABLET 160 MG PO (20:43)
[2023-03-14] MEDS: ATORVASTATIN 20 MG TABLET PO (20:43)
[2023-03-14 21:00] VITALS: BP 154/82; PULSE 75; RESP 20; TEMP 35.9; O2SAT 98
[2023-03-15 00:27] VITALS: BP 146/79; PULSE 84; RESP 17; TEMP 36.7; O2SAT 98
[2023-03-15] MEDS: OXYCODONE IR 5 MG TABLET PO (03:46)
[2023-03-15 06:19] LABS: Add Manual Diff / Slide Review NO; Basophils Absolute Auto 0 /uL (0-100); Basophils Percent Auto 0.2 % (0-2); Eosinophils Absolute Auto 100 /uL (0-450); Hemoglobin 10.3 g/dL (13.5-17.5); Lymphocytes Absolute Auto 2000 /uL (1100-4500); Lymphocytes Percent Auto 21.4 % (25-40); Mean Corpuscular HGB Conc 34.3 % (30-36); Mean Corpuscular Hemoglobin 30.2 PG (26-34); Monocytes Absolute Auto 900 /uL (0-900); Monocytes Percent Auto 9.4 % (3-14); Neutrophils Absolute Auto 6400 /uL (1500-7000); Platelet Count 346 X10^3/uL (150-400); Red Blood Cell Count 3.41 X10^6/uL (4.5-5.9); Red Cell Distribution Width 13.8 % (11.6-14.8); White Blood Cell Count 9.4 X10^3/uL (4.5-11.0)
[2023-03-15 06:51] LABS: BUN Creatinine Ratio 28.3 (6-22); Blood Urea Nitrogen 17 mg/dL (9-20); Calcium 7.9 mg/dL (8.4-10.2); Carbon Dioxide 22 mmol/L (22-32); Chloride 104 mmol/L (98-107); Estimated Glomerular Filt Rate > 60 mL/min (>60); Glucose 96 mg/dL (80-110); HEMOLYSIS < 15 (0-50); Magnesium 2.2 mg/dL (1.6-2.3); Potassium 3.3 mmol/L (3.4-5.1); Sodium 134 mmol/L (137-145)
[2023-03-15] MEDS: ACETAMINOPHEN 325 MG TABLET 650 MG PO (08:22)
--- NOTE | 2023-03-15 08:52 | P.DS_ITS ---
History of Present Illness History of Present Illness Date Patient Seen: 03/15/23 Time Patient Seen: 08:53 Chief complaint: possible hernia strangulation Narrative: Per admitting provvider, 67-year-old gentleman with a history of hypertension and multiple complex abdominal surgerie, abdominal hernias, and partial bowel obstructions presents with increasing abdominal pain and an area of pain and redness extending from the periumbilical area over the right side of his abdomen.? There is an area of irritation in the middle of the scar where his umbilicus would typically be.? This area is new and there is no obvious drainage.? Typically with his recurrent abdominal pain he has been able to manage with clear liquid diet and Tylenol to avoid hospitalization and admission.? He has been getting worse over the last 24 hours with pain which is why he presents the cellulitis aspect is new.? He is never experienced similar complaints.? He denies fevers, chills, chest pain, palpitations, headache, myalgias. Surgery was consulted and have ordered a gastrograffin study with concern for possible enterocutaneous fistula and possible bowel obstruction noted on CT imaging. Redness is improved this morning after antibiotic therapy. Discharge Providers Provider Date of admission: 03/05/23 20:17 Discharge Date: 03/15/23 Primary care physician: Benny Figueroa MD Consults: 03/05/23 20:15 Consult to General Surgery Stat Comment: Consulting Provider: Moy,NADIA* Reason for consultation: rule out incarcerated vertebral hernia and abdominal fistula development Has provider been notified: Yes 03/06/23 11:06 Consult to General Surgery Routine Comment: Consulting Provider: Elvin Lawrence Reason for consultation: abdominal wall cellulitis, concern for fistulae 03/07/23 15:57 Consult to Physical Therapy Evaluate & Treat Comment: Physician Instructions: Evaluate and Treat Discharge provider: Ash Greenberg DO Summary Hospital Course Discharge Diagnosis: 1. 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 ? ? 2. Ventral hernia with partial bowel obstruction 3. Mixed hyperlipidemia: 4. Essential hypertension, improved control ? 5. Chronic insomnia: 6. 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 He underwent surgical interventions with a small bowel resection and mesh removal. He completed 5 days of zosyn during his hospitalization. He had slow to return bowel function during his stay, and developed a post operative ileus but did not require replacement of his NG tube. At the time of discharge patient was tolerating a diet. He was sent home with as needed pain and nausea medications. No changes to his home medication are recommended at the time of discharge. Time Spent with Patient Time spent: Greater than 30 minutes Exam Vital Signs (past 8 hours): Oxygen Delivery Method Room Air Oxygen Flow Rate 0 Narrative Exam Narrative: GEN: very pleasant middle-aged male,Alert and oriented x 3, NAD HEENT:NC, Face symmetric CHEST: Respiratory excursions symmetric, CTAB CV: RRR, no M/R/G ABD: Soft, moderately distended, mildly tender, hypoactiveBT present in all 4 quadrants, no organomegaly or masses, multiple old surgical scars noted, bruising noted to the left lower and right lower quadrant EXTR: warm, well perfused, no C/C/E SKIN: warm and dry, no rash NEURO: Alert and oriented x 3, nonfocal Objective Labs 03/15/23 06:02 03/15/23 06:02 Labs: Laboratory Results - last 24 hr 03/15/23 03/15/23 06:02 06:02 WBC 9.4 RBC 3.41 L Hgb 10.3 L Hct 30.0 L MCV 88.0 MCH 30.2 MCHC 34.3 RDW 13.8 Plt Count 346 Neut % (Auto) 68.0 Lymph % (Auto) 21.4 L [place] % (Auto) 9.4 Eos % (Auto) 1.0 L Baso % (Auto) 0.2 Neut # (Auto) 6400 Lymph # (Auto) 2000 [place] # (Auto) 900 Eos # (Auto) 100 Baso # (Auto) 0 Sodium 134 L Potassium 3.3 L Chloride 104 Carbon Dioxide 22 BUN 17 Creatinine 0.60 L Estimated GFR > 60 BUN/Creatinine Ratio 28.3 H Glucose 96 Calcium 7.9 L Magnesium 2.2 PFSH Medical History Acute bacterial sinusitis Allergic rhinitis Cataracts, bilateral Chronic insomnia Essential hypertension Family history of colon cancer in father History of colonic polyps History of GI bleed History of ventral hernia Hypertension Mixed hyperlipidemia Transient ischemic attack (TIA) Surgical History Anesthesia History of cholecystectomy (~1994) History of hernia repair (~2003) Family History Mother Cancer Hypertension History of heart disease Father Colon cancer Myocardial infarction Brother Hypertension Diabetes mellitus Congestive heart failure Brother Diabetes mellitus Hypertension Social History details: Single, retired household members: none lives independently: Yes Smoking Status: Never smoker alcohol intake: current Discharge Plan Discharge Plan Patient Disposition: Home Provider Discharge Comment: You were admitted to the hospital with a fistula between your small bowel and skin. You had surgery to remove the bowel and the previous mesh. Pain and nausea medications were sent, try to use tylenol for pain first and stronger opiate if more severe pain. Discharge orders & Medications Prescriptions: New oxycodone 5 mg Tablet 5 mg PO Q4HR PRN (Reason: Pain, Moderate (4-6)) 7 Days Qty: 20 0RF ondansetron 4 mg tablet,disintegrating 4 mg PO Q8H PRN (Reason: nausea and vomiting) Qty: 30 0RF Continued valsartan 160 mg tablet 160 mg PO DAILY Qty: 90 3RF rosuvastatin 10 mg tablet 10 mg PO DAILY Qty: 90 3RF Patient Comments: pt takes at 2100 Changed acetaminophen 500 mg Capsule 1,000 mg PO BEDTIME PRN (Reason: Pain, Moderate) Qty: 30 0RF Follow up/Referrals: Benny Figueroa MD [Primary Care Provider] - Elvin Lawrence MD [Physician] - Diet/Activity/Treatments Diet: Diet as Tolerated and Regular Activity: As tolerated, no heavy lifting after abdominal surgery Visit Report/Discharge Packet Instructions: Ileus Stand Alone Forms: Patient Portal/API, Stroke Signs & Symptoms Discharge Data Primary Care Provider: Benny Figueroa V Discharges patient from system. Discharge Date/Time: 03/15/23 10:45 Quality VTE Deep Vein Thrombosis/Pulmonary Embolism Present on Admission: No
[2023-03-15 09:00] VITALS: BP 132/73; PULSE 89; RESP 17; TEMP 36.8; O2SAT 98
--- NOTE | 2023-03-15 11:40 | PC.NURSE ---
Day shift: Went over discharge instructions with patient. Answered all questions and patient stated understanding. No PIV or tele. Pt escorted to Emergency room exit with SONA Ken via wheelchair. Pt's brother came to supervisor opening and picking.
== END 2023-03-15 10:45 | disposition home or self-care (01) | DRG 330 ==
LOC: ED 19:50 → AC 03-06 08:23
PROVIDERS: Emergency Medicine; Family Medicine; Internal Medicine; Student in an Organized Health Care Education/Training Program; Surgery; Admitting Provider Internal Medicine; Emergency Provider Emergency Medicine; PCP Internal Medicine; Referring Provider Surgery; Visit Provider Internal Medicine
PROC: 0DB80ZZ Excision of Small Intestine, Open Approach (ICD-10-PCS; CPT 49000; principal; 2023-03-06 15:45)
DX: K43.6 Other and unspecified ventral hernia with obstruction, without gangrene (principal); E87.1 Hypo-osmolality and hyponatremia; K56.51 Intestinal adhesions [bands], with partial obstruction; K56.7 Ileus, unspecified; K63.2 Fistula of intestine; L03.311 Cellulitis of abdominal wall; K91.89 Other postprocedural complications and disorders of digestive system; E78.2 Mixed hyperlipidemia; I10 Essential (primary) hypertension; G47.00 Insomnia, unspecified; E87.6 Hypokalemia
CPT/HCPCS: 36415; 74018; 74177; 80048; 80053; 81003; 81015; 82248; 83605; 83690; 83735; 85025; 87045; 87070; 87075; 87205; 87899; 96365; 97161; 99284; 99285; J0330; J1170; J1650; J2250; J2405; J2543; J2704; J2765; J3010; J3490

== ENCOUNTER 2023-03-28 15:21 | Inpatient (IN) | payer MEDICARE, SELFPAY ==
[2023-03-05 21:50] VITALS: BMI 29.5
[2023-03-28 15:22] VITALS: BP 182/99; PULSE 105; RESP 15; TEMP 37; O2SAT 100; BMI 28.4
--- NOTE | 2023-03-28 15:38 | DI.CT.S_ITS ---
PROCEDURE: CT ABDOMEN PELVIS W CON INDICATIONS: MIDLINE ABD PAIN/POSS POSTOP ABSCESS TECHNIQUE: After the administration of intravenous contrast, axial sections acquired from the lung bases to the pubic symphysis. Coronal and sagittal reformats were performed. For radiation dose reduction, the following was used: automated exposure control, adjustment of mA and/or kV according to patient size. COMPARISON: [facility], CT, CT ABDOMEN PELVIS W CON, 03/05/2023, 16:23. [facility], CT, ABDOMEN/PELVIS WITH CONTRAST, 02/28/2012, 10:01. FINDINGS: Image quality: Excellent. Lung bases: Lung bases are clear. Heart: Heart size is normal. Coronary atherosclerotic vascular calcifications are noted. ABDOMEN: Liver: There is diffuse hypoattenuation of the liver parenchyma relative to the spleen compatible with hepatic steatosis. Gallbladder: Status post cholecystectomy. Biliary ducts: No intrahepatic or extrahepatic biliary ductal dilatation identified. Pancreas: Homogeneous enhancement without focal lesions or pancreatic ductal dilatation. No peripancreatic inflammation or organized fluid collections. Spleen: No splenomegaly Adrenal Glands: Unremarkable. Kidneys and Ureters: Kidneys are symmetric in size and enhancement, and there is no obstructive uropathy. No perinephric inflammatory changes. Ureters are normal in course and caliber. Stomach and Bowel: Stomach appears unremarkable. Redemonstration of postsurgical changes of prior partial bowel resection of the lower midline abdomen. There appears to be additional postsurgical changes of interval partial bowel resection of the left mid abdomen. Severe sigmoid colon diverticulosis without evidence for acute diverticulitis. Peritoneum/ventral wall: No free fluid. New thick rimmed fluid collection adjacent to new postsurgical changes of the left mid abdomen measuring 6.1 x 4.1 cm in axial cross-sectional dimension (56/series 2). New rim enhancing fluid collection in the ventral abdominal wall measuring 6.2 x 3.8 cm (59/series 2). Adjacent inflammatory stranding. Postsurgical changes of ventral hernia repair compared to the prior study. No free air. Abdominal Nodes: No retroperitoneal or mesenteric adenopathy by size criteria. Vessels: Scattered atherosclerotic calcifications of the abdominal aorta and iliac vessels without aneurysmal dilatation. The inferior vena cava appears patent. PELVIS: Pelvic Organs: Unremarkable. Bladder: Unremarkable. Pelvic Nodes: No enlarged lymph nodes. Miscellaneous: No hernias are seen. Bones: No acute vertebral body compression fractures. Multilevel spondylitic changes throughout the imaged spine. No suspicious osseous lesions. IMPRESSION: 1. Interval postsurgical changes of partial bowel resection involving the left mid abdomen as well as postsurgical changes of ventral hernia repair. There are 2 new rim enhancing fluid collection suspicious for postsurgical seroma versus abscess. 1 is noted in the subcutaneous soft tissues over the ventral midline abdomen measuring approximately 6.2 x 3.8 cm. The 2nd is noted in the peritoneal cavity adjacent to site of recent bowel resection measuring 6.1 x 4.1 cm in size. 2. Severe sigmoid colonic diverticulosis without evidence for acute diverticulitis. 3. Hepatic steatosis. 4. Atherosclerosis. 5. Status post cholecystectomy. Dictated by: Alan Renee M.D. on 03/28/2023 at 16:45 Approved by: Alan Renee M.D. on 03/28/2023 at 17:02
--- NOTE | 2023-03-28 15:45 | ED_ITS ---
HPI - Skin/Abscess/Foreign Bdy General Chief complaint: Skin/Abscess/Foreign Body Stated complaint: Infected insision site Time Seen by Provider: 03/28/23 15:31 Source: patient Mode of arrival: Wheelchair History of Present Illness HPI narrative: 67-year-old male presents from his surgeon's office for possible abdominal infection. Patient underwent ex lap on 03/06/2023 for repair of enterocutaneous fistula. Patient states that he has been healing well at home, however approximately 5 days ago he noticed some drainage from his surgical site as well as some swelling. He states that he has been recording his temperature every day and has measured temperatures up to 100.7 F, for which he has been taking Tylenol. He saw his surgeon today, who referred him to the emergency department for evaluation for possible abscess. Related Data Previous Rx's Medication Instructions Recorded rosuvastatin 10 mg tablet 10 mg PO DAILY #90 tabs 12/12/22 valsartan 160 mg tablet 160 mg PO DAILY #90 tabs 12/12/22 acetaminophen 500 mg capsule 1,000 mg PO BEDTIME PRN Pain, 03/15/23 Moderate #30 caps ondansetron 4 mg disintegrating 4 mg PO Q8H PRN nausea and 03/15/23 tablet vomiting #30 tabs Allergies Allergy/AdvReac Type Severity Reaction Status Date / Time morphine Allergy Unknown Agitated Verified 03/28/23 15:30 amlodipine AdvReac Intermediate constipatio Verified 03/28/23 15:30 n enalapril AdvReac Intermediate Cough Verified 03/28/23 15:30 losartan AdvReac Intermediate Cramping Verified 03/28/23 15:30 of the Muscles Review of Systems Review of Systems Narrative: CONSTITUTIONAL- Denies: fever, chills, HEENT- Denies: sore throat, nosebleed, vision changes RESPIRATORY- Denies: shortness of breath, cough, wheezing CARDIAC- Denies: chest pain, edema, orthopnea GI- Denies: abdominal pain, nausea, vomiting, constipation, diarrhea - Denies: frequency, dysuria, hematuria, flank pain MSK- Denies: extremity pain, extremity swelling, joint pain, joint swelling SKIN-reports: Swelling, abdomen, drainage from abdominal wound Denies: rash, itching, burn NEUROLOGICAL- Denies: headache, numbness, weakness, dizziness PSYCHIATRIC- Denies: anxiety, depression, suicidal ideation, homicidal ideation Patient History Medical History Acute bacterial sinusitis Allergic rhinitis Cataracts, bilateral Chronic insomnia Essential hypertension Family history of colon cancer in father History of colonic polyps History of GI bleed History of ventral hernia Hypertension Mixed hyperlipidemia Transient ischemic attack (TIA) Surgical History Anesthesia History of cholecystectomy (~1994) History of hernia repair (~2003) Family History Mother Cancer Hypertension History of heart disease Father Colon cancer Myocardial infarction Brother Hypertension Diabetes mellitus Congestive heart failure Brother Diabetes mellitus Hypertension Social History details: Single, retired household members: none lives independently: Yes Smoking Status: Never smoker alcohol intake: current Smoking Status: Never smoker alcohol intake frequency: holidays/special occasions only Substance Use Type: does not use Exam Initial Vital Signs Initial Vital Signs: Vital Signs Temperature 98.6 F 03/28/23 15:22 Pulse Rate 105 H 03/28/23 15:22 Respiratory Rate 15 03/28/23 15:22 Blood Pressure 182/99 H 03/28/23 15:22 Pulse Oximetry 100 03/28/23 15:22 Oxygen Delivery Method Room Air 03/28/23 15:22 Const: Well-nourished, Well-developed, appears stated age Eyes: PERRL, EOMI, conjunctiva normal ENT: Atraumatic, dentition normal, mucous membranes moist Cardiac: regular rate, regular rhythm RESP: unlabored, clear bilaterally, no wheezing GI: Atraumatic, soft, well-healed ex lap scar, proximally 2 cm diameter area of swelling inferior to umbilicus with surrounding induration MSK: Atraumatic, full range of motion, pulses equal Skin: Warm, Dry, intact, no rashes Neuro: AO x3, CN II-XII grossly intact, moves all extremities Psych: affect normal, mood normal, not suicidal, not homicidal Course Course Course Narrative: Swelling and drainage around previously thought healed surgical site. Abdomen is soft, however patient is reporting temperatures up to 100.7? F at home, concern is for underlying infection. Sepsis bundle ordered, will give Zosyn for suspected underlying abscess. Orders Ordered: ED Orders 03/28/23 15:37 EKG-12 Lead Stat 03/28/23 15:38 CT abdomen pelvis w con Stat 03/28/23 15:40 Complete Blood Count AUTO DIFF Stat Comprehensive Metabolic Panel Stat Lactate (Lactic Acid) Stat Troponin & CK Cardiac Panel Stat 03/28/23 16:05 Blood Culture Stat 03/28/23 16:09 Urinalysis and Microscopic Stat Acetaminophen (Acetaminophen 325 Mg Tablet) 650 mg PO Q6H PRN PRN Reason: Fever/Mild Pain (1-3) Hydromorphone HCl (Hydromorphone 0.5 Mg Inj) 0.5 mg IV Q2H PRN PRN Reason: Pain, Severe (7-10) Sodium Chloride (Normal Saline 0.9%) 2,326.92 mls @ 775.64 mls/hr 30 ml/kg infuse over 3 hr (2326.92 ml) IV NOW ONE Stop: 03/28/23 18:36 Last Admin: 03/28/23 16:17 Dose: 775.64 mls/hr Documented By: RANDY Lactated Ringer's (Lactated Ringers) 1,000 mls @ 100 mls/hr IV CONT ARMILA Ibuprofen (Ibuprofen 600 Mg Tablet) 600 mg PO Q6H PRN PRN Reason: Fever/Mild Pain (1-3) Naloxone HCl (Naloxone 0.4 Mg/Ml Vial) 0.2 mg IV Q2MIN PRN PRN Reason: Opiate Reversal Oxycodone HCl (Oxycodone Ir 5 Mg Tablet) 5 mg PO Q3H PRN PRN Reason: Pain, Moderate (4-6) Discontinued Medications Piperacillin Sod/Tazobactam (Sod 4.5 gm/ Sodium Chloride) 100 mls @ 200 mls/hr IV NOW ONE Stop: 03/28/23 15:38 Last Infusion: 03/28/23 16:55 Dose: 0 mls/hr Documented By: Admin: 03/28/23 16:16 Dose: 200 mls/hr Documented By: RANDY Reevaluation(s) Reevaluation #1: Laboratory work and imaging is reviewed. Discussed findings of CTA with General surgery, who will admit the patient to their service for possible operative drainage of abscesses. Consultations Consultation #1: Dr. Lawrence of General surgery - will admit patient to their service for probably operative drainage of abscess Vital Signs Vital signs: Vital Signs - 8 hr 03/28/23 15:22 Temperature 98.6 F Pulse Rate 105 H Respiratory Rate 15 Blood Pressure 182/99 H Pulse Oximetry 100 Oxygen Delivery Method Room Air MDM - Skin/Abscess/Foreign Bdy Differential Diagnosis Differential diagnosis: Likely abscess of skin or subcutaneous tissue, cellulitis and other (abdominal abscess) Lab Data 03/28/23 15:40 03/28/23 15:40 Labs: Lab Results 03/28/23 03/28/23 03/28/23 Range/Units 15:40 15:40 15:40 WBC 11.2 H (4.5-11.0) X10^3/uL RBC 4.22 L (4.5-5.9) X10^6/uL Hgb 12.5 L (13.5-17.5) g/dL Hct 36.2 L (41-53) % MCV 85.8 (80-100) fL MCH 29.5 (26-34) PG MCHC 34.4 (30-36) % RDW 14.0 (11.6-14.8) % Plt Count 538 H (150-400) X10^3/uL Neut % (Auto) 68.7 (50-75) % Lymph % (Auto) 23.0 L (25-40) % [place] % (Auto) 7.6 (3-14) % Eos % (Auto) 0.3 L (2-4) % Baso % (Auto) 0.4 (0-2) % Neut # (Auto) 7700 H (0524-6418) /uL Lymph # (Auto) 2600 (3603-0261) /uL [place] # (Auto) 800 (0-900) /uL Eos # (Auto) 0 (0-450) /uL Baso # (Auto) 0 (0-100) /uL Sodium 138 (137-145) mmol/L Potassium 3.3 L (3.4-5.1) mmol/L Chloride 102 (98-107) mmol/L Carbon Dioxide 23 (22-32) mmol/L BUN 9 (9-20) mg/dL Creatinine 0.65 L (0.66-1.25) mg/dL Estimated GFR > 60 (>60) mL/min BUN/Creatinine Ratio 13.8 (6-22) Glucose 111 H (80-110) mg/dL Lactate 1.7 (0.7-2.1) mmol/L Calcium 9.3 (8.4-10.2) mg/dL Total Bilirubin 0.7 (0.2-1.3) mg/dL AST 30 (17-59) IU/L ALT 30 (<50) IU/L Alkaline Phosphatase 131 H (38-126) U/L Total Creatine Kinase 32 L (55-170) U/L Troponin I 0.013 (0.01-0.034) ng/mL Total Protein 8.1 (6.3-8.2) g/dL Albumin 4.3 (3.5-5.0) g/dL Globulin 3.8 (1.7-4.1) g/dL Albumin/Globulin Ratio 1.1 (1.0-2.8) Urine Color Urine Appearance Urine pH (4.5-8.0) Ur Specific [place] (1.000-1.035) Urine Protein (Negative) Urine Glucose (UA) (Negative) g/dL Urine Ketones (NEGATIVE) Urine Occult Blood (Negative) Urine Nitrate (Negative) Urine Bilirubin (NEGATIVE) Urine Urobilinogen (0.2) E.U./dL Ur Leukocyte Esterase (NEGATIVE) Urine RBC (0-5/HPF) Urine WBC (0-5/HPF) Ur Squamous Epith Cells (0-5/HPF) Urine Bacteria (None) Ur Culture Indicated? 03/28/23 Range/Units 16:09 WBC (4.5-11.0) X10^3/uL RBC (4.5-5.9) X10^6/uL Hgb (13.5-17.5) g/dL Hct (41-53) % MCV (80-100) fL MCH (26-34) PG MCHC (30-36) % RDW (11.6-14.8) % Plt Count (150-400) X10^3/uL Neut % (Auto) (50-75) % Lymph % (Auto) (25-40) % [place] % (Auto) (3-14) % Eos % (Auto) (2-4) % Baso % (Auto) (0-2) % Neut # (Auto) (6199-9714) /uL Lymph # (Auto) (8266-6741) /uL [place] # (Auto) (0-900) /uL Eos # (Auto) (0-450) /uL Baso # (Auto) (0-100) /uL Sodium (137-145) mmol/L Potassium (3.4-5.1) mmol/L Chloride (98-107) mmol/L Carbon Dioxide (22-32) mmol/L BUN (9-20) mg/dL Creatinine (0.66-1.25) mg/dL Estimated GFR (>60) mL/min BUN/Creatinine Ratio (6-22) Glucose (80-110) mg/dL Lactate (0.7-2.1) mmol/L Calcium (8.4-10.2) mg/dL Total Bilirubin (0.2-1.3) mg/dL AST (17-59) IU/L ALT (<50) IU/L Alkaline Phosphatase (38-126) U/L Total Creatine Kinase (55-170) U/L Troponin I (0.01-0.034) ng/mL Total Protein (6.3-8.2) g/dL Albumin (3.5-5.0) g/dL Globulin (1.7-4.1) g/dL Albumin/Globulin Ratio (1.0-2.8) Urine Color Yellow Urine Appearance Clear Urine pH 6.5 (4.5-8.0) Ur Specific [place] <=1.005 (1.000-1.035) Urine Protein Negative (Negative) Urine Glucose (UA) Negative (Negative) g/dL Urine Ketones Negative (NEGATIVE) Urine Occult Blood Trace-intact (Negative) Urine Nitrate Negative (Negative) Urine Bilirubin Negative (NEGATIVE) Urine Urobilinogen 0.2 (0.2) E.U./dL Ur Leukocyte Esterase Negative (NEGATIVE) Urine RBC 0-1/hpf (0-5/HPF) Urine WBC None seen (0-5/HPF) Ur Squamous Epith Cells 0-1 /hpf (0-5/HPF) Urine Bacteria None seen (None) Ur Culture Indicated? Cult not indicated Urine Dip Bedside Urine Glucose Negative Bedside Urine Bilirubin - Negative Bedside Urine Ketone - Negative Urine Specific [place] 1.000 Bedside Urine Occult Blood - Negative Bedside Urine pH 6.5 Bedside Urine Protein - Negative Bedside Urine Urobilinogen - Negative Bedside Urine Nitrite - Negative Bedside Urine Leukocytes - Negative Esterase Discharge Plan Departure Patient Disposition: Admitted as Observation Clinical Impression: Abdominal wall abscess Admit Date/Time: 03/28/23 16:27 Admit Provider: Elvin Lawrence
[2023-03-28 15:48] LABS: Add Manual Diff / Slide Review NO; Basophils Absolute Auto 0 /uL (0-100); Basophils Percent Auto 0.4 % (0-2); Eosinophils Absolute Auto 0 /uL (0-450); Eosinophils Percent Auto 0.3 % (2-4); Hematocrit 36.2 % (41-53); Hemoglobin 12.5 g/dL (13.5-17.5); Lymphocytes Absolute Auto 2600 /uL (1100-4500); Mean Corpuscular HGB Conc 34.4 % (30-36); Mean Corpuscular Hemoglobin 29.5 PG (26-34); Mean Corpuscular Volume 85.8 fL (80-100); Monocytes Absolute Auto 800 /uL (0-900); Monocytes Percent Auto 7.6 % (3-14); Neutrophils Absolute Auto 7700 /uL (1500-7000); Neutrophils Percent Auto 68.7 % (50-75); Platelet Count 538 X10^3/uL (150-400); Red Blood Cell Count 4.22 X10^6/uL (4.5-5.9); White Blood Cell Count 11.2 X10^3/uL (4.5-11.0)
[2023-03-28 16:03] LABS: Alanine Aminotransferase 30 IU/L (<50); Albumin 4.3 g/dL (3.5-5.0); Albumin Globulin Ratio 1.1 (1.0-2.8); Alkaline Phosphatase 131 U/L (38-126); Aspartate Aminotransferase 30 IU/L (17-59); BUN Creatinine Ratio 13.8 (6-22); Bilirubin Total 0.7 mg/dL (0.2-1.3); Blood Urea Nitrogen 9 mg/dL (9-20); Calcium 9.3 mg/dL (8.4-10.2); Carbon Dioxide 23 mmol/L (22-32); Chloride 102 mmol/L (98-107); Creatine Kinase 32 U/L (55-170); Estimated Glomerular Filt Rate > 60 mL/min (>60); Globulin 3.8 g/dL (1.7-4.1); Glucose 111 mg/dL (80-110); HEMOLYSIS < 15 (0-50); Lactate (Lactic Acid) 1.7 mmol/L (0.7-2.1); Potassium 3.3 mmol/L (3.4-5.1); Sodium 138 mmol/L (137-145); Total Protein 8.1 g/dL (6.3-8.2)
[2023-03-28 16:13] LABS: Troponin I 0.013 ng/mL (0.01-0.034)
[2023-03-28] MEDS: PIPERACILLIN/TAZO 4.5 GM in SODIUM CHLORIDE 0.9% 100 ML IV (16:16)
[2023-03-28] MEDS: SODIUM CHLORIDE 0.9% 775.64 ML IV (16:17)
[2023-03-28 16:19] LABS: Appearance Urine UA CLEAR; Bilirubin Urine UA NEGATIVE (NEGATIVE); Color Urine UA YELLOW; Glucose Urine UA NEGATIVE (Negative); Ketones Urine UA NEGATIVE (NEGATIVE); Leukocyte Esterase Urine UA NEGATIVE (NEGATIVE); Nitrite Urine UA NEGATIVE (Negative); Occult Blood Urine UA TRACE-INTACT (Negative); Protein Urine UA NEGATIVE (Negative); Specific Gravity Urine UA <=1.005 (1.000-1.035); Urobilinogen Urine UA 0.2 E.U./dL (0.2); pH Urine UA 6.5 (4.5-8.0)
[2023-03-28 16:30] LABS: Bacteria Urine None Seen; Culture Indicated Urine Cult Not Indicated; RBC Urine 0-1/HPF (0-5/HPF); Squamous Epithelial Cell Urine 0-1 /HPF (0-5/HPF); WBC Urine None Seen (0-5/HPF)
[2023-03-28 17:23] VITALS: BP 161/82; PULSE 87; RESP 16; TEMP 36.4; O2SAT 95
--- NOTE | 2023-03-28 17:27 | P.HP_ITS ---
History of Present Illness History of Present Illness Date Patient Seen: 03/28/23 Time Patient Seen: 17:27 Chief complaint: Infected insision site Narrative: Mr. Will is a 67-year-old man who is 3 weeks status post exploratory laparotomy, small-bowel resection for an enterocutaneous fistula. He has had numerous abdominal surgeries at outside hospitals including bowel resection, open cholecystectomy, ventral hernia repair. When he presented to the hospital earlier this month he had abdominal pain and wound drainage from the midline. He was taken to the operating room and a loop of small bowel was adherent to a ventral mesh where it had fistualized. Small-bowel resection was performed fascia was closed as best as possible but there is significant loss of abdominal domain. He reports that over the past several days he had serosanguineous drainage from the midline wound near the umbilicus and abdominal distention. He was seen in the surgical clinic today and given concerns for a wound infection brought to the emergency department for further evaluation. CT abdomen pelvis at admission demonstrates a large subcutaneous fluid collection along the anterior abdominal wall and a second intraperitoneal collection, no free fluid or air. Anastomosis is intact. Labs demonstrate white blood cell count of 11.8, K 3.3 otherwise unremarkable. [facility]LY [facility] Medical History Acute bacterial sinusitis Allergic rhinitis Cataracts, bilateral Chronic insomnia Essential hypertension Family history of colon cancer in father History of colonic polyps History of GI bleed History of ventral hernia Hypertension Mixed hyperlipidemia Transient ischemic attack (TIA) Surgical History Anesthesia History of cholecystectomy (~1994) History of hernia repair (~2003) Family History Mother Cancer Hypertension History of heart disease Father Colon cancer Myocardial infarction Brother Hypertension Diabetes mellitus Congestive heart failure Brother Diabetes mellitus Hypertension Social History details: Single, retired household members: none lives independently: Yes Smoking Status: Never smoker alcohol intake: current Meds Home Medications and Allergies Home Medications Medication Instructions Recorded Confirmed Type rosuvastatin 10 mg tablet 10 mg PO DAILY #90 tabs 12/12/22 03/28/23 Rx valsartan 160 mg tablet 160 mg PO DAILY #90 tabs 12/12/22 03/28/23 Rx acetaminophen 500 mg capsule 1,000 mg PO BEDTIME PRN Pain, 03/15/23 03/28/23 Rx Moderate #30 caps ondansetron 4 mg disintegrating 4 mg PO Q8H PRN nausea and 03/15/23 03/28/23 Rx tablet vomiting #30 tabs Allergies Allergy/AdvReac Type Severity Reaction Status Date / Time morphine Allergy Unknown Agitated Verified 03/28/23 15:30 amlodipine AdvReac Intermediate constipatio Verified 03/28/23 15:30 n enalapril AdvReac Intermediate Cough Verified 03/28/23 15:30 losartan AdvReac Intermediate Cramping Verified 03/28/23 15:30 of the Muscles Exam Vital Signs (past 8 hours): - 03/28/23 15:22 03/28/23 17:23 Temperature 98.6 F 97.5 F L Pulse Rate 105 H 87 Respiratory Rate 15 16 Blood Pressure 182/99 H 161/82 H Pulse Oximetry 100 95 Oxygen Delivery Method Room Air Oxygen Delivery Method Room Air Narrative Exam Narrative: GENERAL: A well nourished, well developed adult, resting comfortably, in slight distress. HEENT: Normocephalic, atraumatic. No scleral icterus CHEST: Rising symmetrically. No audible wheezes CARDIOVASCULAR: Warm and well perfused. Regular rate ABDOMEN: Tender non erythematous fluid collection at the midline between the umbilicus and the pubic bone. No active drainage. Brannon are removed. EXTREMITIES: Normal tone and without edema. NEUROLOGIC: Moving all extremities spontaneously. No gross motor deficits. Objective Labs 03/28/23 15:40 03/28/23 15:40 Labs: Laboratory Results - last 24 hr 03/28/23 03/28/23 03/28/23 15:40 15:40 15:40 WBC 11.2 H RBC 4.22 L Hgb 12.5 L Hct 36.2 L MCV 85.8 MCH 29.5 MCHC 34.4 RDW 14.0 Plt Count 538 H Neut % (Auto) 68.7 Lymph % (Auto) 23.0 L [place] % (Auto) 7.6 Eos % (Auto) 0.3 L Baso % (Auto) 0.4 Neut # (Auto) 7700 H Lymph # (Auto) 2600 [place] # (Auto) 800 Eos # (Auto) 0 Baso # (Auto) 0 Sodium 138 Potassium 3.3 L Chloride 102 Carbon Dioxide 23 BUN 9 Creatinine 0.65 L Estimated GFR > 60 BUN/Creatinine Ratio 13.8 Glucose 111 H Lactate 1.7 Calcium 9.3 Total Bilirubin 0.7 AST 30 ALT 30 Alkaline Phosphatase 131 H Total Creatine Kinase 32 L Troponin I 0.013 Total Protein 8.1 Albumin 4.3 Globulin 3.8 Albumin/Globulin Ratio 1.1 Urine Color Urine Appearance Urine pH Ur Specific [place] Urine Protein Urine Glucose (UA) Urine Ketones Urine Occult Blood Urine Nitrate Urine Bilirubin Urine Urobilinogen Ur Leukocyte Esterase Urine RBC Urine WBC Ur Squamous Epith Cells Urine Bacteria Ur Culture Indicated? 03/28/23 16:09 WBC RBC Hgb Hct MCV MCH MCHC RDW Plt Count Neut % (Auto) Lymph % (Auto) [place] % (Auto) Eos % (Auto) Baso % (Auto) Neut # (Auto) Lymph # (Auto) [place] # (Auto) Eos # (Auto) Baso # (Auto) Sodium Potassium Chloride Carbon Dioxide BUN Creatinine Estimated GFR BUN/Creatinine Ratio Glucose Lactate Calcium Total Bilirubin AST ALT Alkaline Phosphatase Total Creatine Kinase Troponin I Total Protein Albumin Globulin Albumin/Globulin Ratio Urine Color Yellow Urine Appearance Clear Urine pH 6.5 Ur Specific [place] <=1.005 Urine Protein Negative Urine Glucose (UA) Negative Urine Ketones Negative Urine Occult Blood Trace-intact Urine Nitrate Negative Urine Bilirubin Negative Urine Urobilinogen 0.2 Ur Leukocyte Esterase Negative Urine RBC 0-1/hpf Urine WBC None seen Ur Squamous Epith Cells 0-1 /hpf Urine Bacteria None seen Ur Culture Indicated? Cult not indicated Assessment & Plan Assessment and plan (1) Abdominal wall abscess: Status: Acute Assessment & Plan narrative: 67-year-old man history of numerous abdominal surgeries 3 weeks status post exploratory laparotomy and small-bowel resection for an enterocutaneous fistula who has developed a fluid collection/abscess within the midline incision. CT scan personally reviewed demonstrates 2, 6 cm fluid collections, 1 within the abdominal wall and 1 within the left abdomen likely connected. -NPO after midnight with IV fluid -Zosyn -OR 03/29 for incision and drainage of abdominal wall fluid collection, possible laparotomy. -SCDs for VTE prophylaxis
[2023-03-28] MEDS: LACTATED RINGERS 1,000 ML 100 ML IV (17:43)
[2023-03-28 18:36] VITALS: BMI 28.4
[2023-03-28 18:39] VITALS: O2SAT 96
[2023-03-28 19:15] VITALS: BP 156/90; PULSE 87; RESP 18; TEMP 36.8; O2SAT 98
[2023-03-28 22:00] VITALS: O2SAT 98
[2023-03-28] MEDS: PIPERACILLIN/TAZO 3.375 GM in SODIUM CHLORIDE 0.9% 100 ML IV (23:10)
[2023-03-28] MEDS: OXYCODONE IR 5 MG TABLET PO (23:56)
[2023-03-29] VITALS (19 sets, daily range): BP systolic 129–189; BP diastolic 73–112; PULSE 71–114; RESP 16–20; TEMP 36.3–37.4; O2SAT 95–99; BMI 28.4
[2023-03-29] MEDS: LACTATED RINGERS 1,000 ML 100 ML IV ×3 (05:59→18:54)
[2023-03-29] MEDS: PIPERACILLIN/TAZO 3.375 GM in SODIUM CHLORIDE 0.9% 100 ML IV ×2 (08:20→16:50)
--- NOTE | 2023-03-29 12:41 | PM.PREOP ---
Pre-operative Note Interval Note History & Physical reviewed/Exam performed by Physician: Yes Changes to H&P: No H&P completed within 30 days and has changed as indicated here:: No interval changes in health. He remains hospitalized with a fluid collection within the abdominal midline and extending into the abdomen. We again reviewed the surgical plan which is for incision and drainage of abdominal wall abscess in the operating room. His questions have been answered and he is in agreement with this plan.
--- NOTE | 2023-03-29 12:58 | SUR.HOLD ---
potassium to be hung in OR per Dr Flowers.
--- NOTE | 2023-03-29 13:21 | SUR.OPER ---
Supine on padded OR bed, head on pillow, arms secured on padded arm boards at <90 degrees abduction, legs uncrossed, safety belt at thigh, tape over blanket over lower legs.
[2023-03-29] MEDS: POTASSIUM CHLORIDE IN WATER 10 MEQ/100 ML PIGGYBACK 100 MEQ IV ×4 (13:22→18:55)
--- NOTE | 2023-03-29 13:41 | CM.DANOTE ---
Addendum entered by SANDRA Duran 03/29/23 15:19: PERFORMING ARTS ROAD MANAGER received call from provider regarding patient's need for wound vac and HH nursing when he d/c from here. PERFORMING ARTS RO[address] MANAGER called Suleiman from wound vac- out of [facility] directed me to Eli Roa (phone [phone]). Eli reported she would need script, H&P, face sheet, OP note, HH agency, and wound information for referral. (fax #[phone]). Eli reported provider can also email them the script information if needed. PERFORMING ARTS RO[address] MANAGER faxed H&P, facesheet, and OP note draft to wound vac clinic to begin draft. Still need script and HH information. PERFORMING ARTS ROAD MANAGER contacted provider requesting to fill out form, no response at this time. Form needed left behind facesheet, needed information highlighted on form. Plan: CM team will need to get patient's preference from HH agency in AM and begin referral process. Provider will complete referral form and highlighted section. CM team will fax final clinical information to wound fax clinic. CM team will complete full assessment. CM team will continue to follow closely. SANDRA Duran Original Note: DCP Brief Assessment: Patient is a 67yo male here with a long history of abdominal surgeries. Patient was here 03/05/23 through 03/15/23 for a small bowel resection. Patient reports he was healing well at home however approximately 5 days ago he noticed some drainage from his surgical site as well as some swelling. He states that he has been recording his temperature every day and has measured temperatures up to 100.7F (ER Report). Per Dr. Lawrence note, OR 03/29 for incision and drainage of abdominal wall fluid collection, possible laparotomy. PCP Benny Figueroa [employer] Medicare and self pay PERFORMING ARTS ROAD MANAGER reviewed EMR. PERFORMING ARTS RO[address] MANAGER unable to meet with patient due to either being in OR or just coming out of the OR. PERFORMING ARTS ROAD MANAGER decided to let patient rest at this time. Per previous PERFORMING ARTS ROAD MANAGER d/c assessment, Patient lives alone, indp in all ADLs and has 4 siblings that all live in [place] and are willing to help me out Patient admits it is difficult to accept help but his siblings are there for me if he needs them. Per previous outpatient case manager notes, patient d/c home with OP follow up. [facility] in [place]. Plan: CM team will continue to follow closely for needs and a more comprehensive d/c assessment tomorrow day 1 post op. Likely home when medically stable. Consider HH r/o. SANDRA Duran Discharge Planning/Care Management Advanced directive, confirm from FAMILY Start: 03/28/23 18:38 Freq: Q24H Status: Active Protocol: Document 03/28/23 18:38 EM (Rec: 03/28/23 18:39 EM [id number]) Advance Directive, confirm on record Time 18:39 Person contacted patient Copy received No CM Discharge Assessment Start: 03/29/23 13:37 Freq: Status: Active Protocol: Document 03/29/23 13:38 SL (Rec: 03/29/23 13:40 SL [id number]) Discharge Planning Assessment Assigned Locomotive Repairer [employer]el SANDRA Ellis DPOA/Assigned Designee Name Caterina Sheehan (sister) Contact Information [phone] Advance Directives? Yes Advance Directives on File No History Provided By Medical Record Has Patient been admitted in last 30 Yes days? Comment Here 03/05/23 through 03/15/12 Prior Living Arrangements Apartment/Condo Household Members none Type of transporation used prior to Drives own vehicle admit Facility Name Admitted From: [facility] Willing to Return to Facility? Yes Independent with ADL's Yes Is patient alert and oriented? Yes Comment LIkely home w/the support of his siblings, per patient Discharge Plan Home Transportation Arrangement Friend Referrals Initiated None needed Whiteboard Updated in Patient Room with No name and ext. # of Locomotive Repairer [employer]el Review Status In Process Next Review Type Continued Stay Review
--- NOTE | 2023-03-29 13:58 | PC.NURSE ---
Addendum entered by Tiffany Marte R.N. 03/29/23 19:21: Pt wound vac w/blockage alarm multiple attempts to fix to no avail. Dr Lawrence here to replace dsg. Continue w/plan of care. Addendum entered by Tiffany Marte R.N. 03/29/23 17:10: Pt returned from surgery awake Denies discomfort. Wound vac in place, IVF infusing as per pump as per orders. Call li w/in reach, bed alarm on for pt safety. Continue w/plan of care. Original Note: Pt denies discomfort. Abd dsg CDI IVF infusing via pump as per orders. Escorted to [facility] suite @ [id number] by surgical staff. Continue w/plan of care.
--- NOTE | 2023-03-29 14:22 | P.OP_ITS ---
Operative Date/Time/Diagnoses Date of procedure: 03/29/23 Time of procedure: 14:22 Pre-op diagnosis: Abdominal wall abscess Post-op diagnosis: same Procedure & Clinicians Procedure: Incision and drainage of abdominal wall abscess. Wound VAC placement Same procedure as scheduled: Yes Surgeon: Elvin Lawrence Anesthesia Type: General Operative Notes Findings: Approximally 100 mL of purulent fluid drained from the midline abscess cavity which tracks the length of the incision. Specimen(s): other (Abdominal wall abscess) Estimated Blood Loss (mL): 10 Procedure in detail: Patient was brought to the operating room placed supine on the table. Bilateral lower extremity compression devices were applied. General anesthesia was induced and he was intubated with an endotracheal tube. He received Zosyn prior to skin incision. He was then prepped and draped in sterile condition. Time- out performed. The midline incision was opened sharply. Upon entry into the subcutaneous tissue there was a large volume of purulent material which was sent for culture. The wound was evacuated and the cavity was explored which extended the length of the incision. The wound was then pulse lavaged and then carefully examined. It appears that the fascia is intact it is unclear whether or not the left-sided intra-abdominal collection was connected to the abdominal wall abscess or not. The wound was gently explored with finger for additional tracking. We considered opening the fascia but given that he had previous enterocutaneous fistula and he was 1 month from a exploratory laparotomy my concern with opening the fascia was that we cause additional injury to the bowel. A wound VAC was then placed into the cavity and set to 125 mmHg intermittent suction. He tolerated the procedure well and was transferred to recovery in stable condition. Post-operative Condition: stable Disposition: Acute Care
[2023-03-29] MEDS: SILVER NITRATE STICK 2 EACH TOP (20:02)
[2023-03-29] MEDS: LIDOCAINE 2% INJ MDV 20ML 20 ML INJ (20:03)
[2023-03-29] MEDS: fentaNYL 100 MCG/2 ML INJ (20:03)
[2023-03-29] MEDS: OXYCODONE IR 5 MG TABLET PO (20:48)
[2023-03-30] VITALS (10 sets, daily range): BP systolic 118–158; BP diastolic 71–81; PULSE 69–94; RESP 17–18; TEMP 36.6–37; O2SAT 94–99
[2023-03-30] MEDS: PIPERACILLIN/TAZO 3.375 GM in SODIUM CHLORIDE 0.9% 100 ML IV ×4 (00:10→23:59)
[2023-03-30 06:45] LABS: BUN Creatinine Ratio 16.9 (6-22); Blood Urea Nitrogen 11 mg/dL (9-20); Calcium 8.6 mg/dL (8.4-10.2); Carbon Dioxide 21 mmol/L (22-32); Chloride 107 mmol/L (98-107); Estimated Glomerular Filt Rate > 60 mL/min (>60); Glucose 124 mg/dL (80-110); HEMOLYSIS 34 (0-50); Potassium 4.4 mmol/L (3.4-5.1); Sodium 135 mmol/L (137-145)
[2023-03-30] MEDS: ATORVASTATIN 20 MG TABLET PO (08:40)
[2023-03-30] MEDS: VALSARTAN 80 MG TABLET 160 MG PO (08:46)
--- NOTE | 2023-03-30 09:51 | PC.NURSE ---
Addendum entered by Tiffany Marte R.N. 03/30/23 16:57: Pt had had realatively uneventful day Ambutaled several loops in hallway w/sba IVF continue as per orders. Call light w/in reach, bed alarm on for pt safety. Continue w/ plan of care. Original Note: Pt denies discomfort. IVF LR @ 100cc/hr infusing via pump into RAC w/o incidence. Wound vac intact/patent. ABD dsg intact. Call light w/in reach, pt calls appropriately for needs.
--- NOTE | 2023-03-30 10:25 | PM.PN.1 ---
Subjective Subjective Date Patient Seen: 03/30/23 Time Patient Seen: 10:26 Interval history: No new complaints. Exam Vital Signs (past 8 hours): - 03/30/23 06:00 03/30/23 04:18 03/30/23 08:00 Temperature 98.6 F 97.9 F Pulse Rate 84 79 Respiratory Rate 18 17 Blood Pressure 118/71 135/81 Pulse Oximetry 96 96 99 Oxygen Delivery Method Room Air Oxygen Flow Rate 0 0 03/30/23 10:00 Temperature Pulse Rate Respiratory Rate Blood Pressure Pulse Oximetry Oxygen Delivery Method Room Air Oxygen Flow Rate Oxygen Delivery Method Room Air Oxygen Flow Rate 0 Narrative Exam Narrative: Abdomen soft wound vac with good seal Objective Labs 03/28/23 15:40 03/30/23 06:10 Labs: Laboratory Results - last 24 hr 03/30/23 06:10 Sodium 135 L Potassium 4.4 Chloride 107 Carbon Dioxide 21 L BUN 11 Creatinine 0.65 L Estimated GFR > 60 BUN/Creatinine Ratio 16.9 Glucose 124 H Calcium 8.6 PFSH Medical History Acute bacterial sinusitis Allergic rhinitis Cataracts, bilateral Chronic insomnia Essential hypertension Family history of colon cancer in father History of colonic polyps History of GI bleed History of ventral hernia Hypertension Mixed hyperlipidemia Transient ischemic attack (TIA) Surgical History Anesthesia History of cholecystectomy (~1994) History of hernia repair (~2003) Family History Mother Cancer Hypertension History of heart disease Father Colon cancer Myocardial infarction Brother Hypertension Diabetes mellitus Congestive heart failure Brother Diabetes mellitus Hypertension Social History details: Single, retired household members: none lives independently: Yes Smoking Status: Never smoker alcohol intake: current Assessment & Plan Assessment and plan (1) Abdominal wall abscess: Status: Acute Plan Continue wound vac and antibiotics
[2023-03-30] MEDS: LACTATED RINGERS 1,000 ML 100 ML IV ×2 (10:51→20:59)
--- NOTE | 2023-03-30 11:16 | CM.DPNOTE ---
Discharge Planning Note: Met with patient and discussed discharge planning needs. Patient underwent I&D of abdominal surgical wound (Resection surgery on 03/06/[address] Lawrence) done yesterday 03/29/23 Discussed Home Health for wound care and the need for a Wound Clinic appointment here to be followed. Discussed Saturday we can talk about making an appointment to coordinate with surgeon and the clinic and then to determine when best for Home health to start. Fax failed to send to Eli Yepez for [facility] Wound Vac, spoke with her and we decided to will email to her. Wound Vac form, 2 pages, will be sent to her as well. Signed by Dr Morgan today. [facility] patient within 24 to 48 hours of discharge early this week. Referral faxed. PLAN: Follow up with surgeon for discharge planning. Follow up with [facility] when know dc date. Follow up with [facility] Wound Vac Eli Yepez [email or web address]), phone: [phone]. (Fax numbers did not work so had to send referral and 2 page Vac form via email to Eli). Isabella Santana RN/DCP
[2023-03-30] MEDS: fentaNYL 100 MCG/2 ML INJ 50 MCG IV (16:02)
[2023-03-31] VITALS (9 sets, daily range): BP systolic 137–174; BP diastolic 60–93; PULSE 65–80; RESP 16–18; TEMP 36.2–37.2; O2SAT 96–100
[2023-03-31] MEDS: OXYCODONE IR 5 MG TABLET PO ×2 (00:11→10:04)
[2023-03-31] MEDS: LACTATED RINGERS 1,000 ML 100 ML IV (06:03)
--- NOTE | 2023-03-31 06:18 | PC.NURSE ---
Pt A&Ox4, VSS, RA. Pt in bed through most of shift, up to urinal/BSC as needed. Abdomen round and tender but not firm, wound vac in place. Oxycodone given for pain x1, pt reported manageable pain throughout rest of shift.
--- NOTE | 2023-03-31 09:10 | PC.NURSE ---
Call to room by Pt as the wound vac had become disconnected. Upon inspection it was noted that the suction head had become detached. Head was replaced and resealed. Wound vac functioned for a short time but needed to be assessed again. Complete redo including foam was initiated. This Nurse went to get supplies. Dr. Morgan was in the [address] way and this Nurse explained the situation. Orders changed per Dr. Morgan to damp to dry dressing changes and discontinue the wound vac. Did dressing change per order with Cira ANTUNEZ.
[2023-03-31] MEDS: ATORVASTATIN 20 MG TABLET PO (09:19)
[2023-03-31] MEDS: ENOXAPARIN 40 MG/0.4 ML SYRINGE SUBCUT (09:19)
[2023-03-31] MEDS: VALSARTAN 80 MG TABLET 160 MG PO (09:19)
[2023-03-31] MEDS: levoFLOXacin 750 MG/150 ML PIGGYBACK 100 MG IV (09:19)
[2023-03-31 09:34] LABS: Hematocrit 30.9 % (41-53); Hemoglobin 10.5 g/dL (13.5-17.5); Mean Corpuscular HGB Conc 34.1 % (30-36); Mean Corpuscular Hemoglobin 29.8 PG (26-34); Mean Corpuscular Volume 87.2 fL (80-100); Platelet Count 381 X10^3/uL (150-400); Red Blood Cell Count 3.54 X10^6/uL (4.5-5.9); White Blood Cell Count 8.6 X10^3/uL (4.5-11.0)
--- NOTE | 2023-03-31 10:37 | PC.NURSE ---
pt medicated for abd pain now sleeping no distress
--- NOTE | 2023-03-31 11:22 | PM.PN.1 ---
Subjective Subjective Date Patient Seen: 03/31/23 Time Patient Seen: 11:22 Interval history: Wound vac lost seal and has been changed to wet-to-dry dressings. There is minimal saturation of the gauze so far. Pain is minimal. Antibiotics have been changed to levaquin because of resistance to zosyn on intra-op wound culture. Exam Vital Signs (past 8 hours): - 03/31/23 05:47 03/31/23 06:00 03/31/23 09:00 Temperature 98.2 F 97.9 F Pulse Rate 78 65 Respiratory Rate 18 17 Blood Pressure 139/61 155/82 H Pulse Oximetry 97 97 97 Oxygen Delivery Method Room Air Oxygen Flow Rate 0 0 Oxygen Delivery Method Room Air Oxygen Flow Rate 0 Narrative Exam Narrative: In good spirits dry guauze dressings are dry and clean Objective Labs 03/31/23 09:30 03/30/23 06:10 Labs: Laboratory Results - last 24 hr 03/31/23 09:30 WBC 8.6 RBC 3.54 L Hgb 10.5 L Hct 30.9 L MCV 87.2 MCH 29.8 MCHC 34.1 RDW 14.0 Plt Count 381 PFSH Medical History Acute bacterial sinusitis Allergic rhinitis Cataracts, bilateral Chronic insomnia Essential hypertension Family history of colon cancer in father History of colonic polyps History of GI bleed History of ventral hernia Hypertension Mixed hyperlipidemia Transient ischemic attack (TIA) Surgical History Anesthesia History of cholecystectomy (~1994) History of hernia repair (~2003) Family History Mother Cancer Hypertension History of heart disease Father Colon cancer Myocardial infarction Brother Hypertension Diabetes mellitus Congestive heart failure Brother Diabetes mellitus Hypertension Social History details: Single, retired household members: none lives independently: Yes Smoking Status: Never smoker alcohol intake: current Assessment & Plan Assessment and plan (1) Abdominal wall abscess: Status: Acute Plan Continue daily dressing changes, levaquin
--- NOTE | 2023-03-31 13:04 | CM.DPNOTE ---
Discharge Planning Note: Dr Morgan in earlier. Wound Vac had malfunctioned and nurse was told to discontinue for now and apply gauze dressing. See my note from yesterday, Right faxed referral to Eli Yepez at [facility] Wound Vac along with the Vac form. Her email is: [email or web address], phone: [phone]. PLAN: Follow up on Saturday with Eli and determine timeline for getting Vac here (assuming Dr Lawrence will continue with Wound Vac). Follow for needs, when medically cleared, discharge home with [facility], notify [facility] and send DC summary. Contact wound clinic for initial appointment. Isabella Santana RN/DCP
[2023-04-01] VITALS (8 sets, daily range): BP systolic 125–157; BP diastolic 83–96; PULSE 79–94; RESP 16–18; TEMP 36.6–37.3; O2SAT 96–99
[2023-04-01] MEDS: LACTATED RINGERS 1,000 ML 100 ML IV ×2 (02:31→13:12)
[2023-04-01] MEDS: ATORVASTATIN 20 MG TABLET PO (09:50)
[2023-04-01] MEDS: VALSARTAN 80 MG TABLET 160 MG PO (09:50)
[2023-04-01] MEDS: levoFLOXacin 750 MG/150 ML PIGGYBACK 100 MG IV (09:50)
--- NOTE | 2023-04-01 12:36 | PM.PN.1 ---
Subjective Subjective Date Patient Seen: 04/01/23 Time Patient Seen: 12:36 Interval history: Operative report some colicky abdominal pain overnight. His wet-to-dry dressing was changed yesterday evening. Exam Vital Signs (past 8 hours): - 04/01/23 08:00 04/01/23 09:50 04/01/23 09:50 Temperature 97.9 F Pulse Rate 88 Respiratory Rate 17 Blood Pressure 145/96 H Pulse Oximetry 98 98 Oxygen Delivery Method Room Air Room Air Oxygen Flow Rate 0 Oxygen Delivery Method Room Air Oxygen Flow Rate 0 Narrative Exam Narrative: The wound bed demonstrates some small areas of fibrinous exudate No obvious fistula Objective Labs 03/31/23 09:30 03/30/23 06:10 [facility] Medical History Acute bacterial sinusitis Allergic rhinitis Cataracts, bilateral Chronic insomnia Essential hypertension Family history of colon cancer in father History of colonic polyps History of GI bleed History of ventral hernia Hypertension Mixed hyperlipidemia Transient ischemic attack (TIA) Surgical History Anesthesia History of cholecystectomy (~1994) History of hernia repair (~2003) Family History Mother Cancer Hypertension History of heart disease Father Colon cancer Myocardial infarction Brother Hypertension Diabetes mellitus Congestive heart failure Brother Diabetes mellitus Hypertension Social History details: Single, retired household members: none lives independently: Yes Smoking Status: Never smoker alcohol intake: current Assessment & Plan Assessment and plan (1) Abdominal wall abscess: Status: Acute Plan Continue with local wound care using wet-to-dry dressings. Dr. Lawrence will be here tomorrow and may elect to replace the wound VAC to facilitate discharge
--- NOTE | 2023-04-01 12:53 | CM.DPC ---
Addendum entered by SANDRA Don 04/01/23 15:01: ADD: Return call from Suleiman at [facility] stating they received the faxed clinicals and pt's wound vac was approved by insurance and order was placed and showing as it will be delivered bedside to pt's room tomorrow 04/02 by 1200. [facility] would like d/c summary faxed to them at discharge. TESFAYE called [facility] and they have not received a referral yet for new patient/start of care for outpt wound care after d/c and TESFAYE faxed clinicals to [facility] at fax [phone] to review and updated that [facility] wound vac to arrive tomorrow. BF Original Note: DCP Cont: Per Surgeon, pt's wound vac remains off and wet to dry dressing changes until original Surgeon is back and rounds tomorrow 04/02/23 to determine if wound vac still needed for d/c. TESFAYE spoke to pt bedside and he confirms he would like final determination of wound vac by Dr. Lawrence tomorrow when he returns and the pt is agreeable to wound vac if needed, HH RN and outpt wound clinic as needed. TESFAYE spoke to Suleiman at [facility] and confirmed they did receive the order form but need the Operative Note sent and they have the wound measurements for length and width but need depth in order to submit to insurance. TESFAYE faxed signed Op Note and awaiting Surgeon director of archives to get the depth measurement of the wound to send to [facility]. Plan: TESFAYE to follow closely in the AM when Surgeon Dr. Lawrence rounds to determine if wound vac needed at d/c. SANDRA Don
[2023-04-01] MEDS: ACETAMINOPHEN 325 MG TABLET 650 MG PO (13:15)
--- NOTE | 2023-04-01 13:26 | PC.NURSE ---
pt ambulated twice in the hallways today. minimal pain. tylenol given.
[2023-04-02] VITALS (8 sets, daily range): BP systolic 132–146; BP diastolic 76–87; PULSE 68–95; RESP 17–18; TEMP 36–37.4; O2SAT 97–99
[2023-04-02] MEDS: LACTATED RINGERS 1,000 ML 100 ML IV (00:36)
[2023-04-02] MEDS: levoFLOXacin 750 MG/150 ML PIGGYBACK 100 MG IV (09:12)
[2023-04-02] MEDS: VALSARTAN 80 MG TABLET 160 MG PO (09:12)
[2023-04-02] MEDS: ATORVASTATIN 20 MG TABLET PO (09:12)
--- NOTE | 2023-04-02 15:02 | CM.DPC ---
DCP Discharge with Wound Vac Per Surgeon, he confirmed [facility] wound vac was delivered to pt's room and plan is to place home wound vac on pt this afternoon likely around 1500 and agreeable with pt discharging home with outpt Wound Clinic and [facility]. SW called [facility] and confirmed they have scheduled the pt for next week SatApr 10 to arrive at 1330 and that they already called pt and provided this information. TESFAYE called [facility] and requested RN start of care for ideally this week 04/05 or Sat 04/06 to assist with wound vac and [facility] intake working to get pt scheduled for Sat or Sat and will call pt as well. TESFAYE met bedside with pt and family member and updated on above and pt in agreement and appreciative and looking forward to getting home today via family POV. TESFAYE updated RN and also called Suleiman at [facility] and updated. SW to fax d/c summary to [facility], [facility], and [facility] when available in EMR later today. Plan: Patient to d/c home via family POV early evening after Surgeon places home wound vac with [facility] and [facility] to follow. SANDRA Don
--- NOTE | 2023-04-02 16:14 | P.DS_ITS ---
History of Present Illness History of Present Illness Date Patient Seen: 04/02/23 Time Patient Seen: 16:14 Chief complaint: Infected insision site Narrative: Mr. 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 He has had numerous abdominal surgeries at outside hospitals including bowel resection, open cholecystectomy, ventral hernia repair. When he presented to the hospital earlier this month he had abdominal pain and wound drainage from the midline. He was taken to the operating room and a loop of small bowel was adherent to a ventral mesh where it had fistualized. Small-bowel resection was performed fascia was closed as best as possible but there is significant loss of abdominal domain. He reports that over the past several days he had serosanguineous drainage from the midline wound near the umbilicus and abdominal distention. He was seen in the surgical clinic today and given concerns for a wound infection brought to the emergency department for further evaluation. CT abdomen pelvis at admission demonstrates a large subcutaneous fluid collection along the anterior abdominal wall and a second intraperitoneal collection, no free fluid or air. Anastomosis is intact. Labs demonstrate white blood cell count of 11.8, K 3.3 otherwise unremarkable. Discharge Providers Provider Date of admission: 03/29/23 09:25 Discharge Date: 04/02/23 Primary care physician: Benny Figueroa MD Consults: 03/30/23 12:11 Consult to Pastoral Services Routine Comment: PT WOULD LIKE VISIT FROM [facility] ALMENDARE[facility] PLEASE Discharge provider: Elvin Lawrence MD Summary Hospital Course Discharge Diagnosis: abdominal wall abscess Hospital Course: Mr. Will was taken to the operating room March 29 and underwent incision and drainage of an abdominal wall abscess. Imaging describes 2 fluid collections 1 intra-abdominal and 1 within the abdominal wal, l I suspect that they are both connected and were both drained during the course of his operation. The fascia is intact and a wound VAC was placed, the abdomen was not formally opened given that he is 1 month out from his initial operation and this was deemed to be too high-risk. The wound measures 11 x 7 x 3 cm. Cultures demonstrated Enterobacter, antibiotics were transitioned from Zosyn to levofloxacin. At discharge he is significantly improved. His abdominal pain has resolved, white blood cell count normalized and his appetite has returned. The wound VAC was ch anged by myself on the date of discharge SaturdayApril 02 and the wound is clean. He will be discharged home with home health to change the wound VAC either Saturday or SaturdayApril 05 and subsequent follow-up will be at the [facility] the following week. He will be discharging home on a course of oral levofloxacin and I discussed with the patient I anticipate performing a CT abdomen pelvis within the next 2 weeks to evaluate the status of the intra-abdominal fluid collection. Exam Vital Signs (past 8 hours): - 04/02/23 09:00 04/02/23 13:00 04/02/23 12:00 Temperature 98.1 F Pulse Rate 95 H Respiratory Rate 17 Blood Pressure 132/76 Pulse Oximetry 98 99 98 Oxygen Delivery Method Room Air Room Air Oxygen Flow Rate 0 0 0 Oxygen Delivery Method Room Air Oxygen Flow Rate 0 Narrative Exam Narrative: General adult man alert oriented no acute distress Abdominal midline open midline wound measuring 11 x 7 x 3 cm. Minimal fibrinous debris. Wound edges with small amount of granulation tissue present. Objective Labs 03/31/23 09:30 03/30/23 06:10 [facility] Medical History Acute bacterial sinusitis Allergic rhinitis Cataracts, bilateral Chronic insomnia Essential hypertension Family history of colon cancer in father History of colonic polyps History of GI bleed History of ventral hernia Hypertension Mixed hyperlipidemia Transient ischemic attack (TIA) Surgical History Anesthesia History of cholecystectomy (~1994) History of hernia repair (~2003) Family History Mother Cancer Hypertension History of heart disease Father Colon cancer Myocardial infarction Brother Hypertension Diabetes mellitus Congestive heart failure Brother Diabetes mellitus Hypertension Social History details: Single, retired household members: none lives independently: Yes Smoking Status: Never smoker alcohol intake: current Discharge Plan Discharge Plan Patient Disposition: Home Provider Discharge Comment: No lifting >20 lbs for the next 1 month I will try to see you during your upcoming wound care visit Please contact the surgical clinic with any questions or concerns Continue Levofloxacin as prescribed Discharge orders & Medications Prescriptions: New levofloxacin 500 mg tablet 500 mg PO DAILY Qty: 10 0RF Continued valsartan 160 mg tablet 160 mg PO DAILY Qty: 90 3RF rosuvastatin 10 mg tablet 10 mg PO DAILY Qty: 90 3RF Patient Comments: pt takes at 2100 ondansetron 4 mg tablet,disintegrating 4 mg PO Q8H PRN (Reason: nausea and vomiting) Qty: 30 0RF acetaminophen 500 mg Capsule 1,000 mg PO BEDTIME PRN (Reason: Pain, Moderate) Qty: 30 0RF Follow up/Referrals: Elvin Lawrence MD [Physician] - 2 Weeks Diet/Activity/Treatments Diet: Diet as Tolerated Skin/Wound/Dressing Care Report to your healthcare provider any signs of infection, such as:: chills, fever, increased pain, unusual drainage and unusual redness Other wound treatment: You have a scheduled appointment at [facility] 04/10/23 arrive 1330. [facility] RN should be calling to schedule visit to the home on Fri 04/05 or Sat 04/06. Visit Report/Discharge Packet Instructions: DI for Cellulitis -- Adult, Levofloxacin, DI for Ventral Hernia, DI for Incision and Drainage, [facility]: Wound Care Stand Alone Forms: Patient Portal/API, Stroke Signs & Symptoms Discharge Data Primary Care Provider: Benny Figueroa V
--- NOTE | 2023-04-02 16:38 | PC.NURSE ---
Pt is dressed and ready for discharge home with Brother. IV's have been removed and Wound Vac has been placed and discharge instructions have been reviewed. Stroke education reviewed, s/s of infection reviewed. Encouraged Pt to drink plenty of fluids to prevent constipation or dehydration. Reminded Pt not to lift greater than 20 pounds. Abdominal binder placed and Pt instructed in its use. Pt and brother instructed in use of Wound Vac and folow up with Wound Care Center and Home Health orders placed. Pt denies further questions and was taken out via w/c by [employer] TECHNICIAN to POV with Brother and all belongings.
== END 2023-04-02 16:42 | disposition home or self-care (01) | DRG 856 ==
LOC: ED 15:39 → AC 16:28
PROVIDERS: Admitting Provider Surgery; Emergency Provider Emergency Medicine; PCP Internal Medicine; Referring Provider Emergency Medicine; Visit Provider Surgery
PROC: 0W9G00Z Drainage of Peritoneal Cavity with Drainage Device, Open Approach (ICD-10-PCS; principal; 2023-03-29 12:45)
DX: T81.43XA Infection following a procedure, organ and space surgical site, initial encounter (principal); K65.1 Peritoneal abscess; B96.89 Other specified bacterial agents as the cause of diseases classified elsewhere; I10 Essential (primary) hypertension; E78.2 Mixed hyperlipidemia
CPT/HCPCS: 10180; 36415; 74177; 80048; 80053; 81001; 81003; 82550; 83605; 84484; 85025; 85027; 87040; 87070; 87075; 87077; 87186; 87205; 96365; 99222; 99284; 99285; G0378; J1100; J1650; J1956; J2250; J2405; J2543; J2704; J3010; Q9967

== ENCOUNTER → 2023-04-10 14:11 | Outpatient (CLI) | payer MEDICARE, SELFPAY ==
[2023-03-28 18:36] VITALS: BMI 28.4
== END ==
PROVIDERS: PCP Internal Medicine; Referring Provider Surgery; Visit Provider Surgery
DX: T81.31XA Disruption of external operation (surgical) wound, not elsewhere classified, initial encounter (principal); S31.109A Unspecified open wound of abdominal wall, unspecified quadrant without penetration into peritoneal cavity, initial encounter
CPT/HCPCS: 11042; 11045; 97606; 99203; 99212

== ENCOUNTER → 2023-04-18 14:49 | Outpatient (CLI) | payer MEDICARE, SELFPAY ==
[2023-03-28 18:36] VITALS: BMI 28.4
== END ==
PROVIDERS: PCP Internal Medicine; Referring Provider Surgery; Visit Provider Surgery
DX: T81.89XA Other complications of procedures, not elsewhere classified, initial encounter (principal); S31.109A Unspecified open wound of abdominal wall, unspecified quadrant without penetration into peritoneal cavity, initial encounter
CPT/HCPCS: 11042; 11045

== ENCOUNTER → 2023-04-25 14:14 | Outpatient (CLI) | payer MEDICARE, SELFPAY ==
[2023-03-28 18:36] VITALS: BMI 28.4
== END ==
PROVIDERS: PCP Internal Medicine; Referring Provider Surgery; Visit Provider Surgery
DX: T81.89XA Other complications of procedures, not elsewhere classified, initial encounter (principal); S31.109A Unspecified open wound of abdominal wall, unspecified quadrant without penetration into peritoneal cavity, initial encounter
CPT/HCPCS: 11042; 11045; 97605

== ENCOUNTER → 2023-05-02 14:31 | Outpatient (CLI) | payer MEDICARE, SELFPAY | PROVIDERS: PCP Internal Medicine; Referring Provider Surgery; Visit Provider Surgery | DX: T81.31XA Disruption of external operation (surgical) wound, not elsewhere classified, initial encounter (principal); S31.109A Unspecified open wound of abdominal wall, unspecified quadrant without penetration into peritoneal cavity, initial encounter | CPT/HCPCS: 99212; 99213 ==

== ENCOUNTER → 2023-05-07 15:03 | Outpatient (CLI) | payer MEDICARE, SELFPAY | LOC: WC 15:04 | PROVIDERS: PCP Internal Medicine; Referring Provider Surgery; Visit Provider Surgery | DX: T81.31XA Disruption of external operation (surgical) wound, not elsewhere classified, initial encounter (principal); S31.102A Unspecified open wound of abdominal wall, epigastric region without penetration into peritoneal cavity, initial encounter; I10 Essential (primary) hypertension | CPT/HCPCS: 17250; 99212; 99213 ==

== ENCOUNTER → 2023-05-14 14:45 | Outpatient (CLI) | payer MEDICARE, SELFPAY | PROVIDERS: PCP Internal Medicine; Referring Provider Surgery; Visit Provider Surgery | DX: S31.109A Unspecified open wound of abdominal wall, unspecified quadrant without penetration into peritoneal cavity, initial encounter (principal); T81.89XA Other complications of procedures, not elsewhere classified, initial encounter; R21 Rash and other nonspecific skin eruption | CPT/HCPCS: 11042; 99213 ==

== ENCOUNTER → 2023-05-21 14:18 | Outpatient (CLI) | payer MEDICARE, SELFPAY | PROVIDERS: PCP Internal Medicine; Referring Provider Surgery; Visit Provider Surgery | DX: S31.109A Unspecified open wound of abdominal wall, unspecified quadrant without penetration into peritoneal cavity, initial encounter (principal); T81.89XA Other complications of procedures, not elsewhere classified, initial encounter | CPT/HCPCS: 11042 ==

== ENCOUNTER → 2023-05-28 14:03 | Outpatient (CLI) | payer MEDICARE, SELFPAY | PROVIDERS: PCP Internal Medicine; Referring Provider Family Medicine; Visit Provider Surgery | DX: S31.109A Unspecified open wound of abdominal wall, unspecified quadrant without penetration into peritoneal cavity, initial encounter (principal); T81.31XA Disruption of external operation (surgical) wound, not elsewhere classified, initial encounter | CPT/HCPCS: 17250; 99213 ==

== ENCOUNTER → 2023-06-05 13:05 | Outpatient (CLI) | payer MEDICARE, SELFPAY | PROVIDERS: PCP Internal Medicine; Referring Provider Surgery; Visit Provider Surgery | DX: S31.109A Unspecified open wound of abdominal wall, unspecified quadrant without penetration into peritoneal cavity, initial encounter (principal); T81.31XA Disruption of external operation (surgical) wound, not elsewhere classified, initial encounter | CPT/HCPCS: 97602; 99212; 99213 ==

== ENCOUNTER → 2023-06-12 15:11 | Outpatient (CLI) | payer MEDICARE, SELFPAY | PROVIDERS: PCP Internal Medicine; Referring Provider Surgery; Visit Provider Surgery | DX: T81.31XA Disruption of external operation (surgical) wound, not elsewhere classified, initial encounter (principal); S31.102A Unspecified open wound of abdominal wall, epigastric region without penetration into peritoneal cavity, initial encounter | CPT/HCPCS: 99212; 99213 ==

== ENCOUNTER → 2023-06-19 14:56 | Outpatient (CLI) | payer MEDICARE, MEDICAID, SELFPAY | PROVIDERS: PCP Internal Medicine; Referring Provider Surgery; Visit Provider Surgery | DX: T81.31XA Disruption of external operation (surgical) wound, not elsewhere classified, initial encounter (principal); S31.102A Unspecified open wound of abdominal wall, epigastric region without penetration into peritoneal cavity, initial encounter | CPT/HCPCS: 99213 ==

== ENCOUNTER → 2023-06-25 13:04 | Outpatient (CLI) | payer MEDICARE, MEDICAID, SELFPAY | PROVIDERS: PCP Internal Medicine; Referring Provider Surgery; Visit Provider Surgery | DX: T81.31XD Disruption of external operation (surgical) wound, not elsewhere classified, subsequent encounter (principal) | CPT/HCPCS: 99212; 99213 ==